=== PATIENT | female | born 1995 | race Caucasian/White ===

== ENCOUNTER → 2017-10-11 12:55 | Outpatient (CLI) | payer OTHER, SELFPAY ==
[2017-10-11 16:04] LABS: Chlamydia Trachomatis by PCR Negative (Negative); Neisserai gonorrhoeae by PCR Negative (Negative); Probe Check PASS; Sample Adequacy Control PASS; Specimen Processing Control PASS
[2017-10-13 11:10] LABS: Hep C Antibodies <0.1 s/co ratio (0.0-0.9); Rubeola IgG Ab > 300.0 AU/mL (Immune >29.9); V-Zoster IgG (Immunity) < 135 index (Immune >165)
== END ==
PROVIDERS: Family Provider Pediatrics; PCP Pediatrics; Visit Provider Pediatrics
DX: Z00.00 Encounter for general adult medical examination without abnormal findings (principal)
CPT/HCPCS: 36415; 86706; 86735; 86762; 86765; 86787; 86803; 87491; 87591

== ENCOUNTER → 2018-06-29 15:32 | Outpatient (CLI) | payer OTHER, SELFPAY | PROVIDERS: Family Provider Pediatrics; PCP Pediatrics; Referring Provider Pediatrics; Visit Provider Pediatrics | DX: Z00.00 Encounter for general adult medical examination without abnormal findings (principal) | CPT/HCPCS: 86706; 86787 ==

== ENCOUNTER 2018-12-27 10:45 | Emergency (ER) | payer OTHER, SELFPAY ==
[2018-12-27 10:47] VITALS: BP 142/73; PULSE 99; RESP 18; TEMP 36.3; O2SAT 99; BMI 24.9
--- NOTE | 2018-12-27 11:04 | CT_ITS ---
STUDY: CT ABDOMEN AND PELVIS WITHOUT CONTRAST REASON FOR EXAM: Female, 23 years old. Left flank pain. Hematuria. UTI. RADIATION DOSAGE (If Supplied By Facility): CTDIvol = ( 6.50 ) mGy, DLP = ( 310.15 ) mGycm TECHNIQUE: Transaxial images were obtained from the dome of the diaphragm to the symphysis pubis without oral contrast, and without intravenous contrast. Sagittal and coronal images were reconstructed. Individualized dose optimization techniques were used for this CT. COMPARISON: None. FINDINGS: The visualized lung bases are unremarkable. The visualized portions of the heart are within normal limits. Normal liver. Normal gallbladder and extrahepatic biliary system. Normal spleen. Normal pancreas. Normal bilateral adrenal glands. Mild degree of right hydronephrosis and right hydroureter. No obstructing calculus is seen at this time. This may represent a recent passage of a calculus. Normal left kidney. Normal visualized stomach. Normal small intestine. Normal colon. The appendix is visualized and appears normal. Normal abdominal aorta. Normal inferior vena cava. Normal retroperitoneum. Distended urinary bladder. There is a 2 cm cyst in the right ovary. Normal abdominal wall. Normal osseous structures. CT/Abdomen/Pelvis without Cont IMPRESSION: Right-sided hydronephrosis and hydroureter. No obstructive site is visualized. This may represent changes secondary to a recently passed calculus. 2 cm cyst in the right ovary. Electronically Signed: Mic Castañeda, at 12:42 EDT , Service support ,
--- NOTE | 2018-12-27 11:32 | ED.DCSUM_ITS ---
History of Present Illness Chief Complaint: Flank Pain Narrative: 23-year-old female presents with left flank pain. She was recently diagnosed with a urinary tract infection and started on an oral antibiotic as well as Pyridium. Her symptoms have not resolved and she is now passing clots and having flank pain. She is concerned that she may have a kidney stone. She denies pelvic pain or vaginal bleeding. Denies fever. She did vomit twice yesterday. Pain is currently mild in severity. No relieving or exacerbating factors. Past Medical History - Allergies and Home Meds Allergies/Adverse Reactions: Allergies No Known Allergies Allergy (Verified 12/27/18 10:46) Primary Care Physician: May Taylor MD [Primary Care Provider] - Smoking Status: Never smoker Review of Systems General: Denies: Chills, Fever, Sweats Eyes: Denies: Visual changes - bilaterally, Diplopia ENT: Denies: Rhinorrhea, Sore throat Cardiovascular: Denies: Chest pain, Palpitations Respiratory: Denies: Dyspnea, Cough, Dyspnea on exertion Gastrointestinal: Denies: Abdominal pain, Nausea, Vomiting, Diarrhea, Melena, Hematochezia Genitourinary: Reports: Dysuria, Hematuria. Denies: Frequency Musculoskeletal: Reports: Back pain. Denies: Extremity Pain Skin: Denies: Rash, Wounds Neurological: Denies: Headache, Weakness, Numbness Physical Exam Vital Signs/Narrative: Vital Signs Temp Pulse Resp BP Pulse Ox 12/27/18 10:47 97.3 F L 99 18 142/73 H 99 General: Well nourished, Well developed, No Acute Distress Head: Normocephalic, Atraumatic Eyes: Perrl, EOMI ENT: Moist mucous membranes, No rhinorrhea Neck: Supple, Nontender Cardiovascular: Regular rate, Regular rhythm, No murmurs Respiratory: No distress, CTA bilaterally, Chest nontender Abdomen: Soft, Nontender, Nondistended, Normal bowel sounds Back: Nontender, Normal Inspection Extremities: Nontender, No edema Skin: Normal color, No rash Neurological: Alert, Oriented x3, Cranial nerves II-XII grossly intact, Normal Strength, Normal Sensation Psychological: Normal affect, Normal Mood Diagnostic/Tx/Re-eval - Medical Decision Making CT scan reveals right-sided hydronephrosis and hydroureter, possibly consistent with recently passed stone. Her pain is actually on the left side however so unclear if this is significant or not. She does have nitrites in her urine but she is currently on an oral antibiotic. She has only been on it for 1 day. She is not nauseated or vomiting at this point. I do not suspect a pyelonephritis, although it is possible with the findings on the CT scan. She looks quite well, does not have a fever, and is tolerating p.o. here without difficulty so I do feel she can safely be discharged home to continue outpatient management. I do feel I should refer her to urology for follow-up because of her abnormal findings. She has no pelvic pain to suggest ovarian torsion or other life- threatening process. She will return here if worse. ED Disposition - Plan for ED Patient: Disposition: Home or Assisted Living Diagnosis: Hematuria, Pyelonephritis, Flank pain Instructions: KIDNEY STONE, Passed, PYELONEPHRITIS, Female (Adult), Hematuria Referrals: Jarod Peraza MD [STAFF PHYSICIAN] - As soon as possible
[2018-12-27 11:54] LABS: Bacteria 0 SEEN /hpf (None Seen); Mucous, Urine 0 SEEN /hpf (<or=2+); Squamous Epithelial Cells - UA 0 SEEN /hpf (5-10); White Blood Cells 0 SEEN /hpf (0-5)
[2018-12-27 11:58] LABS: Color, Urine Yellow (Yellow); Glucose, Dipstick Normal (Normal); Ketone-Dipstick Negative (Negative); Leukocyte Esterase-Dipstick Negative /ul (Negative); Nitrite-Dipstick Positive (Negative); Occult Blood-Urine 250 /ul (Negative); Protein-Dipstick Negative (Negative); Specific Gravity, Urine 1.005 (1.002-1.030); Urine Bilirubin Dipstick Negative (Negative); Urine Clarity Clear (Clear); Urine Urobilinogen Normal (Normal)
[2018-12-27 12:07] LABS: Internal QC Validated? YES +Cl - CLEAR BKGD; Pregnancy, Urine Negative Negative
[2018-12-27 12:09] LABS: Red Blood Cells-Urine 0-5 SEEN /hpf (0-5)
[2018-12-27 13:50] VITALS: BP 120/69; PULSE 77; RESP 16
== END 2018-12-27 13:51 | disposition home or self-care (01) ==
PROVIDERS: Emergency Provider Emergency Medicine; Family Provider Pediatrics; PCP Pediatrics
DX: N12 Tubulo-interstitial nephritis, not specified as acute or chronic (principal); N13.30 Unspecified hydronephrosis
CPT/HCPCS: 74176; 81001; 81025; 87086; 99282

== ENCOUNTER → 2019-01-16 17:20 | Outpatient (CLI) | payer OTHER, SELFPAY ==
[2018-12-27 10:47] VITALS: BMI 24.9
== END ==
PROVIDERS: Family Provider Pediatrics; PCP Pediatrics; Referring Provider Nurse Practitioner Adult Health
DX: N76.0 Acute vaginitis (principal); N28.89 Other specified disorders of kidney and ureter; N76.1 Subacute and chronic vaginitis
CPT/HCPCS: 86738

== ENCOUNTER → 2019-01-30 09:56 | Outpatient (CLI) | payer OTHER, SELFPAY ==
--- NOTE | 2019-01-30 10:36 | NURSING ---
inserted 16 cay[place] islander corrales catherter for cystogram, under pre sales technical engineer, pt tolerated well, removed directly after the procedure.
--- NOTE | 2019-01-30 10:45 | RAD_ITS ---
CLINICAL HISTORY: Female, 23 years old. Dysuria. PROCEDURE: Cystogram. FLUOROSCOPY TIME (if supplied): (2:00) minutes/seconds 200 mL of contrast installed into the bladder in a retrograde fashion through indwelling Butler catheter. The radiologist installed the contrast into the bladder. TECHNIQUE: (All elements of maximal sterile barrier technique followed, including US elements as applicable) Contrast was instilled into the bladder via the indwelling Butler catheter. 20 cc of contrast was administered. The urinary bladder is unremarkable. There is no evidence of vesicoureteral reflux. RAD/Cystography min 3 Views IMPRESSION: Unremarkable examination. Electronically Signed: Mic Castañeda, at 15:49 EDT , Service support ,
== END ==
PROVIDERS: Family Provider Pediatrics; PCP Pediatrics; Referring Provider Nurse Practitioner Adult Health; Visit Provider Nurse Practitioner Adult Health
DX: R30.0 Dysuria (principal); N13.30 Unspecified hydronephrosis
CPT/HCPCS: 51600; 74430; Q9967

== ENCOUNTER → 2019-02-16 09:47 | Outpatient (CLI) | payer OTHER, SELFPAY ==
--- NOTE | 2019-02-16 10:00 | RAD_ITS ---
STUDY: IVP REASON FOR EXAM: Female, 23 years old. Right flank pain TECHNIQUE: IVP completed after injection of 50 mL of Isovue-300 contrast COMPARISON: None. FINDINGS: [employer] Sales Representative film demonstrates no suspicious calcifications overlying either renal shadow, or along the expected course of either ureter. Retained stool noted in the ascending colon After contrast was injected, there are prompt symmetric nephrograms with prompt symmetric excretion of contrast into the collecting systems. No renal contour amount noted. Left renal calyces and left ureter of normal course and caliber. The right renal calyces show blunting and there is mild enlargement of the right UPJ. The right ureter is also mildly dilated compared to the left. No obstructing stone noted. Bladder distends normally without evidence of filling defect, or post void residual RAD/Pyelogram No James IMPRESSION: There is nonspecific blunting of the right renal calyces, and mild dilatation of the right ureter. Etiology is unknown, there is no demonstrated stone or stricture. Normal left kidney collecting system ureter and bladder. Electronically Signed: James Allen MD at 11:55 EDT , Service support ,
== END ==
PROVIDERS: Family Provider Pediatrics; PCP Pediatrics; Referring Provider Nurse Practitioner Adult Health; Visit Provider Nurse Practitioner Adult Health
DX: N13.30 Unspecified hydronephrosis (principal)
CPT/HCPCS: 74410; Q9967

== ENCOUNTER 2021-07-06 09:50 | Emergency (ER) | payer OTHER, SELFPAY ==
[2021-07-06 09:51] VITALS: BP 107/78; PULSE 88; RESP 16; TEMP 36.2; O2SAT 98; BMI 25.7
[2021-07-06] MEDS: 0.9% Normal Saline 1,000 ML 1000 ML IV (10:19)
[2021-07-06] MEDS: Ondansetron 4 MG/2 ML Vial IV (10:19)
--- NOTE | 2021-07-06 10:24 | EDS_ITS ---
HPI HPI - GI History of Present Illness Chief Complaint: Diarrhea Informant: patient Abdominal Pain/Flank Pain Onset: Yesterday Narrative Narrative: Patient is a 25-year-old female presenting with nausea, vomiting, bloody diarrhea and abdominal pain. Patient states yesterday morning showed having diarrhea and then within an hour it turned to bright red blood per rectum as well as clots of blood. She had 2 visits of vomiting yesterday. She she feels weak and dizzy. She had lower abdominal pain that is worse in the right side and into her right back. She states her symptoms overall are improving today but she still having diarrhea with blood in her stool. She still nauseous. She has similar episode about a year ago where she went to [facility] and had a CT scan. She followed up with GI and had a colonoscopy. They told her it was fine recommend she follow-up with gynecology for possible pelvic floor dysfunction. Patient was told at that time she might have a ruptured ovarian cyst. She was put on daily MiraLAX by GI. She states she is continue to take her MiraLAX up until yesterday. She denies any family history of any bleeding disorders or inflammatory bowel disease. She notes her grandmother does have IBS. No other complaints at this time. PFSH PFSH Medical History no medical history Home Medications cephalexin 500 mg PO BID 12/27/18 [History Last Taken Unknown] phenazopyridine 200 mg PO PRN PRN 12/27/18 [History Last Taken Unknown] Allergy/AdvReac Type Severity Reaction Status Date / Time No Known Allergies Allergy Verified 12/27/18 10:46 Surgical History no surgical history Social History Smoking Status: Never smoker ROS ROS ED Constitutional Constitutional ED: Denies chills or fever(s) ENT ENT ED: Denies sore throat Cardiovascular Cardiovascular: Denies chest pain or palpitations Respiratory/Chest Respiratory/Chest: Denies cough or dyspnea Gastrointestinal Gastrointestinal: Reports abdominal pain, diarrhea, nausea, vomiting and other Details: Bright red blood per rectum Genitourinary Genitourinary ED: Reports other Details: Last menstrual period 2 to 3 weeks ago ; Denies dysuria, hematuria or urinary frequency Musculoskeletal Musculoskeletal: Reports back pain; Denies arthralgias or myalgias Integumentary Denies rash Neurologic Neurologic: Reports weakness; Denies headache(s) Psychiatric Psychiatric: Denies anxiety or depression EXAM Physical Exam Const Vital Signs: 07/06/21 09:51 07/06/21 12:06 Temperature 97.1 F L Temperature Source Temporal Pulse Rate 88 Respiratory Rate 16 16 Blood Pressure 107/78 Blood Pressure Mean 87 Pulse Ox 98 Oxygen Delivery Method Room Air Positive well nourished and well developed General Appearance ED: well developed; Negative for pallor HEENT normocephalic and atraumatic Eyes PERRL and EOMs intact bilaterally General Eye ED: Negative for pale conjunctiva Neck supple Resp normal respiratory effort and clear to auscultation bilaterally Cardio regular rate, regular rhythm and no murmurs GI non-tender and non-distended Auscultation: normoactive bowel sounds Palpation: soft; Negative for guarding or rigid Back/Spine no CVA tenderness Neuro Sensorium / Orientation: alert, oriented to person, oriented to place and oriented to time Motor Exam: Negative for general weakness Psych mental status grossly normal Skin no wounds General Skin Exam: Negative for pallor Lesions: no lesions Rashes: no rashes MDM MDM MDM Narrative Medical decision making narrative: Patient is evaluated for vomiting and the diarrhea that started yesterday. She has had bright red blood per rectum associate with her diarrhea. Patient currently has normal vital signs and appears nontoxic. She has a benign abdominal exam. On rectal exam she does have brown stool. Do not appreciate any hemorrhoids or active bleeding. Her hemoglobin is normal at 14.1. She does not have a leukocytosis. No significant laboratory abnormalities. This time I do not think imaging is indicated. Patient will follow up with GI. She is encouraged to the follow-up with the GI doctor she saw last year or is given referral for a local GI, Friend. She is encouraged start taking an antacid given her associated nausea and vomiting. She states she can take that [id number]. She is not on any prescriptions for any nausea medicine. She is counseled on return precautions. Patient discharged home in stable condition. Lab Data Labs: Laboratory Results - last 24 hr 07/06/21 07/06/21 07/06/21 10:17 10:17 10:37 WBC 9.0 RBC 4.73 Hgb 14.1 Hct 40.8 MCV 86.3 MCH 29.8 MCHC 34.6 RDW Std Deviation 38.7 RDW Coeff of Lynnette 12.3 Plt Count 309 MPV 10.0 Immature Gran % (Auto) 0.200 Neut % (Auto) 72.3 H Lymph % (Auto) 19.4 [place] % (Auto) 6.7 Eos % (Auto) 0.8 Baso % (Auto) 0.6 Absolute Neuts (auto) 6.5 Absolute Lymphs (auto) 1.75 Nucleated RBC % 0 Sodium 136 Potassium 3.4 L Chloride 103 Carbon Dioxide 28.0 Anion Gap 5 BUN 9 Creatinine 0.77 Estim Creat Clear Calc 97.28 Est GFR (MDRD) Af Amer 118 Est GFR (MDRD) Non-Af 98 BUN/Creatinine Ratio 11.7 Glucose 104 Calcium 9.2 Total Bilirubin 1.30 H AST 12 L ALT 19 Alkaline Phosphatase 108 Total Protein 8.0 Albumin 3.9 Globulin 4.1 Albumin/Globulin Ratio 1.0 Lipase 40 L Urine Color Yellow Urine Clarity Clear Urine pH 6.0 Ur Specific [place] 1.010 Urine Protein Negative Urine Glucose (UA) Normal Urine Ketones Negative Urine Occult Blood Negative Urine Nitrite Negative Urine Bilirubin Negative Urine Urobilinogen Normal Ur Leukocyte Esterase Negative Urine RBC 0 SEEN Urine WBC 0 SEEN Ur Squamous Epith Cells 0 SEEN Urine Bacteria 0 SEEN Urine Mucus 0 SEEN Urine Test Negative Discharge Plan Triage Chief Complaint: Diarrhea ED Provider: Angi Trimble Dx/Rx/DC Orders Clinical Impression: BRBPR (bright red blood per rectum), Nausea vomiting and diarrhea Instructions: ED Diarrhea, Unknown Cause, ED Lower GI Bleeding (Stable) Prescriptions: No Action phenazopyridine 200 MG tablet 200 mg PO PRN PRN (Reason: URINARY S/S) RF: 0 cephalexin 500 MG capsule 500 mg PO BID RF: 0 Primary Care Provider: Care Physician,No Primary Referrals: Mark Munoz DO [STAFF PHYSICIAN] - 1-2 Weeks Care Physician,No Primary [Primary Care Provider] - Activity Restrictions/Additional Instructions: Take an [id number] antacid such as Pepcid. Drink lots of fluids. Return if you have worsening symptoms including worsening pain, increased bleeding or feeling like you are going to pass out. Disposition Disposition: Home, Self Care
[2021-07-06 10:32] LABS: Absolute Lymphocyte Count 1.75 X10^3/uL (0.83-4.51); Absolute Neutrophil Count 6.5 X10^3/uL (2.0-7.7); Basophil# 0.05 X10^3/uL; Basophil% 0.6 % (0-1); Eosinophil# 0.07 X10^3/uL; Eosinophils% 0.8 % (0-5); Hematocrit 40.8 % (37-47); Hemoglobin 14.1 g/dL (12.0-15.0); Lymphocyte # 1.75 X10^3/ul (0.83-4.51); Lymphocyte % 19.4 % (19-41); Mean Corp Hgb Conc 34.6 g/dL (32-36); Mean Corpuscular Hgb 29.8 pg (27.0-32.0); Mean Corpuscular Volume 86.3 fL (81-99); Monocyte% 6.7 % (0-10); NRBC Flagged by Analyzer 0 % (0-5); Neutrophil # 6.51 X10^3/uL (2.7-7.7); Neutrophil % 72.3 % (47-70); Platelet Count 309 K/mm3 (150-450); RBC Distribution Width CV 12.3 % (11.6-14.6); RBC Distribution Width SD 38.7 fl (35.1-43.9); Red Blood Count 4.73 M/mm3 (4.2-5.4)
[2021-07-06 10:42] LABS: Bacteria 0 SEEN /hpf (None Seen); Mucous, Urine 0 SEEN /hpf (<or=2+); Red Blood Cells-Urine 0 SEEN /hpf (0-5); Squamous Epithelial Cells - UA 0 SEEN /hpf (5-10); White Blood Cells 0 SEEN /hpf (0-5)
[2021-07-06 10:49] LABS: AST(SGOT) 12 U/L (15-37); Alanine Aminotransfer ALT/SGPT 19 U/L (13-56); Albumin, Serum 3.9 g/dL (3.2-5.0); Alkaline Phosphatase 108 U/L (45-117); Anion Gap 5 (5-15); BUN 9 mg/dL (7-18); BUN/Creat Ratio 11.7 RATIO (10-20); Calcium,Total 9.2 mg/dL (8.5-10.1); Chloride 103 mmol/L (98-107); Creatinine, Serum 0.77 mg/dL (0.55-1.02); EST Glomerular Filtration Rate 98 mL/min (>60); Est Glom Filt Rate - Afr Amer 118 mL/min (>60); Estimated Creatinine Clearance 97.28 ml/min; Globulin 4.1 g/dL (2.2-4.2); Glucose 104 mg/dL (74-106); Lipase 40 U/L (73-393); Potassium 3.4 mmol/L (3.5-5.1); Sodium Level 136 mmol/L (136-145)
[2021-07-06 10:49] LABS: Color, Urine Yellow (Yellow); Glucose, Dipstick Normal (Normal); Ketone-Dipstick Negative (Negative); Leukocyte Esterase-Dipstick Negative /ul (Negative); Nitrite-Dipstick Negative (Negative); Occult Blood-Urine Negative /ul (Negative); Protein-Dipstick Negative (Negative); Urine Bilirubin Dipstick Negative (Negative); Urine Clarity Clear (Clear); Urine Urobilinogen Normal (Normal)
[2021-07-06 10:59] LABS: Internal QC Validated? YES +Cl - CLEAR BKGD; Pregnancy, Urine Negative Negative
[2021-07-06 12:06] VITALS: RESP 16
== END 2021-07-06 12:55 | disposition home or self-care (01) ==
PROVIDERS: Emergency Provider Emergency Medicine; Visit Provider Emergency Medicine
DX: R11.2 Nausea with vomiting, unspecified (principal); R19.7 Diarrhea, unspecified; K92.1 Melena; R10.30 Lower abdominal pain, unspecified
CPT/HCPCS: 80053; 81001; 81025; 83690; 85025; 96361; 96374; 99282; J7030; A4216; J2405

== ENCOUNTER 2025-04-30 15:54 | Emergency (ER) | payer OTHER, SELFPAY ==
[2025-04-30 15:55] VITALS: BP 125/83; PULSE 88; RESP 16; TEMP 37; O2SAT 99; BMI 319.0
[2025-04-30] MEDS: 0.9% Normal Saline (1000mL) 1,000 ML 1000 ML IV (16:10)
--- NOTE | 2025-04-30 16:22 | EX.ED.DYSGE1 ---
HPI History of Present Illness Chief Complaint: Nausea/Vomiting Detail of Chief Complaint: Nausea vomiting first trimester Onset/Context/Timing Onset: Days Context: Sudden Onset Timing: Continuous and Waxes and wanes Quality: Constant nausea with vomiting several times for the past 36+ hours. 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 Based on dates she is 9 weeks gestation. She denies fever, chills night sweats. She denies headache. Denies visual disturbance. She denies cardiac or respiratory symptoms. She denies abdominal pain or diarrhea. She does have a history of IBS. She does endorse some discomfort with urination. She is not going as frequently. She is going small amounts. She denies low back pain or flank pain. She has not noted a rash. Prior similar symptoms: No Recent Illness/Hospitalization: No PFSH PFSH Home Medications ?Medication ?Instructions ?Recorded ?Last Taken ?Type cephalexin 500 mg capsule 500 mg PO BID 12/27/18 Unknown History phenazopyridine 200 mg tablet 200 mg PO PRN PRN URINARY S/S 12/27/18 Unknown History nitrofurantoin 100 mg PO Q12 #10 CAPSULES 04/30/25 Unknown Rx monohydrate/macrocrystals 100 mg capsule ondansetron 4 mg disintegrating 4 mg PO Q8H PRN PRN Nausea #10 tabs 04/30/25 Unknown Rx tablet Allergy/AdvReac Type Severity Reaction Status Date / Time No Known Allergies Allergy Verified 04/30/25 15:58 Social History Smoking Status: Never smoker ROS ROS ED Constitutional Constitutional ED: Denies chills, fever(s), subjective, sweats or weight loss Eyes Eyes: Denies blurry vision or change in vision ENT ENT ED: Reports rhinorrhea and other Details: The nasal symptoms started several weeks ago. ; Denies sore throat Cardiovascular Cardiovascular: Denies chest pain or palpitations Respiratory/Chest Respiratory/Chest: Denies cough, dyspnea or dyspnea on exertion Gastrointestinal Gastrointestinal: Reports nausea, vomiting and other Details: No change in color, consistency or caliber of her stool. ; Denies abdominal pain, constipation or diarrhea Genitourinary Genitourinary ED: Reports dysuria, LMP (females 10-50) Details: Comment: (9 weeks gestation per patient) and urinary frequency; Denies hematuria Musculoskeletal Musculoskeletal: Denies arthralgias, back pain or myalgias Integumentary Denies rash Neurologic Neurologic: Reports weakness; Denies headache(s) or paresthesias Hematologic/Lymphatic Hematologic/Lymphatic: Reports systems reviewed and no addt'l complaints, except as documented EXAM Physical Exam Const Vital Signs: 04/30/25 15:55 Temperature 98.6 F Temperature Source Oral Pulse Rate 88 Respiratory Rate 16 Blood Pressure 125/83 H Blood Pressure Mean 97 Pulse Ox 99 Oxygen Delivery Method Room Air Positive well nourished and well developed Constitutional Narrative: Patient appears slightly pale. Her blood pressure slightly elevated. She appears in no distress. General Appearance ED: well developed, NAD and pallor; Negative for cyanotic or diaphoretic HEENT Reports dry mucous membranes HEENT Narrative: Head is atraumatic and normocephalic. Ears are normal. Nares are patent. Posterior pharynx is normal Mouth ED: Yes dry mucous membranes Mouth: dry mucous membranes Eyes PERRL and EOMs intact bilaterally General Eye ED: Negative for pale conjunctiva or scleral icterus Neck no lymphadenopathy, supple and no JVD Resp normal respiratory effort and clear to auscultation bilaterally Cardio regular rate, regular rhythm, S1 normal heart sound, S2 normal heart sound and no murmurs GI normal to inspection, nondistended, normoactive bowel sounds, non-tender, non-distended and no masses; Negative for hepatosplenomegaly Back/Spine no CVA tenderness Extremity normal to inspection Neuro oriented x3 and CN's II-XII intact bilaterally Sensorium / Orientation: alert Psych mental status grossly normal Skin no rashes or lesions noted, no wounds and skin turgor normal General Skin Exam: pallor; Negative for jaundice MDM MDM MDM Narrative Medical decision making narrative: Patient presents with symptoms consistent with hyperemesis gravidarum. Will obtain a BMP to assess CO2 anion gap as well as renal function. UA to assess for infection as well as ketones and significant gravity. 1 L of normal saline was ordered. She also will receive 4 mg of Zofran for her nausea and vomiting. Since she was sent by OB will contact after workup has been completed. Lab Data Attestation: I reviewed the patient's lab results. Lab results narrative: Basic metabolic panel is remarkable for an elevated anion gap acidosis, this is mild. Urinalysis kimmy of gravity 1.025, proteins, ketones, occult blood. Microscopic reveals 5-10 RBCs and 5-10 WBCs 1+ bacteria. This is a good specimen. Since she is culture was sent and she is symptomatic. She received first dose of Macrobid in the emergency department. Labs: Laboratory Results - last 24 hr 04/30/25 04/30/25 16:15 16:33 Sodium 136 Potassium 3.8 Chloride 100 Carbon Dioxide 19.3 L Anion Gap 16 H BUN 9 Creatinine 0.64 L Estim Creat Clear Calc 764.45 H Est GFR (MDRD) Non-Af 123 BUN/Creatinine Ratio 14.4 Glucose 94 Calcium 9.7 Urine Color Yellow Urine Clarity Sl. Cloudy Urine pH 5.0 Ur Specific [place] 1.025 Urine Protein 30 H Urine Glucose (UA) Normal Urine Ketones 150 A* Urine Occult Blood 10 H Urine Nitrite Negative Urine Bilirubin Negative Urine Urobilinogen 1 H Ur Leukocyte Esterase 25 H Urine RBC 5-10 SEEN Urine WBC 5-10 SEEN Ur Squamous Epith Cells 0-5 SEEN Urine Bacteria 1+ Urine Mucus 1+ Treatment and Re-Evaluation :: Patient passed p.o. challenge. She is drinking 3 full cups of water. She does feel better. She was discharged with prescription for nitrofurantoin and Zofran ODT. She is to follow-up with the [facility] clinic. Discharge Plan Triage Chief Complaint: Nausea/Vomiting ED Provider: Reginald Herrera Dx/Rx/DC Orders Clinical Impression: Hyperemesis gravidarum, Urinary tract infection during , High anion gap metabolic acidosis, Ketosis, First trimester Instructions: ED Hyperemesis Gravidarum, ED Cystitis Female Adult Prescriptions: New ondansetron 4 mg tablet,disintegrating 4 mg PO Q8H PRN PRN (Reason: Nausea) Qty: 10 0RF nitrofurantoin monohyd/m-cryst 100 mg capsule 100 mg PO Q12 Qty: 10 0RF No Action phenazopyridine 200 MG tablet 200 mg PO PRN PRN (Reason: URINARY S/S) cephalexin 500 MG capsule 500 mg PO BID Primary Care Provider: Care Physician,No Primary Referrals: Shirley Tang CNM [Med Staff - Adv Practice Prof, Obstetrics] - 1-2 Days if not improving Care Physician,No Primary [Primary Care Provider, Medical] Activity Restrictions/Additional Instructions: 1. Take medication as prescribed. Take antibiotics till gone. If you have nausea and vomiting again return to the emergency department or follow-up with [facility]. Print Language: [place]ian Disposition Disposition: Home, Self Care
[2025-04-30 16:43] LABS: Color, Urine Yellow (Yellow); Glucose, Dipstick Normal (Normal); Leukocyte Esterase-Dipstick 25 /ul (Negative); Nitrite-Dipstick Negative (Negative); Occult Blood-Urine 10 /ul (Negative); Protein-Dipstick 30 mg/dl (Negative); Specific Gravity, Urine 1.025 (1.002-1.030); Urine Bilirubin Dipstick Negative (Negative)
[2025-04-30 16:45] LABS: Ketone-Dipstick 150 mg/dl (Negative)
[2025-04-30 16:45] LABS: Anion Gap 16 (5-15); BUN 9 mg/dL (4-19); BUN/Creat Ratio 14.4 RATIO (10-20); Calcium,Total 9.7 mg/dL (7.6-11.0); Carbon Dioxide 19.3 mmol/L (21.0-32.0); Chloride 100 mmol/L (98-108); Glucose 94 mg/dL (70-99); Potassium 3.8 mmol/L (3.3-5.1)
[2025-04-30 16:51] LABS: Squamous Epithelial Cells - UA 0-5 SEEN /hpf (5-10)
[2025-04-30 16:52] LABS: Mucous, Urine 1+ /hpf (<or=2+); Red Blood Cells-Urine 5-10 SEEN /hpf (0-5)
[2025-04-30 18:27] VITALS: BP 120/70; PULSE 70; RESP 18; TEMP 36.7; O2SAT 100
== END 2025-04-30 18:27 | disposition home or self-care (01) ==
PROVIDERS: Emergency Provider Emergency Medicine; Visit Provider Emergency Medicine
DX: O21.1 Hyperemesis gravidarum with metabolic disturbance (principal); O23.41 Unspecified infection of urinary tract in pregnancy, first trimester; Z3A.09 9 weeks gestation of pregnancy
CPT/HCPCS: 80048; 81001; 87086; 87088; 96361; 96374; 99282; A4216; J2405

== ENCOUNTER 2025-05-20 06:10 | Emergency (ER) | payer OTHER, SELFPAY ==
[2025-05-20 06:12] VITALS: BP 127/75; PULSE 124; RESP 16; TEMP 36.7; O2SAT 96; BMI 30.8
--- NOTE | 2025-05-20 06:21 | ED.VIS.GI ---
HPI HPI - GI History of Present Illness Chief Complaint: Nausea/Vomiting Informant: patient and parent Narrative Narrative: Patient is a 29-year-old female, 12 weeks , presenting with hematemesis, nausea, and abdominal cramping. - Reports three episodes of hematemesis this morning, describing the volume as moderate. - Has been experiencing frequent emesis prior to hematemesis throughout the entire . - Associated symptoms include lower abdominal cramping and chest pain, described as a burning sensation. - Denies vaginal bleeding or syncope, but reports lightheadedness and inability to eat due to nausea/vomiting. - Last ultrasound was around 3-4 weeks ago, unremarkable. - Currently taking promethazine suppositories and low-dose aspirin as prescribed by [facility] [employer] to prevent preeclampsia. - Reports a recent UTI diagnosis three weeks ago, with persistent dysuria. PFSH PFSH Home Medications ?Medication ?Instructions ?Recorded ?Last Taken ?Type ondansetron 4 mg disintegrating 4 mg PO Q8H PRN PRN Nausea #10 tabs 04/30/25 Unknown Rx tablet famotidine 20 mg tablet 20 mg PO BID #28 tabs 05/20/25 Unknown Rx metoclopramide HCl 10 mg tablet 10 mg PO Q6H PRN nausea and 05/20/25 Unknown Rx vomiting #20 tabs Allergy/AdvReac Type Severity Reaction Status Date / Time No Known Allergies Allergy Verified 05/20/25 06:16 Social History Smoking Status: Never smoker ROS [facility] ED Constitutional Constitutional ED: Denies chills or fever(s) Eyes Eyes: Denies change in vision or diplopia ENT ENT ED: Denies rhinorrhea or sore throat Cardiovascular Cardiovascular: Reports chest pain; Denies palpitations Respiratory/Chest Respiratory/Chest: Denies cough or dyspnea Gastrointestinal Gastrointestinal: Reports abdominal pain, hematemesis, nausea and vomiting; Denies diarrhea, hematochezia or melena Genitourinary Genitourinary ED: Denies dysuria or hematuria Musculoskeletal Musculoskeletal: Denies back pain or neck pain Integumentary Denies abscess or rash Neurologic Neurologic: Denies headache(s), paresthesias or weakness EXAM Physical Exam Const Vital Signs: 05/20/25 06:12 Temperature 98.1 F Temperature Source Oral Pulse Rate 124 H Respiratory Rate 16 Blood Pressure 127/75 H Blood Pressure Mean 92 Pulse Ox 96 Oxygen Delivery Method Room Air Positive well nourished and well developed General Appearance ED: well developed and NAD HEENT Reports moist mucous membranes normocephalic and atraumatic Eyes PERRL and EOMs intact bilaterally Neck full ROM and supple Resp normal respiratory effort and clear to auscultation bilaterally Cardio regular rate, regular rhythm and no murmurs Rate: tachycardic GI non-tender and non-distended Auscultation: normoactive bowel sounds Palpation: soft Back/Spine no CVA tenderness General Back: other FROM Extremity normal to inspection General Extremety ED: Negative for edema, pulses abnormal or tenderness General Extremity: Negative for edema or pulses abnormal Neuro oriented x3, CN's II-XII intact bilaterally and no sensory deficits noted Sensorium / Orientation: awake and alert Motor Exam: strength 5/5 throughout Skin no rashes or lesions noted and no wounds MDM MDM MDM Narrative Medical decision making narrative: Other than a low bicarbonate, the blood work is unremarkable. The patient was given one liter of IV fluids and IV Reglan. She is doing better. She tolerated a GI cocktail, which alleviated her chest discomfort, thus likely caused by GERD and vomiting. A bedside ultrasound shows a single live intrauterine fetus with good movement. The crown-rump length is consistent with a 12-week, 1-day fetus, and heart tones of around 170, all of which is reassuring. Once the patient is tolerating oral fluids, the plan is to discharge her home. We can provide her with a prescription for Reglan if needed, and we will evaluate her urinalysis for a possible infection. Regarding this morning?s episodes of hematemesis, I suspect they were most likely due to a Laura-Joe tear. She does not have a significantly elevated BUN to suggest a hemodynamically significant upper GI bleed. Given that she has been vomiting daily for weeks, she is at risk for a minor Laura-Joe tear that could bleed more than expected, especially since she is taking aspirin. She has had no vomiting or bleeding while in the ED. I recommend that she take Pepcid daily and follow up with her [facility] [employer]. Lab Data Attestation: I reviewed the patient's lab results. Labs: Laboratory Results - last 24 hr 05/20/25 06:25 WBC 9.3 RBC 4.71 Hgb 13.9 Hct 39.5 MCV 83.9 MCH 29.5 MCHC 35.2 RDW Std Deviation 37.4 RDW Coeff of Lynnette 12.4 Plt Count 312 MPV 9.5 Immature Gran % (Auto) 0.300 Neut % (Auto) 89.2 H Lymph % (Auto) 2.6 L Hudson % (Auto) 7.1 Eos % (Auto) 0.4 Baso % (Auto) 0.4 Absolute Neuts (auto) 8.3 H Absolute Lymphs (auto) 0.24 L Nucleated RBC % 0 Sodium 132 L Potassium 3.6 Chloride 99 Carbon Dioxide 17.6 L Anion Gap 16 H BUN 6 Creatinine 0.53 L Estim Creat Clear Calc 163.21 Est GFR (MDRD) Non-Af 129 BUN/Creatinine Ratio 10.6 Glucose 133 H Calcium 9.2 Discharge Plan Triage Chief Complaint: Nausea/Vomiting ED Provider: Bayron Begum Dx/Rx/DC Orders Clinical Impression: Hematemesis, Hyperemesis gravidarum, Mild dehydration, Chest pain due to GERD Instructions: Laura-Joe Tear, ED Hyperemesis Gravidarum Prescriptions: New metoclopramide HCl 10 mg tablet 10 mg PO Q6H PRN (Reason: nausea and vomiting) Qty: 20 0RF famotidine 20 mg tablet 20 mg PO BID Qty: 28 0RF No Action ondansetron 4 mg tablet,disintegrating 4 mg PO Q8H PRN PRN (Reason: Nausea) Qty: 10 0RF Primary Care Provider: Care Physician,No Primary Referrals: your ob [Other] - As soon as possible Print Language: Malay Disposition Disposition: Home, Self Care
[2025-05-20] MEDS: 0.9% Normal Saline (1000mL) 1,000 ML 999 ML IV (06:26)
[2025-05-20 06:36] LABS: Hematocrit 39.5 % (37-47); Hemoglobin 13.9 g/dL (12.0-15.0); Immature Granulocytes Count 0.030 X10^3/uL (0.0-0.0); Mean Corp Hgb Conc 35.2 g/dL (32-36); Mean Corpuscular Volume 83.9 fL (81-99); Mean Platelet Vol. 9.5 fl (6.2-12.0); NRBC Flagged by Analyzer 0 % (0-5); POSITIVE DIFFERENTIAL YES; Platelet Count 312 K/mm3 (150-450); RBC Distribution Width CV 12.4 % (11.6-14.6); RBC Distribution Width SD 37.4 fl (35.1-43.9); Red Blood Count 4.71 M/mm3 (4.2-5.4); White Blood Count 9.3 K/mm3 (4.4-11.0)
[2025-05-20 07:00] LABS: Anion Gap 16 (5-15); BUN 6 mg/dL (4-19); BUN/Creat Ratio 10.6 RATIO (10-20); Calcium,Total 9.2 mg/dL (7.6-11.0); Carbon Dioxide 17.6 mmol/L (21.0-32.0); Chloride 99 mmol/L (98-108); Estimated Creatinine Clearance 163.21 ml/min (50-250); Glucose 133 mg/dL (70-99); Potassium 3.6 mmol/L (3.3-5.1)
--- OUTSIDE RECORDS SUMMARY | 2025-05-20 07:01 | XMS RPT_ITS | CCD ---
Author Organization [facility] Care Team Providers Care Preschool Program Director Name Role Phone May Taylor Primary Care Provider [phone] Unavailable Primary Care Provider ANNA Overton Referring UnavailANNA Lyles Attending Unavailab le Allergies Allergy Classification Reported Allergen(s) Allergy Type Date of Onset Reaction(s) Facility (3 sources) linaclotide Drug Allergy 09-16-2020 Other: See Comments [facility] Work Phone: (2 sources) linaclotide Drug Allergy 09-16-2020 Unknown [facility] Medications Current Medications Medication Drug Class(es) Dates Sig (Normalized) Sig (Original) bisacodyl 5 mg delayed release oral tablet (3 sources) Stimulant Laxative Start: 09-16-2020 bisacodyl EC (DULCOLAX, BISACODYL,) 5 mg EC tablet Indications: Generalized abdominal pain Take two (2) each time, as explained on the instruction sheet provided. 4 tablet 09/16/2020 Active Comment on above: Take two (2) each ti me, as explained on the instruction sheet provided. polyethylene glycol 3350 94307 mg powder for oral solution (3 sources) Osmotic Laxative Start: 10-02-2020 polyethylene glycol 3350 (MIRALAX) 17 gram/dose powder Take 17 g by mouth twice daily. 850 g 3 10/02/2020 Active Comment on above: Take 17 g by mouth t wice daily. predniSONE 20 mg oral tablet (1 source) Start: 08-28-2021 End: 09-02-2021 take 2 tablets by mouth once daily predniSONE (DELTASONE) 20 mg tablet Take 2 tablets by mouth once daily for 5 days. 10 tablet 0 08/28/2021 09/02/2021 Active Comment on above: Take 2 tablets by mo uth once daily for 5 days. simethicone 80 mg chewable tablet (2 sources) Start: 01-23-2025 take 1 tablet by mouth four times daily before mealtime simethicone (Mylicon) 80 MG tablet Indications: Chronic idiopathic constipation Take 1 tablet (80 mg) by mouth 4 times daily (before meals and nightly). 180 tablet 2 01/23/2025 Active Problems Active Problems Problem Classification Problem Date Documented Da te Episodic/Chronic Abdominal pain (3 sources) Pain in pelvis; Translations: [Pelvic and perineal pain] Onset: 01-24-2025 01-23-2025 Episodic Nonspecific chest pain (1 source) Chest pain; Translations: [Chest pain, unspecified] 08-28-2021 Episodic Other diseases of bladder and urethra (3 sources) Overactive bladder; Translations: [Overactive bladder] Onset: 05-18-2018 05-18-2018 Chronic Other female genital disorders (1 source) Pain in female genitalia on intercourse; Translations: [Unspecified dyspareunia] 01-23-2025 Chronic Other female genital disorders (2 sources) Unspecified dyspareunia; Translations: [Unspecified dyspareunia] Onset: 01-24-2025 Chronic Other gastrointestinal disorders (2 sources) Chronic idiopathic constipation; Translations: [Chronic idiopathic constipation] Onset: 01-23-2025 01-23-2025 Chronic Other gastrointestinal disorders (1 source) Chronic idiopathic constipation; Translations: [Chronic idiopathic constipation] Onset: 01-23-2025 Chronic Pleurisy; pneumothorax; pulmonary collapse (1 source) Pleurisy; Translations: [Pleurisy] Episodic Past or Other Problems Problem Classification Problem Date Documented Da te Episodic/Chronic Other connective tissue disease (3 sources) Spasm; Translations: [Other muscle spasm] Onset: 06-12-2018 06-12-2018 Episodic Other connective tissue disease (3 sources) Muscle weakness; Translations: [Muscle weakness (generalized)] Onset: 07-12-2018 07-12-2018 Episodic Other female genital disorders (3 sources) Pelvic floor dysfunction; Translations: [Other specified conditions associated with female genital organs and menstrual cycle] Onset: 05-18-2018 11-24-2020 Episodic Results Test Name Value Interpretation Reference Range Facility US PELVIS TRANSVAGINALon PELVIS TRANSVAGINAL ---- Gynecological Report (Signed Final 01/25/2025 12:31 pm) ---- PATIENT INFO: ID #: [id number] : [birth year] (29 yrs)(F) Name: FREDERICK TEE Visit Date: 01/24/2025 04:15 pm ---- PERFORMED BY: Attending: Kyle Chaney MD Performed By: Sayra Saenz RDMS Referred By: ANNA ELLER MD Location: [facility] STRUCTURES ENGINEER Luis Manuel Del Rosario ---- SERVICE(S) PROVIDED: [employer] Car Loader Transvaginal [id number] ---- INDICATIONS: Pelvic and perineal pain R10.2 Unspecified dyspareunia N94.10 ---- TECHNIQUE/SCAN QUALITY: Technique: Transvaginal Approach ---- HISTORY: Age: 29 LMP: 01/10/25 Day Of Cycle: 15 ---- HX COMMENTS: Rt side pelvic pain. Non latex cover used. ---- UTERUS: Uterus: Visualized Position: Anteverted Size (cm) L: 6.58 W: 4.05 H: 3.13 Description: Normal appearance ---- ENDOMETRIUM: Thickness(mm): 5.6 Comment: The endometrium appears to split high in the fundus. This appearance suggests an arcuate vs. sub-septate uterus. ---- CERVIX: Normal appearance ---- CUL-DE-SAC: No free fluid was visualized ---- RIGHT OVARY: Status: Visualized Size (cm) L: 4.02 W: 3.91 H: 1.9 Vol (ml): 15.64 Comment: Small follicles seen. ---- LEFT OVARY: Status: Visualized Size (cm) L: 3.55 W: 3.15 H: 1.48 Vol (ml): 8.67 Comment: Small follicles seen. ---- ---- Kyle Chaney MD Electronically Signed Final Report 01/25/2025 12:31 pm ---- IMPRESSION: Probable arcuate vs sub-septate uterus. The endometrium measures 5.6 mm. No adnexal mass or free fluid identified. A follow up appointment is not scheduled. *Ultrasound cannot detect all pelvic or PRODUCTION MAINTENANCE MECHANIC abnormalities and normal findings cannot guarantee the absence of a problem.* Normal [facility] Office Visiton 01-23-2025 Follow-up visit [id number] Frederick Tee 1995 F Date Provider Department Center 01/23/2025 [id number]-NYXANNA ELLER*[facility] OB MG OB Offi Family History Family Status - Relation Status Age at Father Alive Mother Level of Service:24357 MD OFFICE/OUTPATIENT NEW LOW MDM 30 MINUTES Reason for Visit and Comments: New Patient [542] - Lower R abdominal pain Normal [facility] Progress Noteon 01-23-2025 Progress Note Subjective Patient ID: Frederick Tee is a 29 y.o. female who presents for New Patient (Lower R abdominal pain ). This new pt presents for consultation. She had a eab at 8 weeks 2 yrs ago. Since that time she has noted nonsepcific pain in the rlq. It is very sharp and debilitating just before her period. She describes the location as being right next to the hip and the entire rlq. It lasts the entire day if ovulation. It also lasts the week before. She also notes severe dyapareunia with deep penetration. Periods regular with flow senior php developer the past few months lasting 1-2 days. Prior to this time her periods lasted for up to 5 days. They occur every 4 weeks. She has cramping with sharp pain starting 1 week prior to flow. She treats with heat and ibuprofen dual action with minor relief. Other sx include urgency and chronic constipation for which she has been treated in the past by a GI Review of Systems Gastrointestinal: Positive for abdominal pain and constipation. Genitourinary: Positive for dyspareunia. All other systems reviewed and are negative. Objective Physical Exam Vitals reviewed. Constitutional: General: She is not in acute distress. Appearance: Normal appearance. She is normal weight. She is not ill-appearing, toxic-appearing or diaphoretic. HENT: Head: Normocephalic and atraumatic. Cardiovascular: Rate and Rhythm: Normal rate and regular rhythm. Pulmonary: Effort: Pulmonary effort is normal. No respiratory distress. Breath sounds: Normal breath sounds. No wheezing or rales. Abdominal: General: Bowel sounds are normal. There is no distension. Palpations: Abdomen is soft. Tenderness: There is no abdominal tenderness. There is no guarding or rebound. Genitourinary: General: Normal vulva. Vagina: No vaginal discharge. Comments: Uterus small, retroverted, non tender, no rebound or guarding. The adnexa are not tender Musculoskeletal: Cervical back: Normal range of motion and neck supple. Neurological: General: No focal deficit present. Mental Status: She is alert and oriented to person, place, and time. Mental status is at baseline. Cranial Nerves: No cranial nerve deficit. Sensory: No sensory deficit. Motor: No weakness. Coordination: Coordination normal. Gait: Gait normal. Deep Tendon Reflexes: Reflexes normal. Psychiatric: Mood and Affect: Mood normal. Behavior: Behavior normal. Thought Content: Thought content normal. Judgment: Judgment normal. Assessment/Plan Diagnoses and all orders for this visit: Pelvic pain - US pelvis transvaginal; Future Dyspareunia in female - US pelvis transvaginal; Future Chronic idiopathic constipation - simethicone (Mylicon) 80 MG tablet; Take 1 tablet (80 mg) by mouth 4 times daily (before meals and nightly). Follow up after US. Spoke to pt regarding symptoms. They appear to be more GI related than PRODUCTION MAINTENANCE MECHANIC at this time. If US is negative , pt encouraged to follow up with GI [facility] Progress Note ?A mica parts sprayer was offered to be present during her exam. The patient: declined. [facility] 36on 12-14-2024 36 S: Patient spoke wit h [facility] nurse regarding pelvic pain B: Onset of symptoms/concern 2 years A: Patient had an 2 years ago, patient has felt the pain constant, worsens 1 week prior to her menses, feels it is ovarian pain, current pain 4/10. Heat made pain worse, tried OTC meds without relief. Patient has nausea daily, intermittent dizzy, life long constipation. Patient denies . R: Patient has an upcoming TECHNOLOGY PROJECT MANAGER appointment on 01/23/[address] Nicolás Garza,patient states her insurance limited her to two providers, patient is on a waitlist. Nurse instructed patient to go to the ED if her symptoms get worse, has had symptoms 2 years. Patient understands home care advice. Patient instructed to call back with new or worsening symptoms. Reason for Disposition Constant pelvic pain lasting > 2 hours Protocols used: Pelvic Pain - ADULT-[place] [facility] CNOVon 08-28-2021 CNOV Office Visit (UCWSTR ) FREDERICK TEE ([id number]) 1995 F Date Time Provider Department 08/28/21 12:30 PM JONG MORIN WS During your visit today, we recorded the following information about you: Temperature Pulse Respiration Blood pressure 98.1 degrees 86/minute 18/minute 118/66 Weight Last Period 71.1 kg 07/22/21 Jong Morin PA-C 08/28/2021 2:09 PM Signed This note was created using Cross Current[employer]. Subjective Frederick Tee is a 25 year old female. HPI Patient presents with feeling like her lungs were burning over the past 2 days. She states she was at her grandparents house and she thinks the house next door may be a meth house. She states that it was smells around her grandparents house. She thinks she may have breathed in some fumes a few days ago and that is what caused the burning in her chest. She denies cough. She has been mildly nauseated. No vomiting. No lightheadedness or dizziness. No shortness of breath. She went to make sure she did not have pneumonia so she came in for evaluation. No OTC meds used. Denies significant past medical history. She has had a sore throat. No congestion or postnasal drip. She does have a history of asthma. She has not been wheezing. Denies any recent travel. No recent surgeries. No leg pain or swelling. She is not on any control. Denies history of PE or DVT. No history of coagulopathy. Review of Systems HENT: Positive for sore throat. Negative for ear pain, postnasal drip, rhinorrhea, sinus pressure and sinus pain. Respiratory: Negative. Cardiovascular: Positive for chest pain. Negative for palpitations and leg swelling. Gastrointestinal: Positive for nausea. Negative for abdominal pain, blood in stool, constipation, diarrhea and vomiting. Genitourinary: Negative. Musculoskeletal: Negative. Skin: Negative. All other systems reviewed and are negative. PAST MEDICAL HISTORY Diagnosis Date - Asthma, intermittent - Constipation - History of depression - Internal hemorrhoids - Irregular periods Current Outpatient Medications Medication Sig Dispense Refill - polyethylene glycol 3350 (MIRALAX) 17 gram/dose powder Take 17 g by mouth twice daily. 850 g 3 - predniSONE (DELTASONE) 20 mg tablet Take 2 tablets by mouth once daily for 5 days. 10 tablet 0 - bisacodyl EC (DULCOLAX, BISACODYL,) 5 mg EC tablet Take two (2) each time, as explained on the instruction sheet provided. (Patient not taking: Reported on 04/20/2021 ) 4 tablet 0 No current facility-administered medications for this visit. PAST SURGICAL HISTORY Procedure Laterality Date - COLONOSCOPY GEN ANES 10/02/2020 - EGD 10/02/2020 - PAST SURGICAL HISTORY OF extraction of wisdom teeth under local FAMILY HISTORY Problem Relation Age of Onset - other (liver cancer) Mother - Breast Cancer Maternal Grandmother - Skin Cancer Maternal Grandfather - Cancer Paternal Grandfather Social History Tobacco Use - Smoking status: Never Smoker - Smokeless tobacco: Never Used Substance Use Topics - Alcohol use: No - Drug use: No Objective BP 118/66 Pulse 86 Temp 36.7 ?C (98.1 ?F) Resp 18 Wt 71.1 kg (156 lb 12.8 oz) LMP 07/22/2021 SpO2 99% BMI 26.91 kg/m? Physical Exam Vitals reviewed. Constitutional: Appearance: Normal appearance. HENT: Head: Normocephalic and atraumatic. Right Ear: Tympanic membrane, ear canal and external ear normal. Left Ear: Tympanic membrane, ear canal and external ear normal. Nose: Nose normal. Mouth/Throat: Mouth: Mucous membranes are moist. Pharynx: Oropharynx is clear. Cardiovascular: Rate and Rhythm: Normal rate and regular rhythm. Heart sounds: Normal heart sounds. Pulmonary: Effort: Pulmonary effort is normal. Breath sounds: Normal breath sounds. Skin: General: Skin is warm and dry. Neurological: General: No focal deficit present. Mental Status: She is alert and oriented to person, place, and time. Assessment and Plan ASSESSMENT/PLAN: 1. Pleurisy - ICD9: 511.0, ICD10: R09.1 Chest x-ray negative. Feel she does have pleurisy. PERC rule is negative. I did give her a prescription for prednisone. Discussed follow-up with PCP. Patient agreeable. Red flags for er care discussed. - XR CHEST 2V FRONTAL/LAT Jong Morin PA-C Referring Provider: SELF [200] Allergies As of Date: 08/28/2021 Noted Allergy Reaction LINZESS (LINACLOTIDE) 09/16/2020 14 - Other: See Comments Comments: Dizziness Date Reviewed: 04/20/2021 Reviewed by: Pastora Quiroz - Fully Assessed Reason for Visit: Nausea [70] Cmt: Pt denied vomiting, sore throat pain rated 2 Chest Pain [21] Cmt: intermittent x2 days Primary Visit Diagnosis:Pleurisy [R09.1] Order(s):XR CHEST 2V FRONTAL/LAT [[id number]] Order #: [id number] FUTURE predniSONE (DELTASONE) 20 mg tabletTake 2 tablets by mouth once daily for 5 days.Disp: 10 (more content not included)... Normal [facility] XR CHEST 2V FRONTAL/LATon XR CHEST 2V FRONTAL/LAT * * *Final Report* * * DATE OF EXAM: Aug 28 2021 1:17PM WOX 5291 - XR CHEST 2V FRONTAL/LAT / PROCEDURE REASON: Chest pain, unspecified type * * * * Physician Interpretation * * * * EXAMINATION: CHEST RADIOGRAPH (2 VIEW FRONTAL and LATERAL) CLINICAL HISTORY: Chest pain, unspecified type MQ: XC2_6 EXAM DATE/TIME: 08/28/2021 1:17 PM COMPARISON: No relevant prior studies available. RESULT: Lines, tubes, and devices: None. Lungs and pleura: No consolidation. No lung mass. No pleural effusion. No pneumothorax. Cardiomediastinal silhouette: Normal cardiomediastinal silhouette. Bones and soft tissues: Unremarkable. IMPRESSION: No acute radiographic abnormality. Storage Garage Attendant: PSCB Transcribe Date/Time: Aug 28 2021 1:20P Dictated by : DEANDRE ROBERTSON MD This examination was interpreted and the report reviewed and electronically signed by: DEANDRE ROBERTSON MD on Aug 28 2021 1:20PM EST [id number] Normal [facility] XR Chest PA and Lateralon IMPRESSION: No acute radiographic abnormality. Storage Garage Attendant: PSCB Transcribe Date/Time: Aug 28 2021 1:20P Dictated by : DEANDRE ROBERTSON MD This examination was interpreted and the report reviewed and electronically signed by: DEANDRE ROBERTSON MD on Aug 28 2021 1:20PM EST DIVISION OF RADIOLOGY * * *Final Report* * * DATE OF EXAM: Aug 28 2021 1:17PM WOX 5291 - XR CHEST 2V FRONTAL/LAT / PROCEDURE REASON: Chest pain, unspecified type * * * * Physician Interpretation * * * * EXAMINATION: CHEST RADIOGRAPH (2 VIEW FRONTAL & LATERAL) CLINICAL HISTORY: Chest pain, unspecified type MQ: XC2_6 EXAM DATE/TIME: 08/28/2021 1:17 PM COMPARISON: No relevant prior studies available. RESULT: Lines, tubes, and devices: None. Lungs and pleura: No consolidation. No lung mass. No pleural effusion. No pneumothorax. Cardiomediastinal silhouette: Normal cardiomediastinal silhouette. Bones and soft tissues: Unremarkable. DIVISION OF RADIOLOGY Provider, [facility] - 08/28/2021 * * *Final Report* * * DATE OF EXAM: Aug 28 2021 1:17PM WOX 5291 - XR CHEST 2V FRONTAL/LAT / PROCEDURE REASON: Chest pain, unspecified type * * * * Physician Interpretation * * * * EXAMINATION: CHEST RADIOGRAPH (2 VIEW FRONTAL & LATERAL) CLINICAL HISTORY: Chest pain, unspecified type MQ: XC2_6 EXAM DATE/TIME: 08/28/2021 1:17 PM COMPARISON: No relevant prior studies available. RESULT: Lines, tubes, and devices: None. Lungs and pleura: No consolidation. No lung mass. No pleural effusion. No pneumothorax. Cardiomediastinal silhouette: Normal cardiomediastinal silhouette. Bones and soft tissues: Unremarkable. IMPRESSION IMPRESSION: No acute radiographic abnormality. Storage Garage Attendant: TAPAN Transcribe Date/Time: Aug 28 2021 1:20P Dictated by : DEANDRE ROBERTSON MD This examination was interpreted and the report reviewed and electronically signed by: DEANDRE ROBERTSON MD on Aug 28 2021 1:20PM EST [facility] Radiology Study observation (narrative) [facility] XR Chest PA and LateralOrder ed By: [facility] Provider on 08-28-2021 [facility] CBC W/Diff, Automatedon 02-0 Absolute Lymph 1.75 X10 3/uL Normal 0.83-4.51 [facility] Comment on above: Performed By: #### L 501.2450, L100.0100, L500.4050 #### [facility] [address] [place], [address] Absolute Neut 6.5 X10 3/uL Normal 2.0-7.7 [facility] Comment on above: Performed By: #### L 501.2450, L100.0100, L500.4050 #### [facility] [address] [place], [address] Basophils/100 WBC (Bld) 0.6 % Normal 0-1 [facility] Comment on above: Performed By: #### L 501.2450, L100.0100, L500.4050 #### [facility] [address] [place], [address] Eosinophils/100 WBC (Bld) 0.8 % Normal 0-5 [facility] Comment on above: Performed By: #### L 501.2450, L100.0100, L500.4050 #### [facility] [address] [place], [address] Erythrocyte distribution width (RBC) [Ratio] 12.3 % Normal 11.6-14.6 [facility] Comment on above: Performed By: #### L 501.2450, L100.0100, L500.4050 #### [facility] [address] [place], [address] Hematocrit (Bld) [Volume fraction] 40.8 % Normal 37-47 [facility] Comment on above: Performed By: #### L 501.2450, L100.0100, L500.4050 #### [facility] [address] [place], [address] Hemoglobin (Bld) [Mass/Vol] 14.1 g/dL Normal 12.0-15.0 [facility] Comment on above: Performed By: #### L 501.2450, L100.0100, L500.4050 #### [facility] [address] [place], [address] IG% 0.200 Normal 0.0-0.9 [facility] Comment on above: Result Comment: IG% - Immature Granulocytes (promyelocytes, myelocytes and metamyelocytes) > 1% indicates that a LEFT SHIFT is Present. Performed By: #### L 501.2450, L100.0100, L500.4050 #### [facility] [address] [place], [address] Lymphocytes/100 WBC (Bld) 19.4 % Normal 19-41 [facility] Comment on above: Performed By: #### L 501.2450, L100.0100, L500.4050 #### [facility] [address] [place], [address] MCH (RBC) [Entitic mass] 29.8 pg Normal 27.0-32.0 [facility] Comment on above: Performed By: #### L 501.2450, L100.0100, L500.4050 #### [facility] [address] [place], [address] MCHC (RBC) [Mass/Vol] 34.6 g/dL Normal 32-36 [facility] Comment on above: Performed By: #### L 501.2450, L100.0100, L500.4050 #### [facility] [address] [place], [address] MCV (RBC) [Entitic vol] 86.3 fL Normal 81-99 [facility] Comment on above: Performed By: #### L 501.2450, L100.0100, L500.4050 #### [facility] [address] [place], [address] Monocytes/100 WBC (Bld) 6.7 % Normal 0-10 [facility] Comment on above: Performed By: #### L 501.2450, L100.0100, L500.4050 #### [facility] [address] [place], [address] Neutrophils/100 WBC (Bld) 72.3 % High 47-70 [facility] Comment on above: Performed By: #### L 501.2450, L100.0100, L500.4050 #### [facility] [address] [place], [address] Nucleated RBC (Bld) [#/Vol] 0 10*3/uL Normal 0-5 [facility] Comment on above: Performed By: #### L 501.2450, L100.0100, L500.4050 #### [facility] [address] [place], [address] Platelet mean volume (Bld) [Entitic vol] 10.0 fL Normal 6.2-12.0 [facility] Comment on above: Performed By: #### L 501.2450, L100.0100, L500.4050 #### [facility] [address] [place], [address] Platelets (Bld) [#/Vol] 309 10*3/uL Normal 150-450 [facility] Comment on above: Performed By: #### L 501.2450, L100.0100, L500.4050 #### [facility] [address] [place], [address] RBC (Bld) [#/Vol] 4.73 10*6/uL Normal 4.2-5.4 [facility] Comment on above: Performed By: #### L 501.2450, L100.0100, L500.4050 #### [facility] [address] [place], [address] RDW SD 38.7 fl Normal 35.1-43.9 [facility] Comment on above: Performed By: #### L 501.2450, L100.0100, L500.4050 #### [facility] [address] [place], [address] WBC (Bld) [#/Vol] 9.0 10*3/uL Normal 4.4-11.0 [facility] Comment on above: Performed By: #### L 501.2450, L100.0100, L500.4050 #### [facility] [address] [place], [address] Comprehensive Metabolic Prof ilon 07-06-2021 Albumin [Mass/Vol] 3.9 g/dL Normal 3.2-5.0 [facility] Comment on above: Performed By: #### L 501.2450, L100.0100, L500.4050 #### [facility] [address] [place], [address] Albumin/Globulin [Mass ratio] 1.0 {ratio} Normal 0.9-2.4 [facility] Comment on above: Performed By: #### L 501.2450, L100.0100, L500.4050 #### [facility] [address] [place], [address] ALK P 108 U/L Normal 45-117 [facility] Comment on above: Performed By: #### L 501.2450, L100.0100, L500.4050 #### [facility] [address] [place], [address] ALT [Catalytic activity/Vol] 19 U/L Normal 13-56 [facility] Comment on above: Performed By: #### L 501.2450, L100.0100, L500.4050 #### [facility] [address] [place], [address] AST [Catalytic activity/Vol] 12 U/L Low 15-37 [facility] Comment on above: Performed By: #### L 501.2450, L100.0100, L500.4050 #### [facility] [address] [place], [address] Bilirubin [Mass/Vol] 1.30 mg/dL High 0.20-1.00 [facility] Comment on above: Result Comment: For patients on eltrombopag therapy, use of Dimension [place] TBIL is not recommended. Performed By: #### L 501.2450, L100.0100, L500.4050 #### [facility] [address] [place], [address] BUN/CRE 11.7 RATIO Normal 10-20 [facility] Comment on above: Performed By: #### L 501.2450, L100.0100, L500.4050 #### [facility] [address] [place], [address] CA,Total 9.2 mg/dL Normal 8.5-10.1 [facility] Comment on above: Performed By: #### L 501.2450, L100.0100, L500.4050 #### [facility] [address] [place], [address] Chloride [Moles/Vol] 103 mmol/L Normal 98-107 [facility] Comment on above: Performed By: #### L 501.2450, L100.0100, L500.4050 #### [facility] [address] [place], [address] CO2 [Moles/Vol] 28.0 mmol/L Normal 21.0-32.0 [facility] Comment on above: Performed By: #### L 501.2450, L100.0100, L500.4050 #### [facility] [address] [place], [address] Creatinine [Mass/Vol] 0.77 mg/dL Normal 0.55-1.02 [facility] Comment on above: Result Comment: The validity of the calculated GFR GFRAA in patients over 70 years has not been determined. Clinical correlation is essential. Performed By: #### L 501.2450, L100.0100, L500.4050 #### [facility] [address] [place], [address] ECRCL 97.28 ml/min Normal [facility] Comment on above: Performed By: #### L 501.2450, L100.0100, L500.4050 #### [facility] [address] [place], [address] EST GFR - AA 118 mL/min Normal >60 [facility] Comment on above: Result Comment: Afri can [place] GFR Calc Performed By: #### L 501.2450, L100.0100, L500.4050 #### [facility] [address] [place], [address] GAP 5 Normal 5-15 [facility] Comment on above: Performed By: #### L 501.2450, L100.0100, L500.4050 #### [facility] [address] [place], [address] GFR/1.73 sq M.predicted among non-blacks MDRD (S/P/Bld) [Vol rate/Area] 98 mL/min/{1.73_m2} Normal >60 [facility] Comment on above: Result Comment: Non- GFR Calc Performed By: #### L 501.2450, L100.0100, L500.4050 #### [facility] [address] [place], [address] Globulin (S) [Mass/Vol] 4.1 g/dL Normal 2.2-4.2 [facility] Comment on above: Performed By: #### L 501.2450, L100.0100, L500.4050 #### [facility] [address] [place], [address] Glucose [Mass/Vol] 104 mg/dL Normal 74-106 [facility] Comment on above: Result Comment: Fast ing Glucose result from 100 to 125 mg/dL suggests IMPAIRED HOMEOSTASIS per A.D.A. criteria. Performed By: #### L 501.2450, L100.0100, L500.4050 #### [facility] [address] [place], [address] Potassium [Moles/Vol] 3.4 mmol/L Low 3.5-5.1 [facility] Comment on above: Performed By: #### L 501.2450, L100.0100, L500.4050 #### [facility] [address] [place], [address] Sodium [Moles/Vol] 136 mmol/L Normal 136-145 [facility] Comment on above: Performed By: #### L 501.2450, L100.0100, L500.4050 #### [facility] [address] [place], [address] T PROT 8.0 g/dL Normal 6.4-8.2 [facility] Comment on above: Performed By: #### L 501.2450, L100.0100, L500.4050 #### [facility] [address] [place], [address] Urea nitrogen [Mass/Vol] 9 mg/dL Normal 7-18 [facility] Comment on above: Performed By: #### L 501.2450, L100.0100, L500.4050 #### [facility] [address] [place], [address] Emergency Department Summary on 07-06-2021 Emergency Department Summary [facility] Medical Records Department [address] [place] [address] Emergency Department Summary 07/06/21 MR#: [id number] Acct: [id number] Name: FREDERICK TEE Rep #: [id number] : 1995 25 From: Angi Trimble DO PCP: Care Physician,No Primary Status:REG ER Location: ED HPI HPI - GI History of Present Illness Chief Complaint: Diarrhea Informant: patient Abdominal Pain/Flank Pain Onset: Yesterday Narrative Narrative: Patient is a 25-year-old female presenting with nausea, vomiting, bloody diarrhea and abdominal pain. Patient states yesterday morning showed having diarrhea and then within an hour it turned to bright red blood per rectum as well as clots of blood. She had 2 visits of vomiting yesterday. She she feels weak and dizzy. She had lower abdominal pain that is worse in the right side and into her right back. She states her symptoms overall are improving today but she still having diarrhea with blood in her stool. She still nauseous. She has similar episode about a year ago where she went to [facility] and had a CT scan. She followed up with GI and had a colonoscopy. They told her it was fine recommend she follow-up with gynecology for possible pelvic floor dysfunction. Patient was told at that time she might have a ruptured ovarian cyst. She was put on daily MiraLAX by GI. She states she is continue to take her MiraLAX up until yesterday. She denies any family history of any bleeding disorders or inflammatory bowel disease. She notes her grandmother does have IBS. No other complaints at this time. PFSH PFS Medical History no medical history Home Medications cephalexin 500 mg PO BID 12/27/18 [History Last Taken Unknown] phenazopyridine 200 mg PO PRN PRN 12/27/18 [History Last Taken Unknown] Allergy/AdvReac Type Severity Reaction Status Date / Time No Known Allergies Allergy Verified 12/27/18 10:46 Surgical History no surgical history Social History Smoking Status: Never smoker ROS ROS ED Constitutional Constitutional ED: Denies chills or fever(s) ENT ENT ED: Denies sore throat Cardiovascular Cardiovascular: Denies chest pain or palpitations Respiratory/Chest Respiratory/Chest: Denies cough or dyspnea Gastrointestinal Gastrointestinal: Reports abdominal pain, diarrhea, nausea, vomiting and other Details: Bright red blood per rectum Genitourinary Genitourinary ED: Reports other Details: Last menstrual period 2 to 3 weeks ago ; Denies dysuria, hematuria or urinary frequency Musculoskeletal Musculoskeletal: Reports back pain; Denies arthralgias or myalgias Integumentary Denies rash Neurologic Neurologic: Reports weakness; Denies headache(s) Psychiatric Psychiatric: Denies anxiety or depression EXAM Physical Exam Const Vital Signs: 07/06/21 09:51 07/06/21 12:06 Temperature 97.1 F L Temperature Source Temporal Pulse Rate 88 Respiratory Rate 16 16 Blood Pressure 107/78 Blood Pressure Mean 87 Pulse Ox 98 Oxygen Delivery Method Room Air Positive well nourished and well developed General Appearance ED: well developed; Negative for pallor HEENT normocephalic and atraumatic Eyes PERRL and EOMs intact bilaterally General Eye ED: Negative for pale conjunctiva Neck supple Resp normal respiratory effort and clear to auscultation bilaterally Cardio regular rate, regular rhythm and no murmurs GI non-tender and non-distended Auscultation: normoactive bowel sounds Palpation: soft; Negative for guarding or rigid Back/Spine no CVA tenderness Neuro Sensorium / Orientation: alert, oriented to person, oriented to place and oriented to time Motor Exam: Negative for general weakness Psych mental status grossly normal Skin no wounds General Skin Exam: Negative for pallor Lesions: no lesions Rashes: no rashes MDM MDM MDM Narrative Medical decision making narrative: Patient is evaluated for vomiting and the diarrhea that started yesterday. She has had bright red blood per rectum associate with her diarrhea. Patient currently has normal vital signs and appears nontoxic. She has a benign abdominal exam. On rectal exam she does have brown stool. Do not appreciate any hemorrhoids or active bleeding. Her hemoglobin is normal at 14.1. She does not have a leukocytosis. No significant laboratory abnormalities. This time I do not think imaging is indicated. Patient will follow up with GI. She is encouraged to the follow-up with the GI doctor she saw last year or is given referral for a local GI, Dr. Friend. She is encouraged start taking an antacid given her associated nausea and vomiting. She states she can take that [id number]. She is not on any prescriptions for any nausea medicine. She is c (more content not included)... Normal [facility] Lipaseon 07-06-2021 Lipase [Catalytic activity/Vol] 40 U/L Low 73-393 [facility] Comment on above: Performed By: #### L 501.2450, L100.0100, L500.4050 #### [facility] [address] [place], [address] ,Urineon 07-06-2021 Beta HCG ( test) Ql (U) Negative Normal [facility] Comment on above: Order Comment: CLEAN CATCH Result Comment: Very dilute urine specimens, as indicated by a low specific gravity, may not contain outbound call center representative levels of hCG. If is still suspected, a first morning urine specimen should be collected 48 hours later and tested. Performed By: #### L 400.0001, L400.7600 #### [facility] [address] [place], [address] Urinalysis, Completeon 07-06 BACTERIA 0 SEEN Normal None Seen [facility] Comment on above: Order Comment: CLEAN CATCH Performed By: #### L 400.0001, L400.7600 #### [facility] [address] [place], [address] EPI,SQUAMOUS 0 SEEN Normal 5-10 [facility] Comment on above: Order Comment: CLEAN CATCH Performed By: #### L 400.0001, L400.7600 #### [facility] [address] [place], [address] Mucus Ql (Urine sed) 0 SEEN Normal [facility] Comment on above: Order Comment: CLEAN CATCH Performed By: #### L 400.0001, L400.7600 #### [facility] [address] [place], [address] RBC 0 SEEN Normal 0-5 [facility] Comment on above: Order Comment: CLEAN CATCH Performed By: #### L 400.0001, L400.7600 #### [facility] [address] [place], [address] WBC 0 SEEN Normal 0-5 [facility] Comment on above: Order Comment: CLEAN CATCH Performed By: #### L 400.0001, L400.7600 #### [facility] [address] [place], [address] CNOVon 04-20-2021 CNOV Office Visit (UCWSTR ) FREDERICK TEE ([id number]) 1995 F Date Time Provider Department 04/20/21 5:45 PM ALIYA GUEVARA [facility] During your visit today, we recorded the following information about you: Temperature Pulse Respiration Blood pressure 97.7 degrees 70/minute 16/minute 110/68 Weight 68 kg Aliya Guevara APRN.CNP 04/20/2021 8:04 PM Signed Subjective HPI HPI Frederick Tee is a 25 year old female who presents today for CC of right foot pain. This started 10 days ago. Has tried ice for relief. Symptoms are worsened by walking. Risk factors hurt foot few months ago, rolled while running and did not get checked out. Denies numbness/tingling of right foot. .Patient presents with: Pain (foot): right, started in feb x 10 days stopped then increased yesterday PAST MEDICAL HISTORY Diagnosis Date - Asthma, intermittent - Constipation - History of depression - Internal hemorrhoids - Irregular periods PAST SURGICAL HISTORY Procedure Laterality Date - COLONOSCOPY GEN ANES 10/02/2020 - EGD 10/02/2020 - PAST SURGICAL HISTORY OF extraction of wisdom teeth under local ALLERGIES Linzess [Linaclotide] MEDICATIONS polyethylene glycol 3350 (MIRALAX) 17 gram/dose powder Take 17 g by mouth twice daily. bisacodyl EC (DULCOLAX, BISACODYL,) 5 mg EC tablet Take two (2) each time, as explained on the instruction sheet provided. FAMILY HISTORY Problem Relation Age of Onset - other (liver cancer) Mother - Breast Cancer Maternal Grandmother - Skin Cancer Maternal Grandfather - Cancer Paternal Grandfather Social History Tobacco Use - Smoking status: Never Smoker - Smokeless tobacco: Never Used Substance Use Topics - Alcohol use: No - Drug use: No ROS Objective Blood pressure 110/68, pulse 70, temperature 36.5 ?C (97.7 ?F), resp. rate 16, weight 68 kg (150 lb), last menstrual period 08/30/2020, SpO2 99 %. Physical Exam Constitutional: General: She is not in acute distress. Appearance: She is not toxic-appearing or diaphoretic. HENT: Head: Normocephalic and atraumatic. Pulmonary: Effort: Pulmonary effort is normal. No accessory muscle usage or respiratory distress. Musculoskeletal: Feet: Neurological: Mental Status: She is alert and oriented to person, place, and time. ASSESSMENT/PLAN: 1. Foot pain, right - ICD9: 729.5, ICD10: M79.671 -no bony abnormality noted on xray -Rest, Ice, Compression, Elevation discussed -discussed use of ibuprofen -follow up with primary care if symptoms persist/worsen in 10-14 days - XR FOOT GENERAL 3V AP/LAT/OBL RIGHT IMPRESSION IMPRESSION: Unremarkable. ? Dictated by : LUIGI NAVA MD Agrees to plan Aliya Guevara APRN.DIGITAL STRATEGIST Referring Provider: SELF [200] Allergies As of Date: 04/20/2021 Noted Allergy Reaction LINZESS (LINACLOTIDE) 09/16/2020 14 - Other: See Comments Comments: Dizziness Date Reviewed: 04/20/2021 Reviewed by: Pastora Quiroz - Fully Assessed Reason for Visit: Pain (foot) [760] Cmt: right, started in feb x 10 days stopped then increased yesterday Primary Visit Diagnosis:Foot pain, right [M79.671] Order(s):XR FOOT GENERAL 3V AP/LAT/OBL RIGHT [3604526] Order #: [id number] #:[id number] Prescriptions as of 04/20/2021 - polyethylene glycol 3350 (MIRALAX) 17 gram/dose powder Take 17 g by mouth twice daily. - bisacodyl EC (DULCOLAX, BISACODYL,) 5 mg EC tablet Take two (2) each time, as explained on the instruction sheet provided. Problem List As Of Date 04/20/2021 Noted Resolved OAB (overactive bladder) [N32.81] 05/18/2018 High-tone pelvic floor dysfunction [N94.89] 05/18/2018 Muscle spasm [M62.838] 06/12/2018 Muscle weakness [M62.81] 07/12/2018 Encounter Status:Closed by ALIYA GUEVARA on 04/20/21 Normal [facility] XR FOOT 3V AP/LAT/OBL RTon 1 06-20-2020 XR FOOT 3V AP/LAT/OBL RT * * *Final Report* * * DATE OF EXAM: Apr 20 2021 6:30PM WOX 5337 - XR FOOT 3V AP/LAT/OBL RT / PROCEDURE REASON: Foot pain, right * * * * Physician Interpretation * * * * EXAMINATION: XR FOOT 3V AP/LAT/OBL RT HISTORY: Pt. states Rt mid to lateral foot pain for 1 month. No injury. Foot pain, right. TECHNIQUE: XR FOOT 3V AP/LAT/OBL RT Laterality: RIGHT Number of different views (projections): 3 M: XB_1 COMPARISON: There are no prior relevant examinations available for comparison within the [facility] Imaging Archives. RESULT: Standing frontal radiographs of the bilateral feet with oblique and lateral weightbearing views of the right foot show no acute osseous, articular or soft tissue process. Joint spaces are preserved. IMPRESSION: Unremarkable. Storage Garage Attendant: PSCB Transcribe Date/Time: Apr 20 2021 6:44P Dictated by : LUIGI NAVA MD This examination was interpreted and the report reviewed and electronically signed by: LUIGI NAVA MD on Apr 20 2021 6:46PM EST [id number] Normal [facility] XR Foot - right AP and Later al and obliqueon 04-20-2021 IMPRESSION: Unremarkable. Storage Garage Attendant: PSCB Transcribe Date/Time: Apr 20 2021 6:44P Dictated by : LUIGI NAVA MD This examination was interpreted and the report reviewed and electronically signed by: LUIGI NAVA MD on Apr 20 2021 6:46PM EST DIVISION OF RADIOLOGY * * *Final Report* * * DATE OF EXAM: Apr 20 2021 6:30PM WOX 5337 - XR FOOT 3V AP/LAT/OBL RT / PROCEDURE REASON: Foot pain, right * * * * Physician Interpretation * * * * EXAMINATION: XR FOOT 3V AP/LAT/OBL RT HISTORY: Pt. states Rt mid to lateral foot pain for 1 month. No injury. Foot pain, right. TECHNIQUE: XR FOOT 3V AP/LAT/OBL RT Laterality: RIGHT Number of different views (projections): 3 M: XB_1 COMPARISON: There are no prior relevant examinations available for comparison within the [facility] Imaging Archives. RESULT: Standing frontal radiographs of the bilateral feet with oblique and lateral weightbearing views of the right foot show no acute osseous, articular or soft tissue process. Joint spaces are preserved. DIVISION OF RADIOLOGY Provider, [facility]21 * * *Final Report* * * DATE OF EXAM: Apr 20 2021 6:30PM WOX 5337 - XR FOOT 3V AP/LAT/OBL RT / PROCEDURE REASON: Foot pain, right * * * * Physician Interpretation * * * * EXAMINATION: XR FOOT 3V AP/LAT/OBL RT HISTORY: Pt. states Rt mid to lateral foot pain for 1 month. No injury. Foot pain, right. TECHNIQUE: XR FOOT 3V AP/LAT/OBL RT Laterality: RIGHT Number of different views (projections): 3 M: XB_1 COMPARISON: There are no prior relevant examinations available for comparison within the [facility] Imaging Archives. RESULT: Standing frontal radiographs of the bilateral feet with oblique and lateral weightbearing views of the right foot show no acute osseous, articular or soft tissue process. Joint spaces are preserved. IMPRESSION IMPRESSION: Unremarkable. Storage Garage Attendant: TAPAN Transcribe Date/Time: Apr 20 2021 6:44P Dictated by : LUIGI NAVA MD This examination was interpreted and the report reviewed and electronically signed by: LUIGI NAVA MD on Apr 20 2021 6:46PM EST [facility] Radiology Study observation (narrative) [facility] XR Foot - right AP and Later al and obliqueOrdered By: Ccf Provider on 04-20-2021 [facility] CNTHERAPYon 01-08-2021 CNTHERAPY OT/PT/Speech Visit (SPTBR) FREDERICK TEE ([id number]) 1995 F Date Time Provider Department 01/08/21 6:00 PM JONG DA SILVA SPTBR Date Time Provider Department Center 01/08/2021 6:00 PM [id number], CARA SPTBR [facility] Reason for Visit: PT Discharge [752] Primary Visit Diagnosis:Muscle spasm [M62.838] Other Visit Diagnoses:Muscle weakness [M62.81] High-tone pelvic floor dysfunction [N94.89] Allergies As of Date: 01/08/2021 Noted Allergy Reaction LINZESS (LINACLOTIDE) 09/16/2020 14 - Other: See Comments Comments: Dizziness Date Reviewed: 10/21/2020 Reviewed by: Abdias Ng APRN.DIGITAL STRATEGIST - Fully Assessed Prescriptions as of 01/08/2021 - polyethylene glycol 3350 (MIRALAX) 17 gram/dose powder Take 17 g by mouth twice daily. - bisacodyl EC (DULCOLAX, BISACODYL,) 5 mg EC tablet Take two (2) each time, as explained on the instruction sheet provided. Progress Notes: Jong Da Silva, PT 01/08/2021 6:31 PM Signed Episode Visit Count: 14 Therapist That Will Oversee The Plan Of Care: Jeni Dee PT Start of Care Date: 06/12/18 Onset Date: 05/18/18 Plan of Care Certification Date: 11/24/20 Next Certification Due Date: 01/23/21 Patient Identified by Name and Date of : Yes REHABILITATION AND SPORTS THERAPY PHYSICAL THERAPY DISCONTINUANCE OF CARE PLAN OF CARE UPDATE: Assessment: Frederick Tee is discontinued from Physical Therapy services due to maximal benefit.. Patient was seen for 14 visits from Start of Care Date: 06/12/18 to 01/08/2021 and treatment included: Therapeutic exercise and Manual therapy. Goals for Episode of Care: updated 11/24/20, Updated on 12/25/2020, Updated on 01/08/2021 Incontinence: Patient to demonstrate independence with HEP-MET Patient to urinate every 2 hours-MET Increase strength of pelvic floor to to demonstrate a 10 sec hold 10x with full release-MET Patient demonstrates ability to perform diaphragmatic breathing / Relaxation-MET Patient demonstrates ability to correctly isolate pelvic floor muscles-MET Patient reports increased ability to fully empty bladder / bowels-NOT MET Patient displays proper technique for bearing down without use of accessory muscles-MET Patient displays improved muscle dynamics of pelvic floor including ability to lengthen muscles-MET Pelvic Pain: Patient reports painfree intercourse-NOT ABLE TO ASSESS Patient displays decreased muscle spasms in levator to allow for decreased pain levels-MET SUBJECTIVE: Patient Reason for Visit: Pt reports no changes in bowel function, thinking about increasing Miralax, advised to contact physician regarding this. Pt reports good compliance with HEP. Pt reports feeling comfortable continuing on own at home due to maximal benefit at PT. Pain: Pain Pain Level: 1 Pain Location: Abdomen Description: Dull Frequency: Continuous Post Treatment Pain Post Treatment Pain Level: No Change PROMIS Scales T-scores: mean of general population = 50. 5 points is clinically meaningfully difference Percentiles provide an indication of how the patient's score ranks in relation to the general population. Higher percentile rankings indicate better function/quality of life. 50th percentile is the average of the general population and indicates half of respondents had a worse score. T-scores: mean of general population = 50. 5 points is clinically meaningfully difference Percentiles provide an indication of how the patient's score ranks in relation to the general population. Higher percentile rankings indicate better function/quality of life. 50th percentile is the average of the general population and indicates half of respondents had a worse score. OBJECTIVE MEASURES WITH LEVEL OF FUNCTION: Pelvic Floor Difficulty evacuating / Excessive Straining: Sometimes Incomplete emptying: Yes Pelvic Floor Muscle Assessment Consent for pelvic assessment/testing and treatment: Patient was educated regarding pelvic floor physical therapy assessment/treatment which may include pelvic floor and girdle muscle assessment externally or internally (vaginal or rectal approach).;Patient verbalized consent for the above treatment approaches today. Patient understands they have control of the treatment and an opportunity to stop treatment at any time. Pelvic Floor Muscle Assessment: PERFECT;Muscle Dynamics Power: 3 Endurance: 10 Reps: 10 Contracton Pressure: Moderate squeeze, felt all the way around finger surface Duration of Contraction: >3 seconds Recruitment of pelvic floor muscles: Coordinated Range of Motion: Normal Ability to Lengthen pelvic floor: Yes Pelvic Floor Manual Assessment Lower abdominals: Bilateral (05/30) Suprapubic: Bilateral (05/30) Pelvic Floor Tenderness/Hyperactivi ty: Tested Rectally in Tested Rectally in : Sidelying (No tightness/te (more content not included)... Normal [facility] CNTHERAPYon 01-01-2021 CNTHERAPY OT/PT/Speech Visit (SPTBR) FREDERICK TEE ([id number]) 1995 F Date Time Provider Department 01/01/21 6:00 PM JONG DA SILVA SPTBR Date Time Provider Department Center 01/01/2021 6:00 PM [id number], CARA SPTBR [facility] Reason for Visit: Physical Therapy [503] Primary Visit Diagnosis:Muscle spasm [M62.838] Other Visit Diagnoses:Muscle weakness [M62.81] High-tone pelvic floor dysfunction [N94.89] Allergies As of Date: 01/01/2021 Noted Allergy Reaction LINZESS (LINACLOTIDE) 09/16/2020 14 - Other: See Comments Comments: Dizziness Date Reviewed: 10/21/2020 Reviewed by: Abdias Ng APRN.DIGITAL STRATEGIST - Fully Assessed Prescriptions as of 01/01/2021 - polyethylene glycol 3350 (MIRALAX) 17 gram/dose powder Take 17 g by mouth twice daily. - bisacodyl EC (DULCOLAX, BISACODYL,) 5 mg EC tablet Take two (2) each time, as explained on the instruction sheet provided. Progress Notes: Jong Da Silva, PT 01/01/2021 6:38 PM Signed Episode Visit Count: 13 Therapist That Will Oversee The Plan Of Care: Jeni Dee PT Start of Care Date: 06/12/18 Onset Date: 05/18/18 Plan of Care Certification Date: 11/24/20 Next Certification Due Date: 01/23/21 Patient Identified by Name and Date of : Yes REHABILITATION AND SPORTS THERAPY PHYSICAL THERAPY TREATMENT NOTE ASSESSMENT: Frederick Tee demonstrated difficulty with fully emptying bowels, tolerated manual therapy well with slightly improved pain post-session. The patient will continue to benefit from ongoing skilled physical therapy to decrease soft tissue and muscle restrictions, improve bowel function, and improve overall functional activities. PLAN FOR NEXT VISIT: continue manual work SUBJECTIVE: Patient Reason for Visit: Pt reports constant feeling of indegestion pain, notes that she has increased sugar intake since previous visit, wonders if this might have an effect. Pt reports being able to have a bowel movement with no straining but still feels like she can't fully empty. Pt reports an occasional stinging pain near rectum while having a bowel movement. Pt reports good compliance with HEP. Pain: Pain Pain Level: 2 Pain Location: Abdomen Description: Dull Frequency: Continuous Post Treatment Pain Post Treatment Pain Level: (feels a little better) OBJECTIVE MEASURES WITH LEVEL OF FUNCTION: Pelvic Floor Difficulty evacuating / Excessive Straining: No Incomplete emptying: Yes Pelvic Floor Muscle Assessment Consent for pelvic assessment/testing and treatment: Patient was educated regarding pelvic floor physical therapy assessment/treatment which may include pelvic floor and girdle muscle assessment externally or internally (vaginal or rectal approach).;Patient verbalized consent for the above treatment approaches today. Patient understands they have control of the treatment and an opportunity to stop treatment at any time. Ability to Lengthen pelvic floor: Yes Pelvic Floor Manual Assessment Lower abdominals: Bilateral (1/1, L>R) Adductor: Bilateral (1/2, L>R) Pelvic Floor Tenderness/Hyperactivi ty: Tested Vaginally in Deep transverse perineal: Left (0/1) Iliococcygeus: Left (0/1) Pubococcygeus: Left (0/1) Tissue Restriction/Tenderness Scale: 1= mild, 2= moderate, 3= severe TREATMENT: Manual Therapy: 1: Gentle stretching to B pelvic floor 2: MFR to B lower abdominals, supine 3: MFR to B adductors, supine 4: Reviewed importance of relaxation techniques, lengthening muscles while having a bowel movement Skilled Intervention: Manual skills to improve joint mobility, ROM, and decrease pain. Utilized anatomy knowledge of the therapist, and assessment of patient's response to intervention. Billing Manual TherapyTreatment Minutes: 39 Total Treatment Time Minutes (timed and untimed codes) : 39 Jong Da Silva PT Normal [facility] CNTHERAPYon 12-25-2020 CNTHERAPY OT/PT/Speech Visit (SPTBR) FREDERICK TEE ([id number]) 1995 F Date Time Provider Department 12/25/20 6:00 PM JONG DA SILVA Date Time Provider Department [place] 12/25/2020 6:00 PM [id number], CARA [facility]ER [facility] Reason for Visit: PT Progress Note [1596] Primary Visit Diagnosis:Muscle spasm [M62.838] Other Visit Diagnoses:Muscle weakness [M62.81] High-tone pelvic floor dysfunction [N94.89] Allergies As of Date: 12/25/2020 Noted Allergy Reaction LINZESS (LINACLOTIDE) 09/16/2020 14 - Other: See Comments Comments: Dizziness Date Reviewed: 10/21/2020 Reviewed by: Abdias Ng APRN.DIGITAL STRATEGIST - Fully Assessed Prescriptions as of 12/25/2020 - polyethylene glycol 3350 (MIRALAX) 17 gram/dose powder Take 17 g by mouth twice daily. - bisacodyl EC (DULCOLAX, BISACODYL,) 5 mg EC tablet Take two (2) each time, as explained on the instruction sheet provided. Progress Notes: Jong Da Silva, PT 12/25/2020 6:41 PM Signed Episode Visit Count: 12 Therapist That Will Oversee The Plan Of Care: Jeni Dee PT Start of Care Date: 06/12/18 Onset Date: 05/18/18 Plan of Care Certification Date: 11/24/20 Next Certification Due Date: 01/23/21 Patient Identified by Name and Date of : Yes REHABILITATION AND SPORTS THERAPY PHYSICAL THERAPY PROGRESS REPORT PLAN OF CARE UPDATE: Assessment: Frederick Tee exhibits improvements in bowel frequency and straining. She continues to be limited with fully emptying bowels, pelvic pain. She is progressing as expected towards her therapy goals as demonstrated by: documented subjective information on progress. She will benefit from continued skilled therapy requiring therapeutic exercise and manual therapy in order to further improve overall functional activities. Functional gains: Improved bowel frequency Improved straining with having a bowel movement Goals for Episode of Care: updated 11/24/20, Updated on 12/25/2020 Incontinence: Patient to demonstrate independence with HEP-MET Patient to urinate every 2 hours-MET Increase strength of pelvic floor to to demonstrate a 10 sec hold 10x with full release-NOT ASSESSED Patient demonstrates ability to perform diaphragmatic breathing / Relaxation-MET Patient demonstrates ability to correctly isolate pelvic floor muscles-NOT ASSESSED Patient reports increased ability to fully empty bladder / bowels-NOT MET Patient displays proper technique for bearing down without use of accessory muscles-NOT ASSESSED Patient displays improved muscle dynamics of pelvic floor including ability to lengthen muscles-NOT ASSESSED Pelvic Pain: Patient reports painfree intercourse-NOT ABLE TO ASSESS Patient displays decreased muscle spasms in levator to allow for decreased pain levels-NOT ASSESSED Planned Interventions, Frequency, and Duration: 1x/week, 4 weeks (reassess at 4 weeks and progress as indicated) Total Number of Visits Planned: 4 Patient to be seen for Therapeutic exercise (96607);Neuromuscular re-education (77479);Manual therapy (26801);Therapeutic activities (26083);Patient/Family /Caregiver Education PLAN FOR NEXT VISIT: internal/external manual work SUBJECTIVE: Patient Reason for Visit: Pt reports improvement in bowel frequency, about 2x/day. Pt reports significant improvement in straining while having a bowel movement, able to breath through it rather than strain, still some trouble with feeling like she's fully emptying bowels. Pt denies having sex since previous session. Pain: Pain Pain Level: 0 Pain Location: (pelvic floor) Post Treatment Pain Post Treatment Pain Level: No Change PROMIS Scales T-scores: mean of general population = 50. 5 points is clinically meaningfully difference Percentiles provide an indication of how the patient's score ranks in relation to the general population. Higher percentile rankings indicate better function/quality of life. 50th percentile is the average of the general population and indicates half of respondents had a worse score. T-scores: mean of general population = 50. 5 points is clinically meaningfully difference Percentiles provide an indication of how the patient's score ranks in relation to the general population. Higher percentile rankings indicate better function/quality of life. 50th percentile is the average of the general population and indicates half of respondents had a worse score. OBJECTIVE MEASURES WITH LEVEL OF FUNCTION: Pelvic Floor Difficulty evacuating / Excessive Straining: No Incomplete emptying: Yes Bowel Movement Frequency: 2x/day Pelvic Floor Muscle Assessment Consent for pelvic assessment/testing and treatment: (Internal assessment deferred due to pt on cycle.) Pelvic Floor Manual Assessment Lower abdominals: Bilateral (1/2, R>L) Adductor: Bilateral (1/2, L>R) Tissue Restriction/ (more content not included)... Normal [facility] CNTHERAPYon 12-05-2020 CNTHERAPY OT/PT/Speech Visit (PTWS) FREDERICK TEE ([id number]) 1995 F Date Time Provider Department 12/05/20 1:15 PM JONG DA SILVA Date Time Provider Department Center 12/05/2020 1:15 PM [id number] DA SILVA Yessi Ovidio Reason for Visit: Physical Therapy [503] Primary Visit Diagnosis:Muscle spasm [M62.838] Other Visit Diagnoses:Muscle weakness [M62.81] High-tone pelvic floor dysfunction [N94.89] Allergies As of Date: 12/05/2020 Noted Allergy Reaction LINZESS (LINACLOTIDE) 09/16/2020 14 - Other: See Comments Comments: Dizziness Date Reviewed: 10/21/2020 Reviewed by: Abdias Ng APRN.DIGITAL STRATEGIST - Fully Assessed Prescriptions as of 12/05/2020 - polyethylene glycol 3350 (MIRALAX) 17 gram/dose powder Take 17 g by mouth twice daily. - bisacodyl EC (DULCOLAX, BISACODYL,) 5 mg EC tablet Take two (2) each time, as explained on the instruction sheet provided. Progress Notes: Jong Da Silva, PT 12/05/2020 1:54 PM Signed Episode Visit Count: 11 Therapist That Will Oversee The Plan Of Care: Jeni Dee PT Start of Care Date: 06/12/18 Onset Date: 05/18/18 Plan of Care Certification Date: 11/24/20 Next Certification Due Date: 01/23/21 Patient Identified by Name and Date of : Yes REHABILITATION AND SPORTS THERAPY PHYSICAL THERAPY TREATMENT NOTE ASSESSMENT: Frederick Tee demonstrated difficulty with continued bowel dysfunction per patient report, able to lengthen pelvic floor muscles with minimal cues. Patient tolerated manual therapy well. The patient will continue to benefit from ongoing skilled physical therapy to decrease soft tissue and muscle restrictions, improve bowel function, and improve overall functional activities. PLAN FOR NEXT VISIT: assess PF strength, continue manual work SUBJECTIVE: Patient Reason for Visit: Pt reports continued difficulty with bowel function. Pt reports feeling like nothing comes out. Pt reports difficulty relaxing, increased stress due to recent breakup. Pain: Pain Pain Level: 0 Post Treatment Pain Post Treatment Pain Level: No Change OBJECTIVE MEASURES WITH LEVEL OF FUNCTION: Pelvic Floor Difficulty evacuating / Excessive Straining: Yes Bowel Movement Frequency: 1x/day Bowel Aides / Supplements: Miralax 1x/day Pelvic Floor Muscle Assessment Consent for pelvic assessment/testing and treatment: Patient was educated regarding pelvic floor physical therapy assessment/treatment which may include pelvic floor and girdle muscle assessment externally or internally (vaginal or rectal approach).;Patient verbalized consent for the above treatment approaches today. Patient understands they have control of the treatment and an opportunity to stop treatment at any time. Pelvic Floor Muscle Assessment: Muscle Dynamics Ability to Lengthen pelvic floor: Yes Pelvic Floor Manual Assessment Upper abdominals: Bilateral (2/2, R>L) Lower abdominals: Bilateral (2/2, R>L) Pelvic Floor Tenderness/Hyperactivi ty: Tested Rectally in Tested Rectally in : Sidelying Obturator internus: Left (2/2) Puborectalis: Left (2/2) Tissue Restriction/Tenderness Scale: 1= mild, 2= moderate, 3= severe TREATMENT: Manual Therapy: 1: PF mm assessment, rectally 2: Gentle stretching to B pelvic floor, rectally, sidelying 3: PF lengthening, 2x10 4: MFR to B upper and lower abdominals 5: Reviewed toileting techniques to improve bowel function 6: Reviewed impact of stress of bowel function, importance of relaxation Skilled Intervention: Manual skills to improve joint mobility, ROM, and decrease pain. Utilized anatomy knowledge of the therapist, and assessment of patient's response to intervention. Billing: [facility]: Manual Therapy ([id number]): 1:1 time: 40 minutes (3 units: 38-52 mins) Total time / Length of visit: 40 minutes Jong Da Silva PT Normal [facility] CNTHERAPYon 11-24-2020 CNTHERAPY OT/PT/Speech Visit (SPTBR) FREDERICK TEE ([id number]) 1995 F Date Time Provider Department 11/24/20 7:45 AM JENI DEE SPTBR Date Time Provider Department Center 11/24/2020 7:45 AM [id number] DEE SPTBR [facility] Reason for Visit: PT Re-eval [891] Primary Visit Diagnosis:Muscle spasm [M62.838] Other Visit Diagnoses:High-tone pelvic floor dysfunction [N94.89] Constipation due to outlet obstruction [K59.02] Muscle weakness [M62.81] Allergies As of Date: 11/24/2020 Noted Allergy Reaction LINZESS (LINACLOTIDE) 09/16/2020 14 - Other: See Comments Comments: Dizziness Date Reviewed: 10/21/2020 Reviewed by: Abdias Ng APRN.DIGITAL STRATEGIST - Fully Assessed Prescriptions as of 11/24/2020 Sig: POLYETHYLENE GLYCOL 3350 17 G* Take 17 g by mouth twice nigel* BISACODYL 5 MG TABLET,DELAYED* Take two (2) each time, as ex* Progress Notes: Jeni Dee, PT 11/24/2020 1:32 PM Signed Episode Visit Count: 10 Therapist That Will Oversee The Plan Of Care: Jeni Dee PT Start of Care Date: 06/12/18 Onset Date: 05/18/18 Plan of Care Certification Date: 11/24/20 Next Certification Due Date: 01/23/21 Patient Identified by Name and Date of : Yes REHABILITATION AND SPORTS THERAPY PHYSICAL THERAPY RE-EVALUATION PLAN OF CARE UPDATE: Assessment: Frederick Tee exhibits difficulty with constipation . She continues to be limited with altered sexual function and compromised bowel function. She is progressing as expected towards her therapy goalssince not being seen over the last year. . She will benefit from continued skilled therapy requiring manual work and gentle therapeutic ex in order to further improve pelvic floor muscle dynamics/lengthening in order to improve ability to empty bowels. Functional gains: Decreased frequency of pain Goals for Episode of Care: updated 11/24/20 Incontinence: Patient to demonstrate independence with HEP Met Patient to urinate every 2 hours Met Increase strength of pelvic floor to to demonstrate a 10 sec hold 10x with full release NT Patient demonstrates ability to perform diaphragmatic breathing / relaxation Met Patient demonstrates ability to correctly isolate pelvic floor muscles NT Patient reports increased ability to fully empty bladder / bowels (not bowels) Partially Met Patient displays proper technique for bearing down without use of accessory muscles NT Patient displays improved muscle dynamics of pelvic floor including ability to lengthen muscles ongoing Pelvic Pain: Patient reports painfree intercourse Mostly Met Patient displays decreased muscle spasms in levator to allow for decreased pain levels Partially Met Patient Goals: improve ability empty the bowels. Planned Interventions, Frequency, and Duration: 1x/week, 8 weeks Total Number of Visits Planned: 8 Patient to be seen for Therapeutic exercise (17864);Neuromuscular re-education (01638);Manual therapy (42958);Therapeutic activities (51057);Patient/Family /Caregiver Education PLAN FOR NEXT VISIT: pelvic floor assessment rectally, assess external connective tissue Prognosis: Good Good due to: current objective clinical presentation SUBJECTIVE: Patient Reason for Visit: Pt returns to PT for continued issues with constipation and high tone pelvic floor. Pt states she has intermittent dyspareunia and thinks it is related to cystic ovaries. Pt had anal manometry, increased tone but able to expel balloon. . Patient Goals: improve ability empty the bowels. Functional Limitations: compromised bowel function Prior Level of Function: Independent without limitations Intake Information: Prescription present Previous Treatment: Pelvic Floor Physical Therapy? Pain: Pain Pain Level: 0 Post Treatment Pain Post Treatment Pain Level: No Change PROMIS Scales T-scores: mean of general population = 50. 5 points is clinically meaningfully difference Percentiles provide an indication of how the patient's score ranks in relation to the general population. Higher percentile rankings indicate better function/quality of life. 50th percentile is the average of the general population and indicates half of respondents had a worse score. T-scores: mean of general population = 50. 5 points is clinically meaningfully difference Percentiles provide an indication of how the patient's score ranks in relation to the general population. Higher percentile rankings indicate better function/quality of life. 50th percentile is the average of the general population and indicates half of respondents had a worse score. OBJECTIVE MEASURES WITH LEVEL OF FUNCTION: Pelvic Floor Menstruation: pretty regular, most recent a week late Control Method: none Pregnancies: 0 Pain with penetration: Deep;Pain after intercourse History of low back pain: Yes Urina (more content not included)... Normal [facility] CNOVon 10-21-2020 CNOV Office Visit ([facility] ) FREDERICK TEE ([id number]) 1995 F Date Time Provider Department 10/21/20 3:30 PM MANOMETRY [facility] During your visit today, we recorded the following information about you: Abdias Ng APRN.DIGITAL STRATEGIST 10/21/2020 4:02 PM Signed PELVIC FLOOR COLON AND RECTAL SURGERY Reason for visit: Review anorectal manometry and EMG results History of Present Illness: Frederick Tee is a 24 year old FEMALE who was seen at the request of Dr. Cobb for anorectal manometry testing, rectal sensation testing and EMG recruitment. Ms. Tee was referred for testing due to symptoms of chronic constipation and pelvic pain Her symptoms of constipation have been present for most of her life. She was sent to PFPT, biofeedback, by her chargeback specialist and completed it 2 years ago. She noted some improvement in symptoms. But continues to need miralax and has straining with BM and has intermittent pelvic pain Duration of symptoms: since 3 years old Do you have anorectal pain: No. Usually has burning stinging Stool frequency: 1/day Stool type: Type 6: Fluffy pieces with ragged edges, a mushy stool Type 7: Watery, no solid pieces (entirely liquid) Stool straining: no straining Frequency of straining: rarely was prior to starting miralax Does anything make your symptoms better? 1 cap miralax BID helping, but causes diarrhea, Has tried linzess in the past- made her dizzy Prior hysterectomy: No US and HIDA scan unremarkable CT scan: 09/17/20 mild enteritis, no acute process Urinary Symptoms: Urinary incontinence: none Urinary frequency: Yes, pelvic pain Obstetric history: None Previous Testing Results include: Colonoscopy: Yes Date:10/02/20 - random biopsies: No - polyps: No Manometry: today Defecography: No PAST MEDICAL HISTORY Diagnosis Date - Asthma, intermittent - Constipation - History of depression - Internal hemorrhoids - Irregular periods PAST SURGICAL HISTORY Procedure Laterality Date - COLONOSCOPY GEN ANES 10/02/2020 - EGD 10/02/2020 - PAST SURGICAL HISTORY OF extraction of wisdom teeth under local Current Outpatient Medications Medication Sig Dispense Refill - polyethylene glycol 3350 (MIRALAX) 17 gram/dose powder Take 17 g by mouth twice daily. 850 g 3 - bisacodyl EC (DULCOLAX, BISACODYL,) 5 mg EC tablet Take two (2) each time, as explained on the instruction sheet provided. 4 tablet 0 No current facility-administered medications for this visit. ALLERGIES Allergen Reactions - Linzess [Linaclotid* Other: See Comments Dizziness FAMILY HISTORY Problem Relation Age of Onset - other (liver cancer) Mother - Breast Cancer Maternal Grandmother - Skin Cancer Maternal Grandfather - Cancer Paternal Grandfather Social History Tobacco Use - Smoking status: Never Smoker - Smokeless tobacco: Never Used Substance Use Topics - Alcohol use: No - Drug use: No Physical Exam: There were no vitals filed for this visit. General Appearance: Well appearing, alert, in no acute distress, well-hydrated, well nourished. Anorectal: Perianal skin is intact. No erythema, induration or excoriation. No fissure, fistula or external hemorrhoids. Digital Rectal Exam: Anus: closed Resting tone: HIGH Squeeze tone: HIGH Valsalva: pelvic floor relaxation is Normal. Puborectalis: tender in Right anterior and Right posterior to palpation on valsalva Rectocele: Absent Full thickness rectal prolapse: No Assessment Anorectal Physiology tests reviewed at today's visit: Reason for testing: constipation, pelvic pain Ileoanal pouch: No Anorectal Manometry Testing: Strength: Anorectal manometry was performed. ? Average Pressure Interpretation Rest: 59 mmHg This is above normal range. Normal range is 35-50 mmHg. Squeeze: 96 mmHg This is within normal range. Normal range is 75 - 100 mmHg. Resting and squeeze pressures well above normal may indicate high pelvic floor tension. There is minimal incremental change between resting and squeeze pressures which can indicate marginal pelvic floor movement with squeeze. Sensory: Sensation Volume First sensation : 47 mL / Normal Range: 40-80 mL First urge to defecate: 76 mL / Normal Range: 80-120 mL Maximum tolerable volume: 138 mL / Normal Range: 120-180 mL Recto-anal inhibitory reflex: yes Balloon expulsion: yes This exhibit normal rectal sensation with at least 2/3 sensory tests. ? A recto-anal inhibitory reflex (RAIR) was present. This is a normal reflex. EMG Recruitment: EMG recruitment was performed. ?The patient shows a normal increase in activity with squeeze, and a appropriate decrease in activity with valsalva. ?This indicates normal pelvic floor movement, which can be indicative of normal pelvic floor coordination. Assessment and Plan: Frederick Tee is a 24 year old FEMALE who was r (more content not included)... Normal [facility] HISTORY PHYSICALon HISTORY PHYSICAL HNO ID: [id number] Author: Abdias Ng APRN.DIGITAL STRATEGIST Service: ? Author Type: Nurse Practitioner Type: HANDP Filed: 10/21/2020 4:02 PM Note Text: PELVIC FLOOR COLON AND RECTAL SURGERY Reason for visit: Review anorectal manometry and EMG results History of Present Illness: Frederick Tee is a 24 year old FEMALE who was seen at the request of Dr. Cobb for anorectal manometry testing, rectal sensation testing and EMG recruitment. Ms. Tee was referred for testing due to symptoms of chronic constipation and pelvic pain Her symptoms of constipation have been present for most of her life. She was sent to PFPT, biofeedback, by her chargeback specialist and completed it 2 years ago. She noted some improvement in symptoms. But continues to need miralax and has straining with BM and has intermittent pelvic pain Duration of symptoms: since 3 years old Do you have anorectal pain: No. Usually has burning stinging Stool frequency: 1/day Stool type: Type 6: Fluffy pieces with ragged edges, a mushy stool Type 7: Watery, no solid pieces (entirely liquid) Stool straining: no straining Frequency of straining: rarely was prior to starting miralax Does anything make your symptoms better? 1 cap miralax BID helping, but causes diarrhea, Has tried linzess in the past- made her dizzy Prior hysterectomy: No US and HIDA scan unremarkable CT scan: 09/17/20 mild enteritis, no acute process Urinary Symptoms: Urinary incontinence: none Urinary frequency: Yes, pelvic pain Obstetric history: None Previous Testing Results include: Colonoscopy: Yes Date:10/02/20 - random biopsies: No - polyps: No Manometry: today Defecography: No PAST MEDICAL HISTORY Diagnosis Date - Asthma, intermittent - Constipation - History of depression - Internal hemorrhoids - Irregular periods PAST SURGICAL HISTORY Procedure Laterality Date - COLONOSCOPY GEN ANES 10/02/2020 - EGD 10/02/2020 - PAST SURGICAL HISTORY OF extraction of wisdom teeth under local Current Outpatient Medications Medication Sig Dispense Refill - polyethylene glycol 3350 (MIRALAX) 17 gram/dose powder Take 17 g by mouth twice daily. 850 g 3 - bisacodyl EC (DULCOLAX, BISACODYL,) 5 mg EC tablet Take two (2) each time, as explained on the instruction sheet provided. 4 tablet 0 No current facility-administered medications for this visit. ALLERGIES Allergen Reactions - Linzess [Linaclotid* Other: See Comments Dizziness FAMILY HISTORY Problem Relation Age of Onset - other (liver cancer) Mother - Breast Cancer Maternal Grandmother - Skin Cancer Maternal Grandfather - Cancer Paternal Grandfather Social History Tobacco Use - Smoking status: Never Smoker - Smokeless tobacco: Never Used Substance Use Topics - Alcohol use: No - Drug use: No Physical Exam: There were no vitals filed for this visit. General Appearance: Well appearing, alert, in no acute distress, well-hydrated, well nourished. Anorectal: Perianal skin is intact. No erythema, induration or excoriation. No fissure, fistula or external hemorrhoids. Digital Rectal Exam: Anus: closed Resting tone: HIGH Squeeze tone: HIGH Valsalva: pelvic floor relaxation is Normal. Puborectalis: tender in Right anterior and Right posterior to palpation on valsalva Rectocele: Absent Full thickness rectal prolapse: No Assessment Anorectal Physiology tests reviewed at today's visit: Reason for testing: constipation, pelvic pain Ileoanal pouch: No Anorectal Manometry Testing: Strength: Anorectal manometry was performed. ? Average Pressure Interpretation Rest: 59 mmHg This is above normal range. Normal range is 35-50 mmHg. Squeeze: 96 mmHg This is within normal range. Normal range is 75 - 100 mmHg. Resting and squeeze pressures well above normal may indicate high pelvic floor tension. There is minimal incremental change between resting and squeeze pressures which can indicate marginal pelvic floor movement with squeeze. Sensory: Sensation Volume First sensation : 47 mL / Normal Range: 40-80 mL First urge to defecate: 76 mL / Normal Range: 80-120 mL Maximum tolerable volume: 138 mL / Normal Range: 120-180 mL Recto-anal inhibitory reflex: yes Balloon expulsion: yes This exhibit normal rectal sensation with at least 2/3 sensory tests. ? A recto-anal inhibitory reflex (RAIR) was present. This is a normal reflex. EMG Recruitment: EMG recruitment was performed. ?The patient shows a normal increase in activity with squeeze, and a appropriate decrease in activity with valsalva. ?This indicates normal pelvic floor movement, which can be indicative of normal pelvic floor coordination. Assessment and Plan: Frederick Tee is a 24 year old FEMALE who was referred for anorectal physiology testing due to symptoms of constipation and pelvic pain. The testing that was performed today includes anorectal manometry, rectal sensory testing, (more content not included)... Normal [facility] HISTORY PHYSICALon HISTORY PHYSICAL HNO ID: [id number] Author: Neal Angeles MD Service: Gastroenterology Author Type: Physician Type: HANDP Filed: 10/02/2020 1:27 PM Note Text: HISTORY AND PHYSICAL Frederick Tee, 24 year old female Current history and physical on file: Yes Is a new History and Physical required for today's visit? No Indication for procedure: Abdominal pain and GI bleeding PROCEDURE(S) SCHEDULED FOR: Colonoscopy with or without biopsies and with or without removal of polyps or lesions, dilation (any means), treatment of bleeding (any means), based on clinical findings. and EGD (Esophagogastroduodeno scopy) with or without biopsies, removal of polyps or lesions, dilation ( any means), treatment of bleeding ( any means), Barrx treatment of Srinivasan's Esophagus, image tube placement or cryo therapy treatment based on clinical findings. BASELINE BEHAVIOR: Calm BASELINE ORIENTATION: A AND O x3 All medications and allergies reviewed: Yes Skin Assessment: Warm dry mucus membranes pink Airway/Respiratory Assessment: Airway: visualization of the uvula- Yes Mouth: opening greater than 2 fingerbreadths- Yes Neck: full range of motion- Yes Breath sounds clear/equal- Yes Cardiac Assessment: Regular rate and rhythm without murmur Abdominal Assessment: Abdomen soft, non-tender, no masses or organomegaly. Sedation Plan: Moderate Additional Comments: None Neal Angeles MD Normal [facility] SURGICAL PATHOLOGYon 021 SURGICAL PATHOLOGY Specimen originated from [facility] Specimen #: [id number] Submitting Physician: NEAL ANGELES FINAL DIAGNOSIS 1. Duodenum, biopsy (A) - Small bowel mucosa with no diagnostic abnormality. 2. Stomach, biopsy (B) - Gastric antral-type mucosa with mild reactive gastropathy. - Separate fragment of gastric oxyntic-type mucosa with no diagnostic abnormality. JEL/kll 10/03/2020 COMMENT 1. Histologic changes of celiac sprue are not identified. 2. No Helicobacter pylori organisms are identified. Sebastian Esqueda M.D. (Electronic Signature) _ SPECIMEN SUBMITTED A: DUODENUM, BIOPSIES B: STOMACH, BIOPSIES CLINICAL DATA ABDOMINAL PAIN GROSS DESCRIPTION A. Received in formalin are three pieces of ruiz, soft tissue aggregating to 0.8 x 0.2 x 0.1 cm. Totally submitted in one cassette. B. Received in formalin are three pieces of ruiz, soft tissue aggregating to 1.1 x 0.3 x 0.2 cm. Totally submitted in one cassette. Gross examination performed at [facility], [address] [place] [address] 10/02/2020 8:58:13 PM Date of Report: 10/03/2020 Date of Procedure: 10/02/2020 Date of Receipt: 10/02/2020 Submitted by: NEAL ANGELES Location: [facility] Diagnostic interpretation performed at [facility], [address] [place], [place] [address] [address]. CLIA Number: [id number] Normal [facility] CNPNon 09-25-2020 CNPN Telephone (ASCNOR) FREDERICK TEE ([id number]) 1995 F Date Time Provider Department 09/25/20 NEAL ANGELES During your visit today, we recorded the following information about you: Leroy Cueto RN 09/25/2020 1:50 PM Signed Spoke with patient: Yes Confirmed date scheduled and patient report time: Yes Procedure Planned:egd AND Colonoscopy with or without biopsies based on clinical findings Is the patient on blood thinners?no Has patient had any allergy/sensitiviy to Latex? If severe, procedure should not be done at the center: No Has patient had any recent cardiac events in the past 6 months? If yes, reschedule for hospital: No Does the patient have an Internal Defibrillator? If yes, he/she needs to be rescheduled for the hospital: No Has patient had any problems with anesthesia in the past or told by a medical professional that he/she was difficult to intubate: No Procedure Instructions given to patient: Yes, and they verbalized their understanding of instructions given Patient instructed to take prescribed preparation prior to procedure:Yes, and they verbalized their understanding of instructions given Patient instructed to have family/friend present for after procedure to transport home:Yes. They verbalized their understanding and agree to have a responsible adult accompany the patient to their procedure and remain in the endoscopy area. Procedure will not be done if no one is available to drive. Has the patient been recently ill, traveled outside the [place] or exposed to any communicable diseases: No Does patient have an advance directive; if yes, please inform patient to bring a copy for the medical record: No Any barriers to Patient learning: Patient/Patient Customer Support Manager responded appropriately on phone. Type of instruction given: Verbal by telephone contact. Leroy Cueto RN Allergies As of Date: 09/25/2020 Noted Allergy Reaction LINZESS (LINACLOTIDE) 09/16/2020 14 - Other: See Comments Comments: Dizziness Date Reviewed: 09/16/2020 Reviewed by: Mary Almazan LPN - Fully Assessed Reason for Visit: PreOp Call [[id number]] Prescriptions as of 09/25/2020 Sig: POLYETHYLENE GLYCOL 3350 17 G* Take one (1) bottle in 2 quar* BISACODYL 5 MG TABLET,DELAYED* Take two (2) each time, as ex* Problem List As Of Date 09/25/2020 Noted Resolved OAB (overactive bladder) [N32.81] 05/18/2018 Pelvic floor dysfunction [M62.89] 05/18/2018 Muscle spasm [M62.838] 06/12/2018 Muscle weakness [M62.81] 07/12/2018 Encounter Status:Closed by LEROY CUETO on 09/25/20 Normal [facility] CNCOon 09-16-2020 CNCO Letter Text Normal [facility] CNOVon 09-16-2020 CNOV Office Visit (OBGYWM ) FREDERICK TEE ([id number]) 1995 F Date Time Provider Department 09/16/20 4:00 PM JACINTA SHEIKH ([facility]) OBGYWM During your visit today, we recorded the following information about you: Blood pressure Weight Last Period 102/68 66 kg 08/30/20 Jacinta Sheikh APRN.[facility] 09/16/2020 2:51 PM Signed Frederick Tee is a 24 year old female who presents for ED follow up. HPI: pain started as pressure in the pelvic area about 1 week ago and then on09/13 went to the ED for blood stool x3 episodes and pain. US showed free fluid in the pelvic area. Today just a dull ache rates it 1-2 and bloody stools has stopped. PAST MEDICAL HISTORY Diagnosis Date - Asthma, intermittent - Constipation - History of depression - Irregular periods PAST SURGICAL HISTORY Procedure Laterality Date - PAST SURGICAL HISTORY OF extraction of wisdom teeth under local FAMILY HISTORY Problem Relation Age of Onset - other (liver cancer) Mother - Breast Cancer Maternal Grandmother - Skin Cancer Maternal Grandfather - Cancer Paternal Grandfather Social History Tobacco Use - Smoking status: Never Smoker - Smokeless tobacco: Never Used Substance Use Topics - Alcohol use: No - Drug use: No Current Outpatient Medications Medication Sig - nystatin (MYCOSTATIN) 100,000 unit/mL suspension Take 5 mL by mouth four times daily. 1tsp swish in mouth for several minutes, then swallow (or expectorate) 4 times daily until gone. (Patient not taking: Reported on 09/16/2020 ) No current facility-administered medications for this visit. Allergies As of Date: 09/16/2020 (No Known Allergies) Fully Assessed 09/16/2020 REVIEW OF SYSTEMS Abdomen: No bloating, early satiety, indigestion, or increased flatulence. No nausea, vomiting, diarrhea, or constipation. +dull pelvic pain Bladder: No dysuria, gross hematuria, urinary frequency, urinary urgency, or incontinence. Expanded ROS: N/A Allergies and current medication updated:Yes EXAM: Wt 145 lb 6.4 oz (66.0kg) LMP 08/30/2020 GENERAL: pleasant, female in no apparent distress HEENT: Normocephalic, atraumatic, mucus membranes moist and no lesions CHEST: Normal inspiratory effort NEURO: alert and oriented x3,exam grossly non-focal EXTREMITIES: normal ASSESSMENT/PLAN: 1. Pelvic fluid collection - ICD9: 789.59, ICD10: R18.8 - PELVIC US WHI - Follow up as needed Jacinta Sheikh APRN.DIGITAL STRATEGIST Medical Decision Making: Problems: Low: Acute, uncomplicated illness or injury Data: Unique test(s) ordered: 1 Risk: Low: Low risk from testing/treatment Medical Decision Making Level: 3 - Low Referring Provider: SELF [200] Allergies As of Date: 09/16/2020 (No Known Allergies) Date Reviewed: 09/16/2020 Reviewed by: Mary Almazan LPN - Fully Assessed Reason for Visit: ED Follow-up [821] Primary Visit Diagnosis:Pelvic fluid collection [R18.8] Order(s):PELVIC US WHI [0121787] Order #: [id number]: 1 Problem List As Of Date 09/16/2020 Noted Resolved OAB (overactive bladder) [N32.81] 05/18/2018 Pelvic floor dysfunction [M62.89] 05/18/2018 Muscle spasm [M62.838] 06/12/2018 Muscle weakness [M62.81] 07/12/2018 Medications Discontinued During This Encounter Prescriptions - nystatin (MYCOSTATIN) 100,000 unit/mL suspension (Discontinued) Reported on 09/16/2020 Encounter Status:Closed by JACINTA SHEIKH on 09/16/20 Normal [facility] Office Visit (WERNER ) FREDERIKC TEE ([id number]) 1995 F Date Time Provider Department 09/16/20 3:40 PM THEODORE COBB During your visit today, we recorded the following information about you: Pulse Blood pressure Weight Height 74/minute 102/68 65.8 kg 1.632 m Theodore Cobb RN QUALITY ANALYST/TECHNICAL WRITER.DIGITAL STRATEGIST 09/16/2020 8:27 PM Signed Frederick Tee a 24 year old female who presents today for reported ED follow up. I saw the patient in consultation on 02/26/20 regarding chronic constipation. That note has been reviewed. The patient reports that she was seen at the [facility] ED on 09/13/20 for bloody bowel movements and was recommended to set up colonoscopy. She has signed a release for those documents. Presenting complaint: bloody stools and ongoing abdominal pain The patient presents today stating that she has a bowel movement every few days. The stools are hard, she strains. She experiences anal burning and stinging when the blood is seen. She tells me that the CT scan showed possible Crohn's. The patient had been prescribed Linzess last fall for chronic constipation. She tells me that she stopped taking it since it made her feel dizzy and only caused small bowel movements. I have put the intolerance on her list. Continues with RUQ discomfort. US and HIDA scan last fall were unremarkable. She agrees to proceed with endoscopies. REVIEW OF SYSTEMS: GENERAL: Weight loss, about 10 pounds Last 6 Encounter Wt Readings: Date: Wt: 09/16/2020 65.8 kg (145 lb) 09/16/2020 66 kg (145 lb 6.4 oz) 04/07/2020 69.4 kg (153 lb) 02/26/2020 69.9 kg (154 lb) 09/29/2019 71.7 kg (158 lb) 02/02/2019 69.3 kg (152 lb 12.8 oz) RESPIRATORY: History of asthma. No recent respiratory complaints CARDIOVASCULAR: Negative for chest pain, leg swelling, hypertension, CHF or palpitations GI: The patient states that her appetite has been poor. She seldom gets hungry. There has been some nausea, no vomiting. She denies dysphagia and denies odynophagia. There has not been indigestion or heartburn. There has not been regurgitation. Bowel habits have been regular. There has not been diarrhea. There has been constipation. The patient admits to rectal bleeding. There has not been melena. Intermittent abdominal pain that is located in the right upper quadrant. PRODUCTION MAINTENANCE MECHANIC: Saw PRODUCTION MAINTENANCE MECHANIC earlier today LMP: 08/30/20. MUSCULOSKELETAL: Right low back pain PSYCH: Positive for depression. HEMATOLOGY/LYMPHOLOGY Negative for prolonged bleeding, bruising easily or swollen nodes ENDOCRINE: Negative for diabetes or thyroid. NEURO: No history of headaches, syncope, paralysis, seizures or tremors All other reviewed and negative other than HPI. PAST MEDICAL HISTORY Diagnosis Date - Asthma, intermittent - Constipation - History of depression - Irregular periods PAST SURGICAL HISTORY Procedure Laterality Date - PAST SURGICAL HISTORY OF extraction of wisdom teeth under local FAMILY HISTORY Problem Relation Age of Onset - other (liver cancer) Mother - Breast Cancer Maternal Grandmother - Skin Cancer Maternal Grandfather - Cancer Paternal Grandfather No current outpatient medications on file. No current facility-administered medications for this visit. SOCIAL HISTORY: Patient is single. She has never smoked. Reports her alcohol or substance use as never. PHYSICAL EXAMINATION: Blood pressure 102/68, pulse 74, height 163.2 cm (5' 4.25), weight 65.8 kg (145 lb), last menstrual period 08/30/2020, SpO2 99 %. General Appearance: Well appearing, alert, in no acute distress, well-hydrated, well nourished. Skin: Skin color, texture, turgor normal. Head: Normocephalic, no abnormalities. Eyes: Anicteric sclera. Oropharynx: Able to open her mouth more than 2 fingers wide. Neck: Supple, no adenopathy; thyroid symmetric, normal size. Lungs: Lungs clear to auscultation. Heart: RRR without murmur. Abdomen: Abdomen soft. TTP mid RUQ, slight TTP lower abdomen, mid line . Bowel sounds normal. No masses, organomegaly. Extremities: No deformities or edema. Neurologic: Gait normal. Sensation grossly intact. Impression: ongoing abdominal pain 2)chronic constipation 3)bright red rectal bleeding with bowel movements 4) reported abnormal CT Plan: The patient will be scheduled for an upper endoscopy as well as a colonoscopy. She will require MAC. Preparation for the procedures, using a modified Miralax Gatorade prep, have been explained in detail. The risks, benefits, anticipated outcomes and possible complications were mentioned, including including failure to complete the endoscopy and perforation. I explained the procedure in understandable terms and the patient was given printed material concerning the planned procedure. The patient had the opportunity to ask questions concerning the planned procedure. The patient freely co (more content not included)... Normal [facility] [place] 09-15-2020 [facility] Telephone (WERNER) FREDERICK TEE ([id number]) 1995 F Date Time Provider Department 09/15/20 THEODORE COBB During your visit today, we recorded the following information about you: Heather Rekha Kang 09/15/2020 12:41 PM Signed Patient was in the Emergency Room on 09-13-20 for bloody bowel movements and is being referred back to you. Patient is stating that she just needs to be referred to have colonoscopy and states that she has seen Theodore in the past and was not sure if she needed to be seen. If you could please reach out to patient. Heatehr Rekha Almazan LPN 09/16/2020 4:07 PM Signed Patient seen in office today. Allergies As of Date: 09/15/2020 (No Known Allergies) Date Reviewed: 04/07/2020 Reviewed by: Pastora Quiroz Ma - Fully Assessed Reason for Visit: Appointment [186] Prescriptions as of 09/15/2020 Sig: X NYSTATIN 100,000 UNIT/ML ORAL* Take 5 mL by mouth four times* Patient not taking: Reported on 09/16/2020 Problem List As Of Date 09/15/2020 Noted Resolved OAB (overactive bladder) [N32.81] 05/18/2018 Pelvic floor dysfunction [M62.89] 05/18/2018 Muscle spasm [M62.838] 06/12/2018 Muscle weakness [M62.81] 07/12/2018 Encounter Status:Closed by MARY ALMAZAN LPN on 09/16/20 Normal [facility] CBC (POC)on 09-13-2020 Basophil, Absolute (POC) 0.03 10 3/mcL Normal 0.00-0.27 [facility] ([place]) Comment on above: Performed By: #### C BCPOC #### Reji Wales [address] [place], [place] [address] Basophils/100 WBC (Bld) 0.3 % Normal 0.0-2.5 [facility] ([place]) Comment on above: Performed By: #### C BCPOC #### Reji Wales [address] [place], [place] [address] Eosinophil, Absolute (POC) 0.06 10 3/mcL Normal 0.00-0.65 [facility] ([place]) Comment on above: Performed By: #### C BCPOC #### Reji Wales [address] [place], [place] [address] Eosinophils/100 WBC (Bld) 0.6 % Normal 0.0-6.0 [facility] ([place]) Comment on above: Performed By: #### C BCPOC #### Reji Chacon [address] [place], [place] [address] Erythrocyte distribution width (RBC) [Ratio] 12.7 % Normal 11.5-15.5 [facility] ([place]) Comment on above: Performed By: #### C BCPOC #### Reji Chacon [address] [place], [place] [address] Hematocrit (Bld) [Volume fraction] 43.7 % Normal 34.0-46.0 [facility] ([place]) Comment on above: Performed By: #### C BCPOC #### Reji Harrison[address] [place], [place] [address] Hemoglobin (POC) 14.8 G/dL Normal 12.0-16.0 [facility] ([place]) Comment on above: Performed By: #### C BCPOC #### Reji [address] [place], [place] [address] Imm Granulocyte, Absolute (POC) 0.01 10 3/mcL Normal [facility] ([place]) Comment on above: Performed By: #### C BCPOC #### Reji Chacon [address] [place], [place] [address] Immature granulocytes/100 WBC (Bld) 0.1 % Normal [facility] ([place]) Comment on above: Performed By: #### C BCPOC #### Reji [address] [place], [place] [address] Lymphocyte, Absolute (POC) 1.80 10 3/mcL Normal 0.90-4.32 [facility] ([place]) Comment on above: Performed By: #### C BCPOC #### Reji [address] [place], [place] [address] Lymphocytes/100 WBC (Bld) 19.3 % Low 20.0-40.0 [facility] ([place]) Comment on above: Performed By: #### C BCPOC #### Reji Chacon [address] [place], [place] [address] MCH (RBC) [Entitic mass] 29.8 pg Normal 27.0-33.0 [facility] ([place]) Comment on above: Performed By: #### C BCPOC #### Reji Chcaon [address] [place], [place] [address] MCHC (POC) 33.9 G/dL Normal 32.0-36.0 [facility] ([place]) Comment on above: Performed By: #### C BCPOC #### Reji Chacon [address] [place], [place] [address] MCV (RBC) [Entitic vol] 88.1 fL Normal 80.0-99.0 [facility] ([place]) Comment on above: Performed By: #### C BCPOC #### Reji Chacon [address] [place], [place] [address] Monocyte, Absolute (POC) 0.64 10 3/mcL Normal 0.09-1.40 [facility] ([place]) Comment on above: Performed By: #### C BCPOC #### Reji [address]n [address] [place], [place] [address] Monocytes/100 WBC (Bld) 6.8 % Normal 2.0-13.0 [facility] ([place]) Comment on above: Performed By: #### C BCPOC #### Reji Chacon [address] [place], [place] [address] Neutrophil, Absolute (POC) 6.81 10 3/mcL Normal 2.25-8.10 [facility] ([place]) Comment on above: Performed By: #### C BCPOC #### Reji Chacon [address] [place], [place] [address] Neutrophils/100 WBC (Bld) 72.9 % Normal 50.0-75.0 [facility] ([place]) Comment on above: Performed By: #### C BCPOC #### Reji Chacon [address] [place], [place] [address] Performing Instrument - POCT SYSMEX Normal [facility] ([place] Comment on above: Performed By: #### C BCPOC #### Reji [address] [place], [place] [address] Platelet (POC) 342 10 3/mcL Normal 150-450 [facility] ([place] Comment on above: Performed By: #### C BCPOC #### Reji Chacon [address] [place], [place] [address] Platelet mean volume (Bld) [Entitic vol] 9.5 fL Normal 6.6-10.5 [facility] ([place]) Comment on above: Performed By: #### C BCPOC #### Rejivern [address] [place], [place] [address] RBC (POC) 4.96 10 6/mcL Normal 4.50-6.00 [facility] ([place]) Comment on above: Performed By: #### C BCPOC #### [facility] [address] [place], [place] [address] WBC (POC) 9.35 10 3/mcL Normal 4.50-10.80 [facility] ([place]) Comment on above: Performed By: #### C BCPOC #### [facility] [address] [place], [place] [address] CT ABD/PELVIS W/ IV CONTRAST ONLYon 09-13-2020 CT ABD/PELVIS W/ IV CONTRAST ONLY ORIGINAL CT ABDOMEN/PELVIS with intravenous and without oral contrast Clinical Statement: pain, diarrhea with blood Comparison: None TECHNIQUE:This exam was performed according to our departmental dose optimization program, and includes the following measures where applicable: automated exposure control, adjustment of the mAs and/or kVp according to patient size and/or exam, and an iterative reconstruction algorithm. FINDINGS: There is no sign of bowel obstruction or perforation. Grossly normal stomach. Normal appendix. No significant diverticulosis of the colon or obvious signs of colitis. Some of the lower abdominal/pelvic small bowel loops show moderate amount of fluid and mild enhancement of the wall. This does not seem to involve the terminal ileum which is unremarkable. There is questionable fatty liver. Otherwise the liver, bile ducts, portal veins, gallbladder, spleen, pancreas, adrenal glands, aorta are unremarkable. Kidneys enhance symmetrically without focal abnormality or asymmetric perinephric stranding. Tiny renal calculi are not excludable on this contrast study. No ureteral dilatation or stone. No pathologic retroperitoneal or mesenteric lymphadenopathy. No abdominal ascites. Trace pelvic ascites is nonspecific and could be physiologic at this patient's age. The urinary bladder is almost empty. Uterus and adnexa are within normal limits for this patient's age. No inguinal hernia or lymphadenopathy. No acute skeletal findings. The included lung bases show no acute process. IMPRESSION: No definite acute process. Mild enhancement of the zuniga of some of the pelvic small bowel loops may be incidental, mild enteritis is another possibility. Suggest clinical correlation and follow-up. Interpreted By: Jason See MD Preliminary Report By: Jason See MD Electronically Signed By: Jason See MD Dictated Date: 09/13/2020 7:10:56 PM Prelim Date: 09/13/2020 7:10:56 PM Sign Date: 09/13/2020 7:14:50 PM Ordering Provider:Guy Morales [facility]) PREGU (POC)on 09-13-2020 Beta HCG ( test) Ql (U) Negative [facility] ([place]) Comment on above: Result Comment: A po sitive result indicates hCG detected. A negative result indicates hCG was not detected. An invalid result indicates internal control failure and testing should be repeated with a new test cassette. Performed By: #### U HCGPOC #### [facility] [address] [place], [place] [address] Performing Instrument - POCT DELLA [facility]) Comment on above: Performed By: #### U HCGPOC #### [facility] [address] [place], [place] [address] RENAL12 (POC)on 09-13-2020 Albumin Level (POC) 4.2 G/dL Normal 3.2-4.8 [facility] ([place]) Comment on above: Performed By: #### R [id number] #### [facility] [address] [place], [place] [address] Calcium [Mass/Vol] 10.1 mg/dL Normal 8.4-10.1 [facility] [place] Comment on above: Performed By: #### R [id number] #### Rejivern [address] [place], [place] [address] Chloride [Moles/Vol] 105 mmol/L Normal 98-110 [facility] ([place]) Comment on above: Performed By: #### R [id number] #### [facility] [address] [place], [place] [address] CO2 [Moles/Vol] 29 mmol/L Normal 22-32 [facility] ([place]) Comment on above: Performed By: #### R [id number] #### [facility] [address] [place], [place] [address] Creatinine [Mass/Vol] 0.70 mg/dL Normal 0.50-1.20 [facility] ([place]) Comment on above: Performed By: #### R [id number] #### [facility] [address] [place], [place] [address] Est GFR (POC) >60 Normal [facility] ([place]) Comment on above: Result Comment: Chronic Kidney Disease: Less than 60 mL/min/1.73 square meters End Stage Renal Disease: Less than 15 mL/min/1.73 square meters Performed By: #### R [id number] #### [facility] [address] [place], [place] [address] Est GFR Non- (POC) >60 Normal [facility] ([place]) Comment on above: Result Comment: Chronic Kidney Disease: Less than 60 mL/min/1.73 square meters End Stage Renal Disease: Less than 15 mL/min/1.73 square meters Performed By: #### R [id number] #### Ferris Wales [address], [place] [address] Glucose [Mass/Vol] 94 mg/dL Normal 70-110 [facility] ([place]) Comment on above: Performed By: #### R [id number] #### [facility] [address], [place] [address] Lactate [Moles/Vol] 1.1 mmol/L Normal 0.2-2.0 [facility] ([place]) Comment on above: Performed By: #### R [id number] #### Reji Harrisonn [address], [place] [address] Magnesium [Mass/Vol] 2.1 mg/dL Normal 1.6-2.4 [facility] ([place]) Comment on above: Performed By: #### R [id number] #### Reji Harrisonn [address], [place] [address] Performing Instrument - POCT DEXTER Normal [facility] ([place]) Comment on above: Performed By: #### R [id number] #### Rejivern Chacon [address], [place] [address] Phosphorus Level (POC) 4.3 mg/dL Normal 2.5-4.5 [facility] ([place]) Comment on above: Performed By: #### R [id number] #### Rejivern Harrisonn [address], [place] [address] Potassium [Moles/Vol] 3.9 mmol/L Normal 3.5-5.0 [facility] ([place]) Comment on above: Performed By: #### R [id number] #### Rejivern WattsWales [address], [place] [address] Sodium [Moles/Vol] 144 mmol/L Normal 136-145 [facility] ([place]) Comment on above: Performed By: #### R [id number] #### Rejivern Chacon [address], [place] [address] Urea nitrogen [Mass/Vol] 8.0 mg/dL Normal 8.0-22.0 [facility] ([place]) Comment on above: Performed By: #### R [id number] #### Reji Harrisonn [address] [place], [place] [address] UA (POC)on 09-13-2020 Appearance (U) Clear Normal Clear [facility] ([place]) Comment on above: Performed By: #### U ADIPPOC #### Reji Wattsillon [address], [place] [address] Bilirubin Ql (U) Negative Normal Neg-Trace [facility] ([place]) Comment on above: Performed By: #### U ADIPPOC #### Reji Harrisonn [address], [place] [address] Color (U) Light yellow Normal [facility] ([place]) Comment on above: Performed By: #### U ADIPPOC #### Reji Harrisonn [address] [place], [place] [address] Glucose Ql (U) Negative Normal Negative [facility] ([place]) Comment on above: Performed By: #### U ADIPPOC #### Reji Harrisonn [address] [place], [place] [address] Hemoglobin Ql (U) Negative Normal Neg-Trace [facility] ([place]) Comment on above: Performed By: #### U ADIPPOC #### Reji Harrisonn [address], [place] [address] Ketones Ql (U) Negative Normal Neg-Trace [facility] ([place]) Comment on above: Performed By: #### U ADIPPOC #### Rejivern WattsWales [address] [place], [place] [address] Leukocyte esterase Test strip Ql (U) Negative Normal Neg-Trace [facility] ([place]) Comment on above: Performed By: #### U ADIPPOC #### Reji Wattsillon [address], [place] [address] Nitrite Ql (U) Negative Normal Negative [facility] ([place]) Comment on above: Performed By: #### U ADIPPOC #### Rejivern Harrisonn [address] [place], [place] [address] Performing Instrument - POCT CLINITEK Normal [facility] ([place]) Comment on above: Performed By: #### U ADIPPOC #### Rejivern Harrisonn [address] [place], [place] [address] pH (U) 7.0 [pH] Normal 5.0 - 8.0 [facility] ([place]) Comment on above: Performed By: #### U ADIPPOC #### Reji Wales [address], [place] [address] Protein Ql (U) Negative Normal Neg-30 [facility] ([place]) Comment on above: Performed By: #### U ADIPPOC #### Reji Wales [address] [place], [place] [address] Specific gravity (U) [Rel density] 1.010 Normal 1.006-1.029 [facility] ([place]) Comment on above: Performed By: #### U ADIPPOC #### Reji Wales [address], [place] [address] Urobilinogen Qn (U) 0.2 {Gala'U}/dL Normal 0.2-1.0 [facility] ([place]) Comment on above: Performed By: #### U ADIPPOC #### Reji Wales [address] [place], [place] [address] Progress Noteon 10-17-2018 Cardiovascular Physician Assistant Authentication Interface Message Text Patient ID: Frederick Tee is a 22 y.o. female. Her chief complaint(s) include: 21+ YEAR WELL CHILD Assessment 1. Routine general medical examination at a health care facility 2. Screening examination for pulmonary tuberculosis 3. Persistent depressive disorder Plan Frederick was seen today for 21+ year well child. Diagnoses and all orders for this visit: Routine general medical examination at a health care facility - Behavioral/Emotional Assessment w Score - PHQ-9 Screening examination for pulmonary tuberculosis - PPD - [facility] Persistent depressive disorder Patient denies any suicidal thoughts or ideations. She was in counseling in the past and declined a referral at this time. Also, had been on antidepressants in the past and does not want to be on any at this time. Having a lot of stress but feels she is ok with handling it for now. Has a good support system in place. To call if worsening symptoms or any suicidal thoughts. In my clinical judgment, patient is safe to go home. Asthma is doing well. Continue with current treatment. To call if any concerns. Return in about 1 year (around 10/18/2019) for well check. Subjective She is unaccompanied. 21+ YEAR WELL CHILD Home: Frederick has an adult to turn to for help and is permitted and able to make independent decisions. Frederick does not eat meals with family, has no home risk identified and does not pay the bills. Education: She is in lupillo year of college and is doing well and is getting along with peers. (Majoring in dental assistance) Eating: Frederick eats regular meals including fruits and vegetables, eats breakfast, limits fast food, drinks non-sweetened liquids and has a calcium source (cheese). Activities & Sports: She has a job ([employer]) and has drivers license. She performs less than 1 hour of physical activity daily (depending on the day) and engages in screen time more than 2 hours daily. Safety: She has a violence free home, has peer relationships free from violence and uses seat belt. She does not use phone/text while driving. Sex: Frederick is sexually active. STD screening offered and declined. Frederick was 20 when she had her first sexual encounter. She has had 1 partners. Her sexual partners are males. She identifies as heterosexual. Frederick always uses condoms. Typically, she uses oral contraceptives as her current contraceptive method. She has previously been : no She has not had an STD. Laboratory screenings have included: chlamydia / gonorrhea (done several times: always negative and still with same partner. Patient has no concerns and declined testing this year). Suicidality: She has ways to cope with stress, displays self-confidence (some days), has depression (some) and has anxiety (some). She has no problems with sleep, does not have mood swings, has no suicidal ideation, has no homicidal ideation and is not engaged in counseling. (Does not feel she needs medication for depression/anxiety) Menstruation Last Menstrual period: LMP from [facility] Patient's last menstrual period was 10/09/2018 (exact date).. (Menarche: age 13 years) Menstruation: regular periods Output Urine and Stool Pattern: Urine and Stool Pattern: Normal stool pattern, no constipation, normal urine pattern, no nocturnal enuresis. Stool Consistency: soft Sleep Sleeping Difficulty: no difficulty sleeping Hours of sleep at a time: 6 (to 8 hours) Teen Anticipatory Guidance The following anticipatory guidance was reviewed during the visit: Nutrition: limit junk food/fast food and soft drinks. Safety: use safety helmet/gear with activities. Social: avoid or limit screen time and parental limits and consequences for unacceptable behavior. Health: age appropriate dental care, age appropriate sleep habits, avoid situations where drugs and alcohol are present, practice abstinence- the safest way to prevent and STDs, talk with trusted adult if feeling sad or nervous, learn to manage time and activities, be responsible for attendance/ homework/ course selection and learn about self and strengths. Screenings Previous Vaccine Reactions: No. Life events information was reviewed-no referral needed (social determinant questionnaire completed: no concerns at this time. Positive results was something that happened years ago and not an issue at this time.) Tuberculosis Concerns: Negative Tuberculosis Screen Concerns: no exposure to Tb or person with positive ppd Hearing Vision Concerns: Patient wears glasses or contact lenses. The caregiver has no concerns about the patient's hearing. The caregiver has no concerns about the patient's vision. Patient is being seen by side laster tack or manpower development specialist manager. Hyperlipidemia Concerns: Negative Hyperlipidemia Screen Concerns: no parent or grandparent with [place] angina peripheral or cerebrovascular disease <55 years Primary Care Review of Systems Objective Vital Signs 10/17/18 1209 BP: 109/60 Pulse: 72 Weight: 67 kg Height: 164.5 cm Body mass index is 24.76 kg/m . Physical Exam Constitutional: She appears well. She is active. No distress. HENT: Head: Atraumatic. Right Ear: Tympanic membrane and external ear normal. Left Ear: Tympanic membrane and external ear normal. Nose: Nose normal. No nasal deformity or nasal discharge. Mouth/Throat: Mucous membranes are moist. Dentition is normal. Oropharynx is clear. Eyes: Conjunctivae are normal. Neck: Normal range of motion. Neck supple. No neck adenopathy. Cardiovascular: Normal rate, regular rhythm, S1 normal and S2 normal. Heart murmur not heard. Pulses: Femoral pulses are 2+ on the right side, and 2+ on the left side Pulmonary/Chest: Breath sounds normal. No respiratory distress. Exhibits no deformity. Abdominal: Soft. Bowel sounds are normal. She exhibits no distension and no mass. There is no hepatosplenomegaly. There is no tenderness. Skin: No rash noted. No pallor. Skin is warm. Vitals reviewed: Blood pressure 109/60, pulse 72, height 164.5 cm, weight 67 kg, last menstrual period 10/09/2018. Normal [facility] Progress Noteon 12-20-2017 Cardiovascular Physician Assistant Authentication Interface Message Text Patient ID: Frederick Tee is a 21 y.o. female. Her chief complaint(s) include: Contraception (med check) Assessment 1. Irregular periods/menstrual cycles 2. Need for vaccination 3. Vaginal yeast infection Plan Frederick was seen today for contraception. Diagnoses and all orders for this visit: Irregular periods/menstrual cycles Need for vaccination - Hepatitis B vaccine (Adult >= 20y) - Varicella vaccine Vaginal yeast infection - fluconazole (DIFLUCAN) 150 MG tablet; Take 1 Tab (150 mg) by mouth every 24 hours Repeat in 1 week Patient doing much better with irregular menses since starting the OCP. Will continue current medications and continue to monitor. Regarding vaginal discharge, will give script for diflucan x 2 doses. Discharge most likely due to yeast infection since being on antibiotics for UTI. Patient to call if not improving or worsening over next week. Return in about 6 months (around 06/22/2018). Subjective She is accompanied by her mother. Contraception Frederick is here today regarding a refill. status: not . The patient has a significant other. She dates males. The patient has had sex. The patient states that she and her partner engage in vaginal sex. Typically, she uses condoms and oral contraceptives as her current contraceptive method. She states that her last sexual encounter was 1 month ago. Condom used at last sexual encounterHer partner has had an STD: no. STD screening offered and declined. (Had it done recently and was negative). The patient has reached menarche. Frederick's age at menarche was 13. Patient's last menstrual period was 11/29/2017 (within days). She states that her menstrual cycles normally last 5 days. She has had 12 periods in the last 12 months. There is an interval of 28 days between last two cycles. Previously, there was an interval of 28 days between cycles. She describes her cycle as having: regularity - every 28-30 days. She uses pads (sanitary napkins) during her cycle. Her history is . The patient has not spent the night in the hospital. She has not had a blood clot in her legs or lungs. There is not a family history of blood clots in the legs or lungs. She had no miscarriages. There is a family history of miscarriages. There is no cancer in the patient's history. The patient reports no stroke or heart attack. She currently could not be . She does not have Sickle Cell, Diabetes, gall bladder or liver disease. She has no severe headaches. Frederick does not have migraines She does not smoke. She is taking medications properly. The side effects includes: tenderness (some breast tenderness), headache (not out the ordinary), mood changes (unsure if due to OCP) and vaginal discharge (prior to bladder infection--on antibiotics for bladder infection). The side effects does not include: break through bleeding, hair Loss, nausea, skin irritation, weight gain and weight loss. Primary Care Review of Systems Objective Vital Signs 12/20/17 1146 BP: 112/56 Pulse: 71 Temp: 36.7 C (98.1 F) TempSrc: Temporal Weight: 66.6 kg Height: 164.3 cm Body mass index is 24.67 kg/m . Physical Exam Constitutional: She appears well. She is active. No distress. HENT: Head: Atraumatic. Right Ear: Tympanic membrane and external ear normal. Left Ear: Tympanic membrane and external ear normal. Nose: Nose normal. Mouth/Throat: Mucous membranes are moist. Dentition is normal. Eyes: Conjunctivae and EOM are normal. Pupils are equal, round, and reactive to light. Neck: Neck supple. No neck adenopathy. Cardiovascular: Normal rate, regular rhythm, S1 normal and S2 normal. Pulses are palpable. Pulmonary/Chest: Effort normal and breath sounds normal. Abdominal: Soft. Bowel sounds are normal. She exhibits no distension and no mass. There is no tenderness. Musculoskeletal: She exhibits no deformity. Neurological: She is alert. She has normal strength. She exhibits normal muscle tone. Skin: No rash noted. No cyanosis. No pallor. Skin is warm. Vitals reviewed: Blood pressure 112/56, pulse 71, temperature 36.7 C (98.1 F), temperature source Temporal, height 164.3 cm, weight 66.6 kg, last menstrual period 11/29/2017. Normal [facility] Vital Signs Date Time Vital Sign Value Performing Clinician Faci lity 01-23-2025 14:03-0400 Body height 162.6 cm Anna Eller MD Work Phone: [facility] 01-23-2025 14:03-0400 Body mass index (BMI) [Ratio] 31.41 kg/m2 Anna Eller MD Work Phone: [facility] 01-23-2025 14:03-0400 Body weight 83.01 kg Anna Eller MD Work Phone: [facility] 01-23-2025 14:03-0400 Diastolic blood pressure 77 mm[Hg] Anna Eller MD Work Phone: [facility] 01-23-2025 14:03-0400 Heart rate 71 /min Anna Eller MD Work Phone: [facility] 01-23-2025 14:03-0400 Systolic blood pressure 125 mm[Hg] Anna Eller MD Work Phone: [facility] 08-28-2021 12:30-0400 Body temperature 98.1 [degF] Jong Athy PA-C Work Phone: [facility] 08-28-2021 12:30-0400 Body weight 71.12 kg Jong Athy PA-C Work Phone: [facility] 08-28-2021 12:30-0400 Diastolic blood pressure 66 mm[Hg] Jong Athy PA-C Work Phone: [facility] 08-28-2021 12:30-0400 Heart rate 86 /min Jong Athy PA-C Work Phone: [facility] 08-28-2021 12:30-0400 Respiratory rate 18 /min Jong Athy PA-C Work Phone: [facility] 08-28-2021 12:30-0400 SaO2% (BldA) [Mass fraction] 99 % Jong Athy PA-C Work Phone: [facility] 08-28-2021 12:30-0400 Systolic blood pressure 118 mm[Hg] Jong Athy PA-C Work Phone: [facility] Encounters Encounter Date Encounter Type Care Provider Facility Start: 01-26-2025 End: 03-28-2025 Follow-up encounter Anna Eller MD Work Phone: [facility] Obstetrics and Gynecology - [place] Comment on above: US pelvis transvagin al Start: 01-24-2025 End: 01-24-2025 ambulatory ANNA ELLER [facility] Start: 01-23-2025 End: 01-23-2025 Office outpatient new 30 minutes Anna Eller MD Work Phone: [facility] Obstetrics and Gynecology - [facility] Comment on above: Pelvic pain (Primary Dx); Dyspareunia in female; Chronic idiopathic constipation Start: 01-23-2025 End: 01-23-2025 ambulatory ANNA ELLER [facility] Start: 12-14-2024 End: 12-14-2024 ambulatory Shannon Olivas RN [facility] Clinical Communication Start: 12-14-2024 End: 12-14-2024 Patient encounter procedure Shannon Olivas RN [facility] Clinical Communication Start: 08-28-2021 End: 08-28-2021 Subsequent hospital visit by physician Javid [facility] Work Phone: Radiology Comment on above: Chest pain, unspecif ied type [R07.9] Start: 08-28-2021 End: 08-28-2021 Patient encounter procedure Jong Morin PA-C Work Phone: [facility] Comment on above: Pleurisy (Primary Dx ) Start: 04-20-2021 End: 04-20-2021 Subsequent hospital visit by physician Javid [facility] Work Phone: Radiology Comment on above: Foot pain, right [M7 9.671] Procedures Date Procedure Procedure Detail Performing Clinician Start: 08-28-2021 Radiologic exam ches t 2 views Jong Morin PA-C Work Phone: Start: 04-20-2021 Radex foot complete minimum 3 views Aliya Guevara APRN.CNP Work Phone: Plan of Treatment Date Care Activity Detail Author Start: 12-25-2071 RSV Immunization for Adults (1 - 1-dose 75+ series) RSV Immunization for Adults (1 - 1-dose 75+ series) [facility] Start: 07-28-2047 Zoster Vaccines (1 of 2) Zoste r Vaccines (1 of 2) [facility] Start: 05-09-2030 DTaP/Tdap/Td Vaccine s (8 - Td or Tdap) DTaP/Tdap/Td Vaccines (8 - Td or Tdap) [facility] Start: 05-09-2030 Urine microalbumin profile DTaP,Tdap,Td Vaccine (8 - Td or Tdap) [facility] Start: 07-26-2025 Depression Monitoring Depression Mon itoring [facility] Start: 01-28-2025 COVID-19 Vaccine ( season) COVID-19 Vaccine ( season) [facility] Start: 01-28-2025 Influenza vaccination Influenza Vacc ine (#1) [facility] Start: 01-23-2025 End: 01-23-2025 Patient encounter procedure 01/23/2025 2:00 PM EDT Office Visit [facility] Obstetrics and Gynecology [facility] [address] [place], [place] [id number] Anna Eller MD [address] [place] [address] [facility] Obstetrics and Gynecology - [facility] Start: 01-23-2025 End: 01-23-2026 US Pelvis transvaginal US pelvis transvaginal Imaging Routine Pelvic pain Dyspareunia in female Expected: 01/23/2025, Expires: 01/23/2026 [facility] Work Phone: Comment on above: Expected: 01/23/2025 , Expires: 01/23/2026 Start: 01-29-2024 Covid-19 Vaccine ( season) Covid-19 Vaccine ( season) [facility] Start: 01-29-2024 Influenza vaccination Influenza Vacc ine (#1) [facility] Start: 01-28-2022 Influenza vaccination INFLUENZ A (Season Ended) [facility] Start: 04-13-2021 COVID-19 VACCINE (3 - Booster for Moderna series) COVID-19 VACCINE (3 - Booster for Moderna series) [facility] Start: 01-17-2021 PAP TESTING PAP TESTING [facility] Start: 01-17-2021 Screening for malign ant neoplasm of cervix Cervical Cancer Screening [facility] Start: 2017 Screening for malign ant neoplasm of cervix Pap Smear [facility] Start: 12-25-2015 Pneumococcal Vaccine : Pediatrics (0 to 5 Years) and At-Risk Patients (6 to 49 Years) (1 of 2 - PCV) Pneumococcal Vaccine: Pediatrics (0 to 5 Years) and At-Risk Patients (6 to 49 Years) (1 of 2 - PCV) [facility] Start: 12-25-2015 Urine microalbumin profile DTAP,TDAP,TD (1 - Tdap) [facility] Start: 2014 Anxiety Screening Anxiety Screening [facility] Start: 2014 Depression Screening Depression Scre ening [facility] Start: 2014 HEPATITIS C SCREENING HEPATITIS C [facility] Start: 2014 Hepatitis C screening Hepatitis C [facility] Start: 2014 HIV SCREENING HIV SCREENING [facility] Start: 2014 HIV screening HIV Screening [facility] Start: 2012 Meningococcal B Vacc ine: Consider Based On Risk (1 of 2 - Patient Seeks Protection) Meningococcal B Vaccine: Consider Based On Risk (1 of 2 - Patient Seeks Protection) [facility] Start: 2010 PEDS TO ADULT TRANSI TION ANNUAL ASSESSMENT PEDS TO ADULT TRANSITION ANNUAL ASSESSMENT [facility] Start: 2008 Adult depression screening assessment DEPRESSION SCREENING [facility] Start: 2008 PEDS TO ADULT TRANSI TION INITIAL DISCUSSION PEDS TO ADULT TRANSITION INITIAL DISCUSSION [facility] Start: 12-25-2007 HPV VACCINE (1 - 2-d ose series) HPV VACCINE (1 - 2-dose series) [facility] Start: 2006 MENINGOCOCCAL B: Consider based on risk (1 of 2 - Risk Bexsero 2-dose series) MENINGOCOCCAL B: Consider based on risk (1 of 2 - Risk Bexsero 2-dose series) [facility] Start: 1996 HIV screening HIV Screening [facility] elizabeth US Pelvis transvaginal US pelvis transvaginal Imaging Routine Pelvic pain Dyspareunia in female 01/24/2025 4:12 PM EDT [facility] Immunizations Immunization Date Immunization Notes Care Provider Abbe riaz 01-24-2020 influenza virus vacc ine, unspecified formulation Xr [facility] Work Phone: [facility] Payers Date Payer Category Payer Commercial Managed C are - HMO [employer] [id number] 2024 Unknown [id number] 2019 Private Health Insurance [facility] UMR CHOICE PLUS [id number] 2019-Present [phone] [place] [id number] O [id number] 2019 Private Health Insurance [facility] UMR CHOICE PLUS [id number] 2019-Present [phone] [place] [id number] O [id number] Social History Date Type Detail Facility Start: 12-14-2017 End: 01-23-2025 Tobacco smoking status NHIS Never smoked tobacco [facility] Start: 12-14-2017 End: 01-23-2025 Tobacco use and exposure Smokeless tobacco non-user [facility] Start: 04-20-2021 End: 08-28-2021 Alcohol intake Current non-drinker of alcohol (finding) [facility] Start: 1995 Sex Assigned At Not on file C [facility] Start: 08-18-2021 End: 08-28-2021 Exposure to SARS-CoV-2 (event) Not sure [facility] Start: 08-28-2021 End: 01-23-2025 History of Social function [facility] Start: 08-28-2021 End: 01-23-2025 Tobacco use panel [facility] National Score (1-10 0), lower number is lower risk Not on file [facility] Tobacco smoking stat us NHIS Tobacco smoking consumption unknown [facility] Start: 1996 Sex assigned at Female S [facility] Start: 12-14-2024 Sex Female (finding) [facility] Start: 12-14-2024 Gender identity Identifies as female gender (finding) [facility] Start: 12-14-2024 Sexual orientation Heterosexual (fin ding) [facility] Start: 01-23-2025 Alcoholic beverage intake Life time non-drinker (finding) [facility] How often do you nee d to have someone help you when you read instructions, pamphlets, or other written material from your doctor or pharmacy [SILS] Never [facility] Has the [employer], or [employer] threatened to shut off services in your home in past 12Mo No [facility] Are you now , , , , never or living with a partner? Never [facility] How often to you hav e a drink containing alcohol? 2-4 times a month [facility] How many standard dr inks containing alcohol do you have on a typical day? 1 or 2 [facility] How hard is it for y ou to pay for the very basics like food, housing, medical care, and heating Somewhat hard [facility] Do you feel stress - tense, restless, nervous, or anxious, or unable to sleep at night because your mind is troubled all the time - these days [OSQ] Very much [facility] [employer] (I/We) worried wheth er (my/our) food would run out before (I/we) got money to buy more. Never true [facility] Functional Status Date Assessment Result Facility 01-23-2025 Patient Health Quest ionnaire 2 item (PHQ-2) [Reported] [facility] 01-23-2025 Little interest or p krista in doing things More than half the days 01/23/2025 5:05 AM EDT Mychart, Generic More than half the days [facility] 01-23-2025 Feeling down, depres sed, or hopeless More than half the days 01/23/2025 5:05 AM EDT Mychart, Generic More than half the days [facility] [employer] 01-23-2025 Total score [AUDIT-C] 2 01/24/20 5:02 AM EDT Mychart, Generic [facility] [employer] 01-23-2025 How often to you hav e a drink containing alcohol? 2-4 times a month 01/23/2025 5:02 AM EDT [employer], Generic 2-4 times a month [facility] [employer] 01-23-[address] inks containing alcohol do you have on a typical day? 1 or 2 01/23/2025 5:02 AM EDT Mychart, Generic 1 or 2 [facility] [employer] 01-23-2025 How often do you hav e 6 or more drinks on 1 occasion? Never 01/23/2025 5:02 AM EDT Mychart, Generic Never [facility] [employer] Clinical Notes 09-16-2020 to 01-23-2025 Samantha Murrell MA - 01/23/2025 2:00 PM EDTPteetee Eller MD - 01/23/2025 2:00 PM EDTTelephone Encounter - Shannon Olivas RN - 12/14/2024 9:05 AM EDTCernesto Morin PA-C - 08/28/2021 2:06 PM EDT Note Date & Type Note Facility 01-23-2025 History of Presen t illness Narrative A mica parts sprayer was offered to be present during her exam. The patient: declined. Subjective Patient ID: Freedrick Tee is a 29 y.o. female who presents for New Patient (Lower R abdominal pain ). This new pt presents for consultation. She had a eab at 8 weeks 2 yrs ago. Since that time she has noted nonsepcific pain in the rlq. It is very sharp and debilitating just before her period. She describes the location as being right next to the hip and the entire rlq. It lasts the entire day if ovulation. It also lasts the week before. She also notes severe dyapareunia with deep penetration. Periods regular with flow senior php developer the past few months lasting 1-2 days. Prior to this time her periods lasted for up to 5 days. They occur every 4 weeks. She has cramping with sharp pain starting 1 week prior to flow. She treats with heat and ibuprofen dual action with minor relief. Other sx include urgency and chronic constipation for which she has been treated in the past by a GI Review of Systems Gastrointestinal: Positive for abdominal pain and constipation. Genitourinary: Positive for dyspareunia. All other systems reviewed and are negative. Objective Physical Exam Vitals reviewed. Constitutional: General: She is not in acute distress. Appearance: Normal appearance. She is normal weight. She is not ill-appearing, toxic-appearing or diaphoretic. HENT: Head: Normocephalic and atraumatic. Cardiovascular: Rate and Rhythm: Normal rate and regular rhythm. Pulmonary: Effort: Pulmonary effort is normal. No respiratory distress. Breath sounds: Normal breath sounds. No wheezing or rales. Abdominal: General: Bowel sounds are normal. There is no distension. Palpations: Abdomen is soft. Tenderness: There is no abdominal tenderness. There is no guarding or rebound. Genitourinary: General: Normal vulva. Vagina: No vaginal discharge. Comments: Uterus small, retroverted, non tender, no rebound or guarding. The adnexa are not tender Musculoskeletal: Cervical back: Normal range of motion and neck supple. Neurological: General: No focal deficit present. Mental Status: She is alert and oriented to person, place, and time. Mental status is at baseline. Cranial Nerves: No cranial nerve deficit. Sensory: No sensory deficit. Motor: No weakness. Coordination: Coordination normal. Gait: Gait normal. Deep Tendon Reflexes: Reflexes normal. Psychiatric: Mood and Affect: Mood normal. Behavior: Behavior normal. Thought Content: Thought content normal. Judgment: Judgment normal. Assessment/Plan Diagnoses and all orders for this visit: Pelvic pain - US pelvis transvaginal; Future Dyspareunia in female - US pelvis transvaginal; Future Chronic idiopathic constipation - simethicone (Mylicon) 80 MG tablet; Take 1 tablet (80 mg) by mouth 4 times daily (before meals and nightly). Follow up after US. Spoke to pt regarding symptoms. They appear to be more GI related than PRODUCTION MAINTENANCE MECHANIC at this time. If US is negative , pt encouraged to follow up with GI documented in this encounter [facility] 12-14-2024 Telephone encounter Note S: Patient spoke with [facility] nurse regarding pelvic pain B: Onset of symptoms/concern 2 years A: Patient had an 2 years ago, patient has felt the pain constant, worsens 1 week prior to her menses, feels it is ovarian pain, current pain 4/10. Heat made pain worse, tried OTC meds without relief. Patient has nausea daily, intermittent dizzy, life long constipation. Patient denies . R: Patient has an upcoming TECHNOLOGY PROJECT MANAGER appointment on 01/23/[address] Nicolás Garza,patient states her insurance limited her to two providers, patient is on a waitlist. Nurse instructed patient to go to the ED if her symptoms get worse, has had symptoms 2 years. Patient understands home care advice. Patient instructed to call back with new or worsening symptoms. Reason for Disposition Constant pelvic pain lasting > 2 hours Protocols used: Pelvic Pain - ADULT-[place] [facility] 12-14-2024 Miscellaneous Notes S: Patient spoke with [facility] nurse regarding pelvic pain B: Onset of symptoms/concern 2 years A: Patient had an 2 years ago, patient has felt the pain constant, worsens 1 week prior to her menses, feels it is ovarian pain, current pain 4/10. Heat made pain worse, tried OTC meds without relief. Patient has nausea daily, intermittent dizzy, life long constipation. Patient denies . R: Patient has an upcoming TECHNOLOGY PROJECT MANAGER appointment on 01/23/[address] Nicolás Garza,patient states her insurance limited her to two providers, patient is on a waitlist. Nurse instructed patient to go to the ED if her symptoms get worse, has had symptoms 2 years. Patient understands home care advice. Patient instructed to call back with new or worsening symptoms. Reason for Disposition Constant pelvic pain lasting > 2 hours Protocols used: Pelvic Pain - ADULT-[place] documented in this encounter [facility] [employer] 08-28-2021 Note HNO ID: [id number] Author: Jong Morin PA-C Service: ? Author Type: Physician Human Resources Training Manager Type: Progress Notes Filed: 08/28/2021 2:09 PM Note Text: This note was created using [employer]. Subjective Frederick Tee is a 25 year old female. HPI Patient presents with feeling like her lungs were burning over the past 2 days. She states she was at her grandparents house and she thinks the house next door may be a meth house. She states that it was smells around her grandparents house. She thinks she may have breathed in some fumes a few days ago and that is what caused the burning in her chest. She denies cough. She has been mildly nauseated. No vomiting. No lightheadedness or dizziness. No shortness of breath. She went to make sure she did not have pneumonia so she came in for evaluation. No OTC meds used. Denies significant past medical history. She has had a sore throat. No congestion or postnasal drip. She does have a history of asthma. She has not been wheezing. Denies any recent travel. No recent surgeries. No leg pain or swelling. She is not on any control. Denies history of PE or DVT. No history of coagulopathy. Review of Systems HENT: Positive for sore throat. Negative for ear pain, postnasal drip, rhinorrhea, sinus pressure and sinus pain. Respiratory: Negative. Cardiovascular: Positive for chest pain. Negative for palpitations and leg swelling. Gastrointestinal: Positive for nausea. Negative for abdominal pain, blood in stool, constipation, diarrhea and vomiting. Genitourinary: Negative. Musculoskeletal: Negative. Skin: Negative. All other systems reviewed and are negative. PAST MEDICAL HISTORY Diagnosis Date - Asthma, intermittent - Constipation - History of depression - Internal hemorrhoids - Irregular periods Current Outpatient Medications Medication Sig Dispense Refill - polyethylene glycol 3350 (MIRALAX) 17 gram/dose powder Take 17 g by mouth twice daily. 850 g 3 - predniSONE (DELTASONE) 20 mg tablet Take 2 tablets by mouth once daily for 5 days. 10 tablet 0 - bisacodyl EC (DULCOLAX, BISACODYL,) 5 mg EC tablet Take two (2) each time, as explained on the instruction sheet provided. (Patient not taking: Reported on 04/20/2021 ) 4 tablet 0 No current facility-administered medications for this visit. PAST SURGICAL HISTORY Procedure Laterality Date - COLONOSCOPY GEN ANES 10/02/2020 - EGD 10/02/2020 - PAST SURGICAL HISTORY OF extraction of wisdom teeth under local FAMILY HISTORY Problem Relation Age of Onset - other (liver cancer) Mother - Breast Cancer Maternal Grandmother - Skin Cancer Maternal Grandfather - Cancer Paternal Grandfather Social History Tobacco Use - Smoking status: Never Smoker - Smokeless tobacco: Never Used Substance Use Topics - Alcohol use: No - Drug use: No Objective BP 118/66 Pulse 86 Temp 36.7 ?C (98.1 ?F) Resp 18 Wt 71.1 kg (156 lb 12.8 oz) LMP 07/22/2021 SpO2 99% BMI 26.91 kg/m? Physical Exam Vitals reviewed. Constitutional: Appearance: Normal appearance. HENT: Head: Normocephalic and atraumatic. Right Ear: Tympanic membrane, ear canal and external ear normal. Left Ear: Tympanic membrane, ear canal and external ear normal. Nose: Nose normal. Mouth/Throat: Mouth: Mucous membranes are moist. Pharynx: Oropharynx is clear. Cardiovascular: Rate and Rhythm: Normal rate and regular rhythm. Heart sounds: Normal heart sounds. Pulmonary: Effort: Pulmonary effort is normal. Breath sounds: Normal breath sounds. Skin: General: Skin is warm and dry. Neurological: General: No focal deficit present. Mental Status: She is alert and oriented to person, place, and time. Assessment and Plan ASSESSMENT/PLAN: 1. Pleurisy - ICD9: 511.0, ICD10: R09.1 Chest x-ray negative. Feel she does have pleurisy. PERC rule is negative. I did give her a prescription for prednisone. Discussed follow-up with PCP. Patient agreeable. Red flags for er care discussed. - XR CHEST 2V FRONTAL/LAT Jong Morin PA-C [facility] 08-28-2021 Note HNO ID: [id number] Author: Ramona Shen RT(R) Service: Nuclear Medicine Author Type: Technologist Type: Progress Notes Filed: 08/28/2021 1:18 PM Note Text: Radiology Service Progress Note PATIENT NAME: Fredreick Tee DATE OF SERVICE: August 28, 2021 TIME: 1:10 PM PATIENT IDENTITY VERIFICATION COMPLETED USING TWO (2) IDENTIFIERS: Name and Date of confirmed by patient verbally. FALL SCREENING: Has the patient had 2 falls in the last year or 1 fall with injury or currently using an Ambulatory Assistive Device (Walker, Cane, Wheelchair, Crutches, etc.)? No PATIENT GENDER DATA: Female. status: : No status: NO. PATIENT RELEVANT IMPLANT DATA REVIEWED: Not Applicable RADIOLOGY DEPARTMENT: General X-ray: Exam(s) Completed: Chest X-Ray PERIPHERAL IV DATA: Not applicable SIGNED BY: RT Neha(R) August 28, 2021 1:10 PM [facility] 08-28-2021 History of Presen t illness Narrative This note was created using [employer]. Subjective Frederick Tee is a 25 year old female. HPI Patient presents with feeling like her lungs were burning over the past 2 days. She states she was at her grandparents house and she thinks the house next door may be a meth house. She states that it was smells around her grandparents house. She thinks she may have breathed in some fumes a few days ago and that is what caused the burning in her chest. She denies cough. She has been mildly nauseated. No vomiting. No lightheadedness or dizziness. No shortness of breath. She went to make sure she did not have pneumonia so she came in for evaluation. No OTC meds used. Denies significant past medical history. She has had a sore throat. No congestion or postnasal drip. She does have a history of asthma. She has not been wheezing. Denies any recent travel. No recent surgeries. No leg pain or swelling. She is not on any control. Denies history of PE or DVT. No history of coagulopathy. Review of Systems HENT: Positive for sore throat. Negative for ear pain, postnasal drip, rhinorrhea, sinus pressure and sinus pain. Respiratory: Negative. Cardiovascular: Positive for chest pain. Negative for palpitations and leg swelling. Gastrointestinal: Positive for nausea. Negative for abdominal pain, blood in stool, constipation, diarrhea and vomiting. Genitourinary: Negative. Musculoskeletal: Negative. Skin: Negative. All other systems reviewed and are negative. PAST MEDICAL HISTORY Diagnosis Date Asthma, intermittent Constipation History of depression Internal hemorrhoids Irregular periods Current Outpatient Medications Medication Sig Dispense Refill polyethylene glycol 3350 (MIRALAX) 17 gram/dose powder Take 17 g by mouth twice daily. 850 g 3 predniSONE (DELTASONE) 20 mg tablet Take 2 tablets by mouth once daily for 5 days. 10 tablet 0 bisacodyl EC (DULCOLAX, BISACODYL,) 5 mg EC tablet Take two (2) each time, as explained on the instruction sheet provided. (Patient not taking: Reported on 04/20/2021 ) 4 tablet 0 No current facility-administered medications for this visit. PAST SURGICAL HISTORY Procedure Laterality Date COLONOSCOPY GEN ANES 10/02/2020 EGD 10/02/2020 PAST SURGICAL HISTORY OF extraction of wisdom teeth under local FAMILY HISTORY Problem Relation Age of Onset other (liver cancer) Mother Breast Cancer Maternal Grandmother Skin Cancer Maternal Grandfather Cancer Paternal Grandfather Social History Tobacco Use Smoking status: Never Smoker Smokeless tobacco: Never Used Substance Use Topics Alcohol use: No Drug use: No Objective BP 118/66 Pulse 86 Temp 36.7 C (98.1 F) Resp 18 Wt 71.1 kg (156 lb 12.8 oz) LMP 07/22/2021 SpO2 99% BMI 26.91 kg/m Physical Exam Vitals reviewed. Constitutional: Appearance: Normal appearance. HENT: Head: Normocephalic and atraumatic. Right Ear: Tympanic membrane, ear canal and external ear normal. Left Ear: Tympanic membrane, ear canal and external ear normal. Nose: Nose normal. Mouth/Throat: Mouth: Mucous membranes are moist. Pharynx: Oropharynx is clear. Cardiovascular: Rate and Rhythm: Normal rate and regular rhythm. Heart sounds: Normal heart sounds. Pulmonary: Effort: Pulmonary effort is normal. Breath sounds: Normal breath sounds. Skin: General: Skin is warm and dry. Neurological: General: No focal deficit present. Mental Status: She is alert and oriented to person, place, and time. Assessment and Plan ASSESSMENT/PLAN: 1. Pleurisy - ICD9: 511.0, ICD10: R09.1 Chest x-ray negative. Feel she does have pleurisy. PERC rule is negative. I did give her a prescription for prednisone. Discussed follow-up with PCP. Patient agreeable. Red flags for er care discussed. - XR CHEST 2V FRONTAL/LAT Jong Morin PA-C documented in this encounter [facility] 08-28-2021 History of Presen t illness Narrative Radiology Service Progress Note PATIENT NAME: Frederick Tee DATE OF SERVICE: August 28, 2021 TIME: 1:10 PM PATIENT IDENTITY VERIFICATION COMPLETED USING TWO (2) IDENTIFIERS: Name and Date of confirmed by patient verbally. FALL SCREENING: Has the patient had 2 falls in the last year or 1 fall with injury or currently using an Ambulatory Assistive Device (Walker, Cane, Wheelchair, Crutches, etc.)? No PATIENT GENDER DATA: Female. status: : No status: NO. PATIENT RELEVANT IMPLANT DATA REVIEWED: Not Applicable RADIOLOGY DEPARTMENT: General X-ray: Exam(s) Completed: Chest X-Ray PERIPHERAL IV DATA: Not applicable SIGNED BY: RT Neha(R) August 28, 2021 1:10 PM documented in this encounter [facility] 04-20-2021 Note HNO ID: [id number] Author: RT Ernestina(Mario) Service: ? Author Type: Technologist Type: Progress Notes Filed: 04/20/2021 6:31 PM Note Text: Radiology Service Progress Note PATIENT NAME: Frederick Tee DATE OF SERVICE: April 20, 2021 TIME: 6:23 PM PATIENT IDENTITY VERIFICATION COMPLETED USING TWO (2) IDENTIFIERS: Name and Date of confirmed by patient verbally. FALL SCREENING: Has the patient had 2 falls in the last year or 1 fall with injury or currently using an Ambulatory Assistive Device (Walker, Cane, Wheelchair, Crutches, etc.)? No PATIENT GENDER DATA: Female. status: : No status: NO. PATIENT RELEVANT IMPLANT DATA REVIEWED: Not Applicable RADIOLOGY DEPARTMENT: General X-ray: Exam(s) Completed: Lower Extremity X-Ray(s): Foot, Right and Wt. Bearing PERIPHERAL IV DATA: Not applicable SIGNED BY: RT Ernestina(R) April 20, 2021 6:23 PM [facility] 04-20-2021 Note HNO ID: [id number] Author: Aliya Guevara APRN.DIGITAL STRATEGIST Service: ? Author Type: Nurse Practitioner Type: Progress Notes Filed: 04/20/2021 8:04 PM Note Text: Subjective HPI HPI Frederick Tee is a 25 year old female who presents today for CC of right foot pain. This started 10 days ago. Has tried ice for relief. Symptoms are worsened by walking. Risk factors hurt foot few months ago, rolled while running and did not get checked out. Denies numbness/tingling of right foot. .Patient presents with: Pain (foot): right, started in feb x 10 days stopped then increased yesterday PAST MEDICAL HISTORY Diagnosis Date - Asthma, intermittent - Constipation - History of depression - Internal hemorrhoids - Irregular periods PAST SURGICAL HISTORY Procedure Laterality Date - COLONOSCOPY GEN ANES 10/02/2020 - EGD 10/02/2020 - PAST SURGICAL HISTORY OF extraction of wisdom teeth under local ALLERGIES Linzess [Linaclotide] MEDICATIONS polyethylene glycol 3350 (MIRALAX) 17 gram/dose powder Take 17 g by mouth twice daily. bisacodyl EC (DULCOLAX, BISACODYL,) 5 mg EC tablet Take two (2) each time, as explained on the instruction sheet provided. FAMILY HISTORY Problem Relation Age of Onset - other (liver cancer) Mother - Breast Cancer Maternal Grandmother - Skin Cancer Maternal Grandfather - Cancer Paternal Grandfather Social History Tobacco Use - Smoking status: Never Smoker - Smokeless tobacco: Never Used Substance Use Topics - Alcohol use: No - Drug use: No ROS Objective Blood pressure 110/68, pulse 70, temperature 36.5 ?C (97.7 ?F), resp. rate 16, weight 68 kg (150 lb), last menstrual period 08/30/2020, SpO2 99 %. Physical Exam Constitutional: General: She is not in acute distress. Appearance: She is not toxic-appearing or diaphoretic. HENT: Head: Normocephalic and atraumatic. Pulmonary: Effort: Pulmonary effort is normal. No accessory muscle usage or respiratory distress. Musculoskeletal: Feet: Neurological: Mental Status: She is alert and oriented to person, place, and time. ASSESSMENT/PLAN: 1. Foot pain, right - ICD9: 729.5, ICD10: M79.671 -no bony abnormality noted on xray -Rest, Ice, Compression, Elevation discussed -discussed use of ibuprofen -follow up with primary care if symptoms persist/worsen in 10-14 days - XR FOOT GENERAL 3V AP/LAT/OBL RIGHT IMPRESSION IMPRESSION: Unremarkable. ? Dictated by : LUIGI NAVA MD Agrees to plan Aliya Guevara APRN.[facility] 04-20-2021 History of Presen t illness Narrative Radiology Service Progress Note PATIENT NAME: Frederick Tee DATE OF SERVICE: April 20, 2021 TIME: 6:23 PM PATIENT IDENTITY VERIFICATION COMPLETED USING TWO (2) IDENTIFIERS: Name and Date of confirmed by patient verbally. FALL SCREENING: Has the patient had 2 falls in the last year or 1 fall with injury or currently using an Ambulatory Assistive Device (Walker, Cane, Wheelchair, Crutches, etc.)? No PATIENT GENDER DATA: Female. status: : No status: NO. PATIENT RELEVANT IMPLANT DATA REVIEWED: Not Applicable RADIOLOGY DEPARTMENT: General X-ray: Exam(s) Completed: Lower Extremity X-Ray(s): Foot, Right and Wt. Bearing PERIPHERAL IV DATA: Not applicable SIGNED BY: RT Ernestina(R) April 20, 2021 6:23 PM documented in this encounter [facility] 01-08-2021 Note HNO ID: [id number] Author: Jong Da Silva PT Service: ? Author Type: Physical Therapist Type: Progress Notes Filed: 01/08/2021 6:31 PM Note Text: Episode Visit Count: 14 Therapist That Will Oversee The Plan Of Care: Jeni Dee PT Start of Care Date: 06/12/18 Onset Date: 05/18/18 Plan of Care Certification Date: 11/24/20 Next Certification Due Date: 01/23/21 Patient Identified by Name and Date of : Yes REHABILITATION AND SPORTS THERAPY PHYSICAL THERAPY DISCONTINUANCE OF CARE PLAN OF CARE UPDATE: Assessment: Frederick Tee is discontinued from Physical Therapy services due to maximal benefit.. Patient was seen for 14 visits from Start of Care Date: 06/12/18 to 01/08/2021 and treatment included: Therapeutic exercise and Manual therapy. Goals for Episode of Care: updated 11/24/20, Updated on 12/25/2020, Updated on 01/08/2021 Incontinence: Patient to demonstrate independence with HEP-MET Patient to urinate every 2 hours-MET Increase strength of pelvic floor to to demonstrate a 10 sec hold 10x with full release-MET Patient demonstrates ability to perform diaphragmatic breathing / Relaxation-MET Patient demonstrates ability to correctly isolate pelvic floor muscles-MET Patient reports increased ability to fully empty bladder / bowels-NOT MET Patient displays proper technique for bearing down without use of accessory muscles-MET Patient displays improved muscle dynamics of pelvic floor including ability to lengthen muscles-MET Pelvic Pain: Patient reports painfree intercourse-NOT ABLE TO ASSESS Patient displays decreased muscle spasms in levator to allow for decreased pain levels-MET SUBJECTIVE: Patient Reason for Visit: Pt reports no changes in bowel function, thinking about increasing Miralax, advised to contact physician regarding this. Pt reports good compliance with HEP. Pt reports feeling comfortable continuing on own at home due to maximal benefit at PT. Pain: Pain Pain Level: 1 Pain Location: Abdomen Description: Dull Frequency: Continuous Post Treatment Pain Post Treatment Pain Level: No Change PROMIS Scales T-scores: mean of general population = 50. 5 points is clinically meaningfully difference Percentiles provide an indication of how the patient's score ranks in relation to the general population. Higher percentile rankings indicate better function/quality of life. 50th percentile is the average of the general population and indicates half of respondents had a worse score. T-scores: mean of general population = 50. 5 points is clinically meaningfully difference Percentiles provide an indication of how the patient's score ranks in relation to the general population. Higher percentile rankings indicate better function/quality of life. 50th percentile is the average of the general population and indicates half of respondents had a worse score. OBJECTIVE MEASURES WITH LEVEL OF FUNCTION: Pelvic Floor Difficulty evacuating / Excessive Straining: Sometimes Incomplete emptying: Yes Pelvic Floor Muscle Assessment Consent for pelvic assessment/testing and treatment: Patient was educated regarding pelvic floor physical therapy assessment/treatment which may include pelvic floor and girdle muscle assessment externally or internally (vaginal or rectal approach).;Patient verbalized consent for the above treatment approaches today. Patient understands they have control of the treatment and an opportunity to stop treatment at any time. Pelvic Floor Muscle Assessment: PERFECT;Muscle Dynamics Power: 3 Endurance: 10 Reps: 10 Contracton Pressure: Moderate squeeze, felt all the way around finger surface Duration of Contraction: >3 seconds Recruitment of pelvic floor muscles: Coordinated Range of Motion: Normal Ability to Lengthen pelvic floor: Yes Pelvic Floor Manual Assessment Lower abdominals: Bilateral (05/30) Suprapubic: Bilateral (05/30) Pelvic Floor Tenderness/Hyperactivity: Tested Rectally in Tested Rectally in : Sidelying (No tightness/tenderness noted.) Tissue Restriction/Tenderness Scale: 1= mild, 2= moderate, 3= severe TREATMENT: Manual Therapy: 1: Reassessment 2: Reviewed PF contraction vs relaxation 3: MFR to B lower abdominals, B suprapubic, supine 4: Discussed discharge planning Skilled Intervention: Manual skills to improve joint mobility, ROM, and decrease pain. Utilized anatomy knowledge of the therapist, and assessment of patient's response to intervention. Billing Manual TherapyTreatment Minutes: 29 Total Treatment Time Minutes (timed and untimed codes) : 29 Jong Da Silva PT [facility] 01-01-2021 Note HNO ID: [id number] Author: Jong Da Silva PT Service: ? Author Type: Physical Therapist Type: Progress Notes Filed: 01/01/2021 6:38 PM Note Text: Episode Visit Count: 13 Therapist That Will Oversee The Plan Of Care: Jeni Dee PT Start of Care Date: 06/12/18 Onset Date: 05/18/18 Plan of Care Certification Date: 11/24/20 Next Certification Due Date: 01/23/21 Patient Identified by Name and Date of : Yes REHABILITATION AND SPORTS THERAPY PHYSICAL THERAPY TREATMENT NOTE ASSESSMENT: Frederick Tee demonstrated difficulty with fully emptying bowels, tolerated manual therapy well with slightly improved pain post-session. The patient will continue to benefit from ongoing skilled physical therapy to decrease soft tissue and muscle restrictions, improve bowel function, and improve overall functional activities. PLAN FOR NEXT VISIT: continue manual work SUBJECTIVE: Patient Reason for Visit: Pt reports constant feeling of indegestion pain, notes that she has increased sugar intake since previous visit, wonders if this might have an effect. Pt reports being able to have a bowel movement with no straining but still feels like she can't fully empty. Pt reports an occasional stinging pain near rectum while having a bowel movement. Pt reports good compliance with HEP. Pain: Pain Pain Level: 2 Pain Location: Abdomen Description: Dull Frequency: Continuous Post Treatment Pain Post Treatment Pain Level: (feels a little better) OBJECTIVE MEASURES WITH LEVEL OF FUNCTION: Pelvic Floor Difficulty evacuating / Excessive Straining: No Incomplete emptying: Yes Pelvic Floor Muscle Assessment Consent for pelvic assessment/testing and treatment: Patient was educated regarding pelvic floor physical therapy assessment/treatment which may include pelvic floor and girdle muscle assessment externally or internally (vaginal or rectal approach).;Patient verbalized consent for the above treatment approaches today. Patient understands they have control of the treatment and an opportunity to stop treatment at any time. Ability to Lengthen pelvic floor: Yes Pelvic Floor Manual Assessment Lower abdominals: Bilateral (1/1, L>R) Adductor: Bilateral (1/2, L>R) Pelvic Floor Tenderness/Hyperactivity: Tested Vaginally in Deep transverse perineal: Left (0/1) Iliococcygeus: Left (0/1) Pubococcygeus: Left (0/1) Tissue Restriction/Tenderness Scale: 1= mild, 2= moderate, 3= severe TREATMENT: Manual Therapy: 1: Gentle stretching to B pelvic floor 2: MFR to B lower abdominals, supine 3: MFR to B adductors, supine 4: Reviewed importance of relaxation techniques, lengthening muscles while having a bowel movement Skilled Intervention: Manual skills to improve joint mobility, ROM, and decrease pain. Utilized anatomy knowledge of the therapist, and assessment of patient's response to intervention. Billing Manual TherapyTreatment Minutes: 39 Total Treatment Time Minutes (timed and untimed codes) : 39 Jong Da Silva PT [facility] 12-25-2020 Note HNO ID: [id number] Author: Jong Da Silva PT Service: ? Author Type: Physical Therapist Type: Progress Notes Filed: 12/25/2020 6:41 PM Note Text: Episode Visit Count: 12 Therapist That Will Oversee The Plan Of Care: Jeni Dee PT Start of Care Date: 06/12/18 Onset Date: 05/18/18 Plan of Care Certification Date: 11/24/20 Next Certification Due Date: 01/23/21 Patient Identified by Name and Date of : Yes REHABILITATION AND SPORTS THERAPY PHYSICAL THERAPY PROGRESS REPORT PLAN OF CARE UPDATE: Assessment: Frederick Tee exhibits improvements in bowel frequency and straining. She continues to be limited with fully emptying bowels, pelvic pain. She is progressing as expected towards her therapy goals as demonstrated by: documented subjective information on progress. She will benefit from continued skilled therapy requiring therapeutic exercise and manual therapy in order to further improve overall functional activities. Functional gains: Improved bowel frequency Improved straining with having a bowel movement Goals for Episode of Care: updated 11/24/20, Updated on 12/25/2020 Incontinence: Patient to demonstrate independence with HEP-MET Patient to urinate every 2 hours-MET Increase strength of pelvic floor to to demonstrate a 10 sec hold 10x with full release-NOT ASSESSED Patient demonstrates ability to perform diaphragmatic breathing / Relaxation-MET Patient demonstrates ability to correctly isolate pelvic floor muscles-NOT ASSESSED Patient reports increased ability to fully empty bladder / bowels-NOT MET Patient displays proper technique for bearing down without use of accessory muscles-NOT ASSESSED Patient displays improved muscle dynamics of pelvic floor including ability to lengthen muscles-NOT ASSESSED Pelvic Pain: Patient reports painfree intercourse-NOT ABLE TO ASSESS Patient displays decreased muscle spasms in levator to allow for decreased pain levels-NOT ASSESSED Planned Interventions, Frequency, and Duration: 1x/week, 4 weeks (reassess at 4 weeks and progress as indicated) Total Number of Visits Planned: 4 Patient to be seen for Therapeutic exercise (10823);Neuromuscular re-education (43270);Manual therapy (22081);Therapeutic activities (66000);Patient/Family/Caregiver Education PLAN FOR NEXT VISIT: internal/external manual work SUBJECTIVE: Patient Reason for Visit: Pt reports improvement in bowel frequency, about 2x/day. Pt reports significant improvement in straining while having a bowel movement, able to breath through it rather than strain, still some trouble with feeling like she's fully emptying bowels. Pt denies having sex since previous session. Pain: Pain Pain Level: 0 Pain Location: (pelvic floor) Post Treatment Pain Post Treatment Pain Level: No Change PROMIS Scales T-scores: mean of general population = 50. 5 points is clinically meaningfully difference Percentiles provide an indication of how the patient's score ranks in relation to the general population. Higher percentile rankings indicate better function/quality of life. 50th percentile is the average of the general population and indicates half of respondents had a worse score. T-scores: mean of general population = 50. 5 points is clinically meaningfully difference Percentiles provide an indication of how the patient's score ranks in relation to the general population. Higher percentile rankings indicate better function/quality of life. 50th percentile is the average of the general population and indicates half of respondents had a worse score. OBJECTIVE MEASURES WITH LEVEL OF FUNCTION: Pelvic Floor Difficulty evacuating / Excessive Straining: No Incomplete emptying: Yes Bowel Movement Frequency: 2x/day Pelvic Floor Muscle Assessment Consent for pelvic assessment/testing and treatment: (Internal assessment deferred due to pt on cycle.) Pelvic Floor Manual Assessment Lower abdominals: Bilateral (1/2, R>L) Adductor: Bilateral (1/2, L>R) Tissue Restriction/Tenderness Scale: 1= mild, 2= moderate, 3= severe TREATMENT: Manual Therapy: 1: Reassessment 2: MFR to B lower abdominals, supine 3: MFR to B adductors, supine 4: Reviewed self-STM techniques 5: Verbally reviewed HEP Skilled Intervention: Manual skills to improve joint mobility, ROM, and decrease pain. Utilized anatomy knowledge of the therapist, and assessment of patient's response to intervention. Billing Manual TherapyTreatment Minutes: 40 Total Treatment Time Minutes (timed and untimed codes) : 40 Jong Da Silva PT [facility] 12-05-2020 Note HNO ID: [id number] Author: Jong Da Silva PT Service: ? Author Type: Physical Therapist Type: Progress Notes Filed: 12/05/2020 1:54 PM Note Text: Episode Visit Count: 11 Therapist That Will Oversee The Plan Of Care: Jeni Dee PT Start of Care Date: 06/12/18 Onset Date: 05/18/18 Plan of Care Certification Date: 11/24/20 Next Certification Due Date: 01/23/21 Patient Identified by Name and Date of : Yes REHABILITATION AND SPORTS THERAPY PHYSICAL THERAPY TREATMENT NOTE ASSESSMENT: Frederick Tee demonstrated difficulty with continued bowel dysfunction per patient report, able to lengthen pelvic floor muscles with minimal cues. Patient tolerated manual therapy well. The patient will continue to benefit from ongoing skilled physical therapy to decrease soft tissue and muscle restrictions, improve bowel function, and improve overall functional activities. PLAN FOR NEXT VISIT: assess PF strength, continue manual work SUBJECTIVE: Patient Reason for Visit: Pt reports continued difficulty with bowel function. Pt reports feeling like nothing comes out. Pt reports difficulty relaxing, increased stress due to recent breakup. Pain: Pain Pain Level: 0 Post Treatment Pain Post Treatment Pain Level: No Change OBJECTIVE MEASURES WITH LEVEL OF FUNCTION: Pelvic Floor Difficulty evacuating / Excessive Straining: Yes Bowel Movement Frequency: 1x/day Bowel Aides / Supplements: Miralax 1x/day Pelvic Floor Muscle Assessment Consent for pelvic assessment/testing and treatment: Patient was educated regarding pelvic floor physical therapy assessment/treatment which may include pelvic floor and girdle muscle assessment externally or internally (vaginal or rectal approach).;Patient verbalized consent for the above treatment approaches today. Patient understands they have control of the treatment and an opportunity to stop treatment at any time. Pelvic Floor Muscle Assessment: Muscle Dynamics Ability to Lengthen pelvic floor: Yes Pelvic Floor Manual Assessment Upper abdominals: Bilateral (2/2, R>L) Lower abdominals: Bilateral (2/2, R>L) Pelvic Floor Tenderness/Hyperactivity: Tested Rectally in Tested Rectally in : Sidelying Obturator internus: Left (2/2) Puborectalis: Left (2/2) Tissue Restriction/Tenderness Scale: 1= mild, 2= moderate, 3= severe TREATMENT: Manual Therapy: 1: PF mm assessment, rectally 2: Gentle stretching to B pelvic floor, rectally, sidelying 3: PF lengthening, 2x10 4: MFR to B upper and lower abdominals 5: Reviewed toileting techniques to improve bowel function 6: Reviewed impact of stress of bowel function, importance of relaxation Skilled Intervention: Manual skills to improve joint mobility, ROM, and decrease pain. Utilized anatomy knowledge of the therapist, and assessment of patient's response to intervention. Billing: [facility]: Manual Therapy ([id number]): 1:1 time: 40 minutes (3 units: 38-52 mins) Total time / Length of visit: 40 minutes Jong Da Silva, PT [facility] 11-24-2020 Note HNO ID: [id number] Author: Jeni Dee PT Service: ? Author Type: Physical Therapist Type: Progress Notes Filed: 11/24/2020 1:32 PM Note Text: Episode Visit Count: 10 Therapist That Will Oversee The Plan Of Care: Jeni Dee PT Start of Care Date: 06/12/18 Onset Date: 05/18/18 Plan of Care Certification Date: 11/24/20 Next Certification Due Date: 01/23/21 Patient Identified by Name and Date of : Yes REHABILITATION AND SPORTS THERAPY PHYSICAL THERAPY RE-EVALUATION PLAN OF CARE UPDATE: Assessment: Frederick Tee exhibits difficulty with constipation . She continues to be limited with altered sexual function and compromised bowel function. She is progressing as expected towards her therapy goalssince not being seen over the last year. . She will benefit from continued skilled therapy requiring manual work and gentle therapeutic ex in order to further improve pelvic floor muscle dynamics/lengthening in order to improve ability to empty bowels. Functional gains: Decreased frequency of pain Goals for Episode of Care: updated 11/24/20 Incontinence: Patient to demonstrate independence with HEP Met Patient to urinate every 2 hours Met Increase strength of pelvic floor to to demonstrate a 10 sec hold 10x with full release NT Patient demonstrates ability to perform diaphragmatic breathing / relaxation Met Patient demonstrates ability to correctly isolate pelvic floor muscles NT Patient reports increased ability to fully empty bladder / bowels (not bowels) Partially Met Patient displays proper technique for bearing down without use of accessory muscles NT Patient displays improved muscle dynamics of pelvic floor including ability to lengthen muscles ongoing Pelvic Pain: Patient reports painfree intercourse Mostly Met Patient displays decreased muscle spasms in levator to allow for decreased pain levels Partially Met Patient Goals: improve ability empty the bowels. Planned Interventions, Frequency, and Duration: 1x/week, 8 weeks Total Number of Visits Planned: 8 Patient to be seen for Therapeutic exercise (94604);Neuromuscular re-education (59980);Manual therapy (29681);Therapeutic activities (03684);Patient/Family/Caregiver Education PLAN FOR NEXT VISIT: pelvic floor assessment rectally, assess external connective tissue Prognosis: Good Good due to: current objective clinical presentation SUBJECTIVE: Patient Reason for Visit: Pt returns to PT for continued issues with constipation and high tone pelvic floor. Pt states she has intermittent dyspareunia and thinks it is related to cystic ovaries. Pt had anal manometry, increased tone but able to expel balloon. . Patient Goals: improve ability empty the bowels. Functional Limitations: compromised bowel function Prior Level of Function: Independent without limitations Intake Information: Prescription present Previous Treatment: Pelvic Floor Physical Therapy? Pain: Pain Pain Level: 0 Post Treatment Pain Post Treatment Pain Level: No Change PROMIS Scales T-scores: mean of general population = 50. 5 points is clinically meaningfully difference Percentiles provide an indication of how the patient's score ranks in relation to the general population. Higher percentile rankings indicate better function/quality of life. 50th percentile is the average of the general population and indicates half of respondents had a worse score. T-scores: mean of general population = 50. 5 points is clinically meaningfully difference Percentiles provide an indication of how the patient's score ranks in relation to the general population. Higher percentile rankings indicate better function/quality of life. 50th percentile is the average of the general population and indicates half of respondents had a worse score. OBJECTIVE MEASURES WITH LEVEL OF FUNCTION: Pelvic Floor Menstruation: pretty regular, most recent a week late Control Method: none Pregnancies: 0 Pain with penetration: Deep;Pain after intercourse History of low back pain: Yes Urinary/Bowel History : Urinary History;Bowel History Difficulty starting stream: No Incomplete emptying: Sometimes Stress Incontinence: No Urgency: No Fluid Intake: Water;Tea Tea : 3 Water (8 oz glasses): 64 Daytime Voiding Interval: 2 Difficulty evacuating / Excessive Straining: Yes Incomplete emptying: Sometimes Bowel Movement Frequency: 1 (except this last week due to cycle?) Bowel Movement Consistency ([place]) : 7: Watery, no solid pieces;4: Like a sausage or snake, smooth and soft;5: Soft blobs with clear cut edges Fecal incontinence: Yes Liquid stool: (when she was taking miralax 2x a day) Decreased warning time: Sometimes Daily Dietary Fiber/ Food Intake: trying to get more fiber in with food Bowel Aides / Supplements: Miralax 1x a day, still playing with it. Pelvic Floor Muscle Assessment Consent for pelvic assessment/testing and (more content not included)... [facility] 10-21-2020 Note Procedure (CORSMBipin) FREDERICK TEE ([id number]) 1995 F Date Time Provider Department 10/21/20 3:00 PM MANOMETRY CORSMN During your visit today, we recorded the following information about you: Referring Provider: NEAL ANGELES [[id number]] Allergies As of Date: 10/21/2020 Noted Allergy Reaction LINZESS (LINACLOTIDE) 09/16/2020 14 - Other: See Comments Comments: Dizziness Date Reviewed: 10/02/2020 Reviewed by: Neal Angeles MD - Fully Assessed Reason for Visit: Manometry [780] Primary Visit Diagnosis:Constipation by outlet obstruction [K59.02] Prescriptions as of 10/21/2020 Sig: POLYETHYLENE GLYCOL 3350 17 G* Take 17 g by mouth twice nigel* BISACODYL 5 MG TABLET,DELAYED* Take two (2) each time, as ex* Problem List As Of Date 10/21/2020 Noted Resolved OAB (overactive bladder) [N32.81] 05/18/2018 Pelvic floor dysfunction [M62.89] 05/18/2018 Muscle spasm [M62.838] 06/12/2018 Muscle weakness [M62.81] 07/12/2018 Encounter Status:Closed by ABDIAS NG on 10/21/20 [facility] 10-02-2020 Note HNO ID: [id number] Author: Sangeeta Elena RN Service: ? Author Type: Registered Nurse Type: Nursing Progress Note Filed: 10/02/2020 1:47 PM Note Text: Patient states readiness for discharge. Assisted with dressing Dr Angeles at bedside [facility] 09-22-2020 Note Procedure (OBGYWM) TEEFREDERICK CARDENAS ([id number]) 1995 F Date Time Provider Department 09/22/20 4:40 PM NIRU PABON During your visit today, we recorded the following information about you: Niru King MD 09/22/2020 1:04 PM Signed Referring Provider: SELF [[id number]] Allergies As of Date: 09/22/2020 Noted Allergy Reaction LINZESS (LINACLOTIDE) 09/16/2020 14 - Other: See Comments Comments: Dizziness Date Reviewed: 09/16/2020 Reviewed by: Mary Almazan LPN - Fully Assessed Reason for Visit: PRODUCTION MAINTENANCE MECHANIC Ultrasound [[id number]] Primary Visit Diagnosis:Pelvic fluid collection [R18.8] Prescriptions as of 09/22/2020 Sig: POLYETHYLENE GLYCOL 3350 17 G* Take one (1) bottle in 2 quar* BISACODYL 5 MG TABLET,DELAYED* Take two (2) each time, as ex* Problem List As Of Date 09/22/2020 Noted Resolved OAB (overactive bladder) [N32.81] 05/18/2018 Pelvic floor dysfunction [M62.89] 05/18/2018 Muscle spasm [M62.838] 06/12/2018 Muscle weakness [M62.81] 07/12/2018 Encounter Status:Closed by NIRU GARZA MD on 09/22/20 [facility] 09-22-2020 Note HNO ID: [id number] Author: Niru Garza Service: ? Author Type: Physician Type: Progress Notes Filed: 09/22/2020 1:04 PM Note Text: [facility] 09-16-2020 Note HNO ID: [id number] Author: Theodore Cobb Service: ? Author Type: Nurse Practitioner Type: Progress Notes Filed: 09/16/2020 8:27 PM Note Text: Frederick Tee a 24 year old female who presents today for reported ED follow up. I saw the patient in consultation on 02/26/20 regarding chronic constipation. That note has been reviewed. The patient reports that she was seen at the [facility] ED on 09/13/20 for bloody bowel movements and was recommended to set up colonoscopy. She has signed a release for those documents. Presenting complaint: bloody stools and ongoing abdominal pain The patient presents today stating that she has a bowel movement every few days. The stools are hard, she strains. She experiences anal burning and stinging when the blood is seen. She tells me that the CT scan showed possible Crohn's. The patient had been prescribed Linzess last fall for chronic constipation. She tells me that she stopped taking it since it made her feel dizzy and only caused small bowel movements. I have put the intolerance on her list. Continues with RUQ discomfort. US and HIDA scan last fall were unremarkable. She agrees to proceed with endoscopies. REVIEW OF SYSTEMS: GENERAL: Weight loss, about 10 pounds Last 6 Encounter Wt Readings: Date: Wt: 09/16/2020 65.8 kg (145 lb) 09/16/2020 66 kg (145 lb 6.4 oz) 04/07/2020 69.4 kg (153 lb) 02/26/2020 69.9 kg (154 lb) 09/29/2019 71.7 kg (158 lb) 02/02/2019 69.3 kg (152 lb 12.8 oz) RESPIRATORY: History of asthma. No recent respiratory complaints CARDIOVASCULAR: Negative for chest pain, leg swelling, hypertension, CHF or palpitations GI: The patient states that her appetite has been poor. She seldom gets hungry. There has been some nausea, no vomiting. She denies dysphagia and denies odynophagia. There has not been indigestion or heartburn. There has not been regurgitation. Bowel habits have been regular. There has not been diarrhea. There has been constipation. The patient admits to rectal bleeding. There has not been melena. Intermittent abdominal pain that is located in the right upper quadrant. PRODUCTION MAINTENANCE MECHANIC: Saw PRODUCTION MAINTENANCE MECHANIC earlier today LMP: 08/30/20. MUSCULOSKELETAL: Right low back pain PSYCH: Positive for depression. HEMATOLOGY/LYMPHOLOGY Negative for prolonged bleeding, bruising easily or swollen nodes ENDOCRINE: Negative for diabetes or thyroid. NEURO: No history of headaches, syncope, paralysis, seizures or tremors All other reviewed and negative other than HPI. PAST MEDICAL HISTORY Diagnosis Date - Asthma, intermittent - Constipation - History of depression - Irregular periods PAST SURGICAL HISTORY Procedure Laterality Date - PAST SURGICAL HISTORY OF extraction of wisdom teeth under local FAMILY HISTORY Problem Relation Age of Onset - other (liver cancer) Mother - Breast Cancer Maternal Grandmother - Skin Cancer Maternal Grandfather - Cancer Paternal Grandfather No current outpatient medications on file. No current facility-administered medications for this visit. SOCIAL HISTORY: Patient is single. She has never smoked. Reports her alcohol or substance use as never. PHYSICAL EXAMINATION: Blood pressure 102/68, pulse 74, height 163.2 cm (5' 4.25), weight 65.8 kg (145 lb), last menstrual period 08/30/2020, SpO2 99 %. General Appearance: Well appearing, alert, in no acute distress, well-hydrated, well nourished. Skin: Skin color, texture, turgor normal. Head: Normocephalic, no abnormalities. Eyes: Anicteric sclera. Oropharynx: Able to open her mouth more than 2 fingers wide. Neck: Supple, no adenopathy; thyroid symmetric, normal size. Lungs: Lungs clear to auscultation. Heart: RRR without murmur. Abdomen: Abdomen soft. TTP mid RUQ, slight TTP lower abdomen, mid line . Bowel sounds normal. No masses, organomegaly. Extremities: No deformities or edema. Neurologic: Gait normal. Sensation grossly intact. Impression: ongoing abdominal pain 2)chronic constipation 3)bright red rectal bleeding with bowel movements 4) reported abnormal CT Plan: The patient will be scheduled for an upper endoscopy as well as a colonoscopy. She will require MAC. Preparation for the procedures, using a modified Miralax Gatorade prep, have been explained in detail. The risks, benefits, anticipated outcomes and possible complications were mentioned, including including failure to complete the endoscopy and perforation. I explained the procedure in understandable terms and the patient was given printed material concerning the planned procedure. The patient had the opportunity to ask questions concerning the planned procedure. The patient freely consents to the planned procedure. The patient is scheduled for a procedure at [facility]. I have explained that his/her health and safety, as well as that of our staff is important. The risk of exposure to, or potential harm posed by the COVID-19 virus with having (more content not included)... [facility] 09-16-2020 Note HNO ID: [id number] Author: Jacinta Mitchell) Aguilar Service: ? Author Type: Nurse Practitioner Type: Progress Notes Filed: 09/16/2020 2:51 PM Note Text: Frederick Tee is a 24 year old female who presents for ED follow up. HPI: pain started as pressure in the pelvic area about 1 week ago and then on09/13 went to the ED for blood stool x3 episodes and pain. US showed free fluid in the pelvic area. Today just a dull ache rates it 1-2 and bloody stools has stopped. PAST MEDICAL HISTORY Diagnosis Date - Asthma, intermittent - Constipation - History of depression - Irregular periods PAST SURGICAL HISTORY Procedure Laterality Date - PAST SURGICAL HISTORY OF extraction of wisdom teeth under local FAMILY HISTORY Problem Relation Age of Onset - other (liver cancer) Mother - Breast Cancer Maternal Grandmother - Skin Cancer Maternal Grandfather - Cancer Paternal Grandfather Social History Tobacco Use - Smoking status: Never Smoker - Smokeless tobacco: Never Used Substance Use Topics - Alcohol use: No - Drug use: No Current Outpatient Medications Medication Sig - nystatin (MYCOSTATIN) 100,000 unit/mL suspension Take 5 mL by mouth four times daily. 1tsp swish in mouth for several minutes, then swallow (or expectorate) 4 times daily until gone. (Patient not taking: Reported on 09/16/2020 ) No current facility-administered medications for this visit. Allergies As of Date: 09/16/2020 (No Known Allergies) Fully Assessed 09/16/2020 REVIEW OF SYSTEMS Abdomen: No bloating, early satiety, indigestion, or increased flatulence. No nausea, vomiting, diarrhea, or constipation. +dull pelvic pain Bladder: No dysuria, gross hematuria, urinary frequency, urinary urgency, or incontinence. Expanded ROS: N/A Allergies and current medication updated:Yes EXAM: Wt 145 lb 6.4 oz (66.0kg) LMP 08/30/2020 GENERAL: pleasant, female in no apparent distress HEENT: Normocephalic, atraumatic, mucus membranes moist and no lesions CHEST: Normal inspiratory effort NEURO: alert and oriented x3,exam grossly non-focal EXTREMITIES: normal ASSESSMENT/PLAN: 1. Pelvic fluid collection - ICD9: 789.59, ICD10: R18.8 - PELVIC US WHI - Follow up as needed Jacinta Sheikh APRN.DIGITAL STRATEGIST Medical Decision Making: Problems: Low: Acute, uncomplicated illness or injury Data: Unique test(s) ordered: 1 Risk: Low: Low risk from testing/treatment Medical Decision Making Level: 3 - Low [facility] Evaluation note Diagnosis Pleurisy- Primary Pleurisy without mention of effusion or current tuberculosis [facility] Diagnosis Chest pain, unspecified type documented in this encounter [facility] note* Diagnosis Pelvic pain- Primary Dyspareunia in female Chronic idiopathic constipation Unspecified constipation documented in this encounter [facility] for visit Narrative* Diagnostic Procedure Only (Urgent) - Closed Specialty Diagnoses / Procedures Referred By Contac t Referred To Contact XR IMAGING Diagnoses Foot pain, right Procedures XR FOOT GENERAL 3V AP/LAT/OBL RIGHT X-RAY FOOT MINIMUM 3 VIEWS Aliya Guevara, STAR.DIGITAL STRATEGIST [address] [place] [address] [place] [id number] Referral ID Status Reason Start Date Expiration Date V isits Requested Visits Authorized [id number] Closed Auto-Generate d Referral 04/20/2021 05/20/2022 1 1 [facility] Summary Purpose Family History No Family History Records FoundNo Family History Records FoundNo Family History Records FoundNo Family History Records FoundNo Family History Records Found Advance Directives Documents on File Type Date Recorded Patient Customer Support Manager Expl anation Advance Directive(s) 10/02/2020 12:05 PM Additional Source Comments INFORMATION SOURCE (unrecogn ized section and content) DATE CREATED AUTHOR 10/29/2018 [facility] DATE CREATED AUTHOR AUTHOR'S ORGANIZ ATION 09/17/2020 [facility] DATE CREATED AUTHOR AUTHOR'S ORGANIZ ATION 08/31/2021 [facility] DATE CREATED AUTHOR AUTHOR'S ORGANIZ ATION 09/28/2021 [facility] DATE CREATED AUTHOR AUTHOR'S ORGANIZ ATION 01/25/2025 [facility] Source Comments (unrecognize d section and content) In the event this informatio n is protected by the Federal Confidentiality of Alcohol and Drug Abuse Patient Records regulations: The Federal rules restrict any use of the information to criminally investigate or prosecute any alcohol or drug abuse patient.[facility] the event this information is protected by the Federal Confidentiality of Alcohol and Drug Abuse Patient Records regulations: The Federal rules restrict any use of the information to criminally investigate or prosecute any alcohol or drug abuse patient.[facility] the event this information is protected by the Federal Confidentiality of Alcohol and Drug Abuse Patient Records regulations: The Federal rules restrict any use of the information to criminally investigate or prosecute any alcohol or drug abuse patient.[facility] Reason for Visit (unrecogniz ed section and content) Reason Comments Nausea Pt denied vomiting, sore throat pain rated 2 Chest Pain intermittent x2 days Reason Onset Date Comments Pelvic Pain 12/14/2024 Reason Comments New Patient Lower R abdominal pa in Care Teams (unrecognized sec tion and content) Preschool Program Director Relationship Specialty Start Date End Date May Taylor [address] [place] [address] PCP - General Pediatrics 12/14/17 Preschool Program Director Relationship Specialty Start Date End Date May Taylor MD [address] [place] [address] PCP - General Pediatrics 12/14/17 Preschool Program Director Relationship Specialty Start Date End Date May Taylor MD [address] [place] [address] PCP - General Pediatrics 12/14/17 FOR RECORDS PERTAINING TO PATIENTS WHO ARE OR HAVE BEEN ENROLLED IN A CHEMICAL DEPENDENCY/SUBSTANCEABUSE PROGRAM, SOME INFORMATION MAY BE OMITTED. This clinical summary was aggregated from multiple sources. Caution should be exercised in using it in the provision of clinical care. This summary normalizes information from multiple sources, and as a consequence, information in this document may materially change the coding, format and clinical context of patient data. In addition, data may be omitted in some cases. CLINICAL DECISIONS SHOULD BE BASED ON THE PRIMARY CLINICAL RECORDS. [facility] [facility]. provides no warranty or guarantee of the accuracy or completeness of information in this document.
[2025-05-20 07:39] LABS: Mucous, Urine 0 SEEN /hpf (<or=2+)
[2025-05-20 08:23] LABS: Color, Urine Yellow (Yellow); Glucose, Dipstick Normal (Normal); Leukocyte Esterase-Dipstick 25 /ul (Negative); Nitrite-Dipstick Negative (Negative); Occult Blood-Urine 10 /ul (Negative); Protein-Dipstick 30 mg/dl (Negative); Specific Gravity, Urine 1.025 (1.002-1.030); Urine Bilirubin Dipstick Negative (Negative)
[2025-05-20 08:33] LABS: Ketone-Dipstick 150 mg/dl (Negative)
[2025-05-20 08:35] LABS: Red Blood Cells-Urine 0-5 SEEN /hpf (0-5); Squamous Epithelial Cells - UA 0-5 SEEN /hpf (5-10)
[2025-05-20 08:55] VITALS: BP 104/68; PULSE 110; O2SAT 100
[2025-05-20 09:13] VITALS: BP 105/66; PULSE 110; RESP 16; TEMP 36.8; O2SAT 99
== END 2025-05-20 09:14 | disposition home or self-care (01) ==
PROVIDERS: Emergency Provider Emergency Medicine; Visit Provider Emergency Medicine
DX: O99.611 Diseases of the digestive system complicating pregnancy, first trimester (principal); K92.0 Hematemesis; O21.1 Hyperemesis gravidarum with metabolic disturbance; K21.9 Gastro-esophageal reflux disease without esophagitis; O23.41 Unspecified infection of urinary tract in pregnancy, first trimester; Z3A.12 12 weeks gestation of pregnancy; Z79.82 Long term (current) use of aspirin
CPT/HCPCS: 80048; 81001; 85025; 87086; 96361; 96374; 99284; A4216